=== PATIENT | male | born 1970 | race Caucasian/White ===

== ENCOUNTER 2017-03-10 22:48 | Emergency (ER) | payer MEDICARE, MEDICAID ==
[2017-03-11] MEDS ORDERED: HYDROCODONE/ACETAMINOPHEN 5-325 MG TABLET PO ONE (02:23)
--- NOTE | 2017-03-11 02:26 | ER Document Report ---
ED Hip Pain/Injury - General Chief Complaint: Hip Pain Stated Complaint: HIP PAIN Time Seen by Provider: 03/11/17 02:13 Mode of Arrival: Medic Information source: Patient Notes: Patient is a 46-year-old male presents to the ER today via EMS for right hip pain that is chronic. Patient states that he had x-rays and an MRI performed last month in [place] which showed "possible of the bone of the leg, very little cartilage and [id number]." Patient has an appointment this Thursday with a family care provider here in the area as he just moved here. He states that it is just very difficult to move because of the pain and that he hasn't gotten out of the bed for 3 days due to the pain. TRAVEL OUTSIDE OF THE [place] IN LAST 30 DAYS: No - Related Data Allergies/Adverse Reactions: IV dye Allergy (Uncoded 03/11/17 02:11) Past Medical History - General Information source: Patient - Social History Smoking Status: Unknown if Ever Smoked Family History: Reviewed & Not Pertinent Patient has suicidal ideation: No Patient has homicidal ideation: No Renal/ Medical History: Denies: Hx Peritoneal Dialysis Past Surgical History: Reports: Hx Cholecystectomy, Hx Orthopedic Surgery Review of Systems - Review of Systems Constitutional: No symptoms reported EENT: No symptoms reported Cardiovascular: No symptoms reported Respiratory: No symptoms reported Gastrointestinal: No symptoms reported Genitourinary: No symptoms reported Male Genitourinary: No symptoms reported Musculoskeletal: See HPI Skin: No symptoms reported Hematologic/Lymphatic: No symptoms reported Neurological/Psychological: No symptoms reported Physical Exam - Vital signs Vitals: Temp Pulse Resp BP Pulse Ox 97.7 F 138 H 18 113/74 96 03/10/17 23:13 03/10/17 23:13 03/10/17 23:13 03/10/17 23:13 03/10/17 23:13 - Notes Notes: PHYSICAL EXAMINATION: GENERAL: Obviously uncomfortable, but in no acute distress. HEAD: Atraumatic, normocephalic. EYES: Pupils equal round and reactive to light, extraocular movements intact, sclera anicteric, conjunctiva are normal. NECK: Normal range of motion, supple without lymphadenopathy LUNGS: CTAB and equal. No wheezes rales or rhonchi. HEART: Regular rate and rhythm without murmurs ABDOMEN: Soft, no tenderness. No guarding, no rebound BACK: no vertebral tenderness, normal ROM GI/: no CVA tenderness EXTREMITIES: Tender over lateral right hip, decreased range of motion of the right leg secondary to pain at the hip, no pitting edema. No cyanosis. NEUROLOGICAL: Cranial nerves grossly intact. Normal sensory/motor exams. PSYCH: Normal mood, normal affect. SKIN: Warm, Dry, normal turgor, no rashes or lesions noted Course - Re-evaluation Re-evalutation: 03/11/17 02:25 Patient started he had radiology as recent as last month and no new injury of this chronic problem. I will provide some pain medication patient follow-up with family care provider he has an appointment with later on in the week. - Vital Signs Vital signs: Temp Pulse Resp BP Pulse Ox 97.7 F 105 H 18 116/77 98 03/10/17 23:13 03/11/17 02:50 03/11/17 02:50 03/11/17 02:50 03/11/17 02:50 Discharge - Discharge Clinical Impression: Pain of right hip Condition: Stable Disposition: HOME, SELF-CARE Additional Instructions: Return immediately for any new or worsening symptoms. Follow up with primary care provider, call tomorrow to make followup appointment. Prescriptions: Hydrocodone/Acetaminophen [[place] 5-325 mg Tablet] 1 tab PO Q4 PRN #15 tablet PRN Reason:
[2017-03-11 02:51] VITALS: BP 116/77
== END 2017-03-11 02:50 | disposition home or self-care (01) ==
LOC: ER 22:48
DX: G89.29 Other chronic pain (principal); M25.551 Pain in right hip; Z91.041 Radiographic dye allergy status
CPT/HCPCS: 99283; A9270

== ENCOUNTER 2017-04-04 19:29 | Emergency (ER) | payer MEDICARE, MEDICAID ==
[2017-04-04] MEDS ORDERED: HYDROMORPHONE HCL INJ/PF 2 MG/ML AMPULE IM ONE (20:10)
--- NOTE | 2017-04-04 20:13 | ER Document Report ---
ED Medical Screen (RME) - General Chief Complaint: Hip Pain Stated Complaint: RIGHT HIP PAIN Time Seen by Provider: 04/04/17 20:01 Mode of Arrival: Wheelchair Information source: Patient Notes: This is a 46-year-old male with multiple medical problems to include insulin- dependent diabetes who presents with severe chronic right hip pain. He states that he has been dealing with this pain for years. He is awaiting follow-up by ortho, he states he had an MRI done 2 months ago in [place], but that his ortho physician here Dr. Mendoza has not been able to get the report yet. He states that he has been out of multiple medications including insulin for several months and that he does not have a glucometer. He reports blurry vision , no fevers. I have greeted and performed a rapid initial assessment of this patient. A comprehensive ED assessment and evaluation of the patient, analysis of test results and completion of the medical decision making process will be conducted by additional ED providers. TRAVEL OUTSIDE OF THE [place] IN LAST 30 DAYS: No - Related Data Allergies/Adverse Reactions: IV dye Allergy (Uncoded 03/11/17 02:11) Past Medical History Renal/ Medical History: Denies: Hx Peritoneal Dialysis Past Surgical History: Reports: Hx Cholecystectomy, Hx Orthopedic Surgery Physical Exam - Vital signs Vitals: Temp Pulse Resp BP Pulse Ox 97.7 F 111 H 20 147/86 H 95 04/04/17 19:35 04/04/17 19:35 04/04/17 19:35 04/04/17 19:35 04/04/17 19:35 Course - Vital Signs Vital signs: Temp Pulse Resp BP Pulse Ox 97.7 F 111 H 20 147/86 H 95 04/04/17 19:35 04/04/17 19:35 04/04/17 19:35 04/04/17 19:35 04/04/17 19:35
[2017-04-04 20:40] LABS: ABSOLUTE BASOPHILS # (AUTO) 0.1 10^3/uL (0.0-0.2); ABSOLUTE EOSINOPHILS # (AUTO) 0.3 10^3/uL (0.0-0.6); ABSOLUTE MONOCYTES (AUTO) 0.8 10^3/uL (0.1-1.4); ABSOLUTE NEUT (AUTO) 6.4 10^3/uL (1.7-8.2); BASOPHILS % (AUTO) 0.8 % (0-2); EOSINOPHILS % (AUTO) 2.5 % (0-6); HEMATOCRIT 46.1 % (37.9-51.0); HEMOGLOBIN 15.7 g/dL (13.5-17.0); LYMPHOCYTES % (AUTO) 28.4 % (13-45); MEAN CORPUSCULAR HEMOGLOBIN 32.8 pg (27.0-33.4); MEAN CORPUSCULAR VOLUME 97 fl (80-97); MONOCYTES % (AUTO) 7.5 % (3-13); RED BLOOD COUNT 4.78 10^6/uL (4.35-5.55); RED CELL DISTRIBUTION WIDTH 13.3 % (11.5-14.0); SEGMENTED NEUTROPHILS % (AUTO) 60.8 % (42-78); WHITE BLOOD COUNT 10.5 10^3/uL (4.0-10.5)
--- NOTE | 2017-04-04 20:52 | ER Document Report ---
ED General - General Chief Complaint: Hip Pain Stated Complaint: RIGHT HIP PAIN Time Seen by Provider: 04/04/17 20:01 Mode of Arrival: Wheelchair Information source: Patient Notes: Patient presents complaining of chronic right hip pain. Patient states he was told that he will likely need a hip replacement that he is waiting to follow-up with orthopedic doctor. Patient additionally reports that he has a history of diabetes but has been off of his medication for the past 3 months. Patient states he used to take Janumet and Lantus but is uncertain of the dosages. TRAVEL OUTSIDE OF THE [place] 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 Drug Abuse: None Occupation: None Lives with: Spouse/Significant other Family History: Reviewed & Not Pertinent Patient has suicidal ideation: No Patient has homicidal ideation: No - Past Medical History Cardiac Medical History: Reports: Hx Heart Attack - 2009, Hx Hypercholesterolemia, Hx Hypertension Pulmonary Medical History: Reports: Hx Bronchitis Endocrine Medical History: Reports: Hx Diabetes Mellitus Type 2 Renal/ Medical History: Denies: Hx Peritoneal Dialysis GI Medical History: Reports: Hx Gastroesophageal Reflux Disease Musculoskeltal Medical History: Reports Hx Arthritis Psychiatric Medical History: Reports: Hx Bipolar Disorder, Hx Depression - & personality disorder, anxiety Past Surgical History: Reports: Hx Cholecystectomy, Hx Orthopedic Surgery - Immunizations Hx Diphtheria, Pertussis, Tetanus Vaccination: No Review of Systems - Review of Systems Constitutional: No symptoms reported. denies: Fever, Recent illness EENT: No symptoms reported Cardiovascular: No symptoms reported Respiratory: No symptoms reported Gastrointestinal: No symptoms reported. denies: Abdominal pain, Nausea, Vomiting Genitourinary: No symptoms reported Male Genitourinary: No symptoms reported Musculoskeletal: Joint pain - right hip Skin: No symptoms reported Hematologic/Lymphatic: No symptoms reported Neurological/Psychological: No symptoms reported Physical Exam - Vital signs Vitals: Temp Pulse Resp BP Pulse Ox 97.7 F 111 H 20 147/86 H 95 04/04/17 19:35 04/04/17 19:35 04/04/17 19:35 04/04/17 19:35 04/04/17 19:35 - General General appearance: Appears well, Alert In distress: None - HEENT Head: Normocephalic, Atraumatic Eyes: Normal Conjunctiva: Normal Nasal: Normal Mouth/Lips: Normal Mucous membranes: Normal Neck: Normal, Supple. No: Lymphadenopathy - Respiratory Respiratory status: No respiratory distress Chest status: Nontender Breath sounds: Normal Chest palpation: Normal - Cardiovascular Rhythm: Regular Heart sounds: S1 appreciated, S2 appreciated Murmur: No Pulses: Normal: Posterior tibial, Dorsalis pedis - Abdominal Inspection: Normal Distension: No distension Tenderness: Nontender - Back Back: Normal, Nontender - Extremities General upper extremity: Normal inspection, Normal strength General lower extremity: Tender - right lateral hip tenderness that increases with flexion, abd/adduction, normal skin color and temperature overlying joint - Neurological Neuro grossly intact: Yes Cognition: Normal Jose A Coma Scale Eye Opening: Spontaneous Jose A Coma Scale Verbal: Oriented [place] Coma Scale Motor: Obeys Commands Jose A Coma Scale Total: 15 - Psychological Associated symptoms: Normal affect, Normal mood - Skin Skin Temperature: Warm Skin Moisture: Dry Skin irregularity: Rash - Erythematous rash to trunk and waistband area Course - Re-evaluation Re-evalutation: 04/05/17 00:[address] rothman regarding pt presentation, recommends only starting back initially on janumet (as we cannot confirm the doses of his medications and has not been on any diabetic medications for 6 months or longer) - Vital Signs Vital signs: Temp Pulse Resp BP Pulse Ox 97.7 F 92 18 138/91 H 97 04/04/17 19:35 04/05/17 01:13 04/05/17 01:13 04/05/17 01:13 04/05/17 01:13 - Laboratory Result Diagrams: 04/04/17 20:30 04/04/17 20:30 Laboratory results interpreted by me: 04/04/17 04/04/17 04/04/17 20:30 20:30 21:30 Plt Count 139 L BUN 22 H Glucose 552 H* POC Glucose Urine Glucose (UA) >=500 H 04/04/17 23:42 Plt Count BUN Glucose POC Glucose 333 H Urine Glucose (UA) 04/05/17 00:19 Labs- Entire Visit 04/04/17 04/04/17 04/04/17 20:30 20:30 21:30 WBC 10.5 RBC 4.78 Hgb 15.7 Hct 46.1 MCV 97 MCH 32.8 MCHC 34.0 RDW 13.3 Plt Count 139 L Seg Neutrophils % 60.8 Lymphocytes % 28.4 Monocytes % 7.5 Eosinophils % 2.5 Basophils % 0.8 Absolute Neutrophils 6.4 Absolute Lymphocytes 3.0 Absolute Monocytes 0.8 Absolute Eosinophils 0.3 Absolute Basophils 0.1 Sodium 137.6 Potassium 4.6 Chloride 99 Carbon Dioxide 24 Anion Gap 15 BUN 22 H Creatinine 0.92 Est GFR ( Amer) > 60 Est GFR (Non-Af Amer) > 60 Glucose 552 H* POC Glucose Calcium 9.7 Total Bilirubin 0.6 Direct Bilirubin 0.4 Indirect Bilirubin Not Reportable Neonat Total Bilirubin Not Reportable AST 34 ALT 46 Alkaline Phosphatase 98 Total Protein 7.5 Albumin 4.4 Urine Color STRAW Urine Appearance CLEAR Urine pH 5.0 Ur Specific [place] 1.032 Urine Protein NEGATIVE Urine Glucose (UA) >=500 H Urine Ketones NEGATIVE Urine Blood NEGATIVE Urine Nitrite NEGATIVE Urine Bilirubin NEGATIVE Urine Urobilinogen NEGATIVE Ur Leukocyte Esterase NEGATIVE Urine WBC (Auto) 0 Urine Ascorbic Acid NEGATIVE 04/04/17 23:42 WBC RBC Hgb Hct MCV MCH MCHC RDW Plt Count Seg Neutrophils % Lymphocytes % Monocytes % Eosinophils % Basophils % Absolute Neutrophils Absolute Lymphocytes Absolute Monocytes Absolute Eosinophils Absolute Basophils Sodium Potassium Chloride Carbon Dioxide Anion Gap BUN Creatinine Est GFR ( Amer) Est GFR (Non-Af Amer) Glucose POC Glucose 333 H Calcium Total Bilirubin Direct Bilirubin Indirect Bilirubin Neonat Total Bilirubin AST ALT Alkaline Phosphatase Total Protein Albumin Urine Color Urine Appearance Urine pH Ur Specific [place] Urine Protein Urine Glucose (UA) Urine Ketones Urine Blood Urine Nitrite Urine Bilirubin Urine Urobilinogen Ur Leukocyte Esterase Urine WBC (Auto) Urine Ascorbic Acid 04/05/17 07:31 Discharge - Discharge Clinical Impression: Chronic right hip pain, Skin rash, Hx of diabetes mellitus Condition: Stable Disposition: HOME, SELF-CARE Instructions: Scabies ([facility]), Diabetes ([facility]), Chronic Pain Control ([facility]), Oral Narcotic Medication ([facility]), Anti-Mite Skin Creams Additional Instructions: Return immediately for any new or worsening symptoms Followup with your primary care provider, call tomorrow to make a followup appointment Follow-up with your orthopedic doctor for further management of your chronic hip pain. Monitor your blood sugar at least twice a day. Prescriptions: Blood-Glucose Meter [Tweetworksuch Ultramini] 1 each MC BID #1 kit Hydrocodone/Acetaminophen [[place] 5-325 Tablet] 1 each PO Q4 PRN #15 tablet PRN Reason: Permethrin [Elimite] 60 gm TP ONCE #60 gm Sitagliptin Phos/Metformin HCl [Janumet 50-500 mg Tablet] 1 each PO BID #60 tablet Referrals: FAHEEM CHOI PA-C [NO LOCAL MD] - Follow up tomorrow
[2017-04-04 20:57] LABS: ALANINE AMINOTRANSFERASE 46 U/L (21-72); ALBUMIN 4.4 g/dL (3.5-5.0); ALKALINE PHOSPHATASE 98 U/L (38-126); ANION GAP 15 (5-19); ASPARTATE AMINO TRANSFERASE 34 U/L (17-59); BILIRUBIN,DIRECT 0.4 mg/dL (0.0-0.4); BILIRUBIN,TOTAL 0.6 mg/dL (0.2-1.3); BLOOD UREA NITROGEN 22 mg/dL (7-20); CALCIUM 9.7 mg/dL (8.4-10.2); CARBON DIOXIDE 24 mmol/L (22-30); CHLORIDE 99 mmol/L (98-107); CREATININE RESULT 0.92 mg/dL (0.52-1.25); POTASSIUM 4.6 mmol/L (3.6-5.0); SODIUM 137.6 mmol/L (137-145); TOTAL PROTEIN 7.5 g/dL (6.3-8.2)
[2017-04-04 21:05] LABS: GLUCOSE 552 mg/dL (75-110)
[2017-04-04] MEDS ORDERED: INSULIN REG, HUMAN 100 UNIT/ML 3 ML VIAL (PYX) SUBCUT ONE (21:19)
[2017-04-04] MEDS ORDERED: NORMAL SALINE 1000 ML 1,000 ML IV ONE ×2 (21:19→22:37)
[2017-04-04] MEDS ORDERED: ONDANSETRON HCL INJ/PF 4 MG/2 ML SDV IV ONE (21:33)
[2017-04-04 21:50] LABS: APPEARANCE,URINE CLEAR; BILIRUBIN,URINE NEGATIVE (NEGATIVE); GLUCOSE, URINE >=500 mg/dL (NEGATIVE); KETONES,URINE NEGATIVE (NEGATIVE); LEUKOCYTE ESTERASE,URINE NEGATIVE (NEGATIVE); NITRITE,URINE NEGATIVE (NEGATIVE); PROTEIN,URINE NEGATIVE (NEGATIVE); URINE SPECIFIC GRAVITY 1.032; UROBILINOGEN,URINE NEGATIVE mg/dL (<2.0)
[2017-04-05 01:15] VITALS: BP 138/91
== END 2017-04-05 01:00 | disposition home or self-care (01) ==
LOC: ER 19:29
DX: G89.29 Other chronic pain (principal); M25.551 Pain in right hip; E11.9 Type 2 diabetes mellitus without complications; T38.3X6A Underdosing of insulin and oral hypoglycemic [antidiabetic] drugs, initial encounter; Z91.138 Patient's unintentional underdosing of medication regimen for other reason; Z91.14 Patient's other noncompliance with medication regimen; R21 Rash and other nonspecific skin eruption; I25.2 Old myocardial infarction; I10 Essential (primary) hypertension; Z72.0 Tobacco use; Z91.041 Radiographic dye allergy status
CPT/HCPCS: 99283; 96372; 96374; 36415; 82962; 85025; 80053; 81001; J1170; A9270; J2405; J7030; J1815

== ENCOUNTER 2017-05-28 12:54 | Emergency (ER) | payer MEDICARE, MEDICAID ==
[2017-05-28] MEDS ORDERED: ASPIRIN 81 MG TABLET, CHEWABLE PO ONE (12:58)
--- NOTE | 2017-05-28 13:16 | ER Document Report ---
ED Cardiac - General Stated Complaint: CHEST PAIN Time Seen by Provider: 05/28/17 13:05 Mode of Arrival: Medic Notes: 47 yo exsmoker, tobbaco snuff, recovering ETOH-2 cans beers last week, male, hx PE,panreatitis, sleep apnea, hypertension, DM 2, hyperliedemia. Fam Hx:lung cancer, DM, CAD-mom, was brought in by EMS with c/o shortness of breath, someone sitting on my chest, weak, since 0100 while at [facility]. When got home tried to sleep got sharp pains in chest and ribs with shortness of breath woke him up. Right now has dull lower sternal pain that radiates through to his back. Feels like when he had the DVT in right leg and PE. Sharp pain in left leg a few seconds ago. No recent recent upper respiratory illness, no fever. Nausea this am, no vomit, diarrhea x 4 early this morning. TRAVEL OUTSIDE OF THE [place] IN LAST 30 DAYS: No - Related Data Allergies/Adverse Reactions: IV dye Allergy (Uncoded 03/11/17 02:11) Past Medical History - General Information source: Patient - Social History Smoking Status: Former Smoker Frequency of alcohol use: recovering alcoholic, 2 beers last week Drug Abuse: None Lives with: Spouse/Significant other Family History: Reviewed & Not Pertinent - Past Medical History Cardiac Medical History: Reports: Hx Heart Attack - 2009, Hx Hypercholesterolemia, Hx Hypertension Pulmonary Medical History: Reports: Hx Bronchitis Endocrine Medical History: Reports: Hx Diabetes Mellitus Type 2 Renal/ Medical History: Denies: Hx Peritoneal Dialysis GI Medical History: Reports: Hx Gastroesophageal Reflux Disease, Other - pancreatitis Musculoskeltal Medical History: Reports Hx Arthritis Psychiatric Medical History: Reports: Hx Bipolar Disorder, Hx Depression - & personality disorder, anxiety Past Surgical History: Reports: Hx Cholecystectomy, Hx Orthopedic Surgery - Immunizations Hx Diphtheria, Pertussis, Tetanus Vaccination: No Review of Systems - Review of Systems Constitutional: No symptoms reported EENT: No symptoms reported Cardiovascular: See HPI Respiratory: No symptoms reported Gastrointestinal: See HPI Genitourinary: No symptoms reported Male Genitourinary: No symptoms reported Musculoskeletal: No symptoms reported Skin: No symptoms reported Hematologic/Lymphatic: No symptoms reported Neurological/Psychological: No symptoms reported Physical Exam - Vital signs Vitals: Pulse Ox 99 05/28/17 13:13 Interpretation: Normal - General General appearance: Appears well, Alert In distress: None - HEENT Head: Normocephalic, Atraumatic Eyes: Normal Conjunctiva: Normal Pupils: PERRL Mucous membranes: Normal Pharynx: Normal Neck: Supple. No: Lymphadenopathy - Respiratory Respiratory status: No respiratory distress Chest status: Nontender Breath sounds: Normal Chest palpation: Normal - Cardiovascular Rhythm: Regular Heart sounds: Normal auscultation Murmur: No - Abdominal Inspection: Normal Distension: No distension Bowel sounds: Normal Tenderness: Tender - epigatrum, RUQ (hx kaden) Organomegaly: No organomegaly - Back Back: Normal, Nontender. No: Deformity/step-off - Extremities General upper extremity: Normal inspection, Nontender, Normal color, Normal ROM , Normal temperature General lower extremity: Normal inspection, Nontender, Normal color, Normal ROM , Normal temperature, Normal weight bearing. No: Estevan's sign - Neurological Neuro grossly intact: Yes Cognition: Normal Orientation: AAOx4 [place] Coma Scale Eye Opening: Spontaneous [place] Coma Scale Verbal: Oriented Jose A Coma Scale Motor: Obeys Commands Jose A Coma Scale Total: 15 Speech: Normal Motor strength normal: LUE, RUE, LLE, RLE Sensory: Normal - Psychological Associated symptoms: Normal affect, Normal mood - Skin Skin Temperature: Warm Skin Moisture: Dry Skin Color: Normal Skin irregularity: negative: Rash Course - Re-evaluation Re-evalutation: 05/28/17 18:[address] galvan, pancreas OK on CT scan. 05/28/17 18:29 pt eating salad, feels better, instruction given, copy of labs, pt will follow up with faheem choi for further evaluation of the pulmonary nodule 05/28/17 18:[address] rothman , pt can be discharged home with f/u for pulmonary nodule. 05/28/17 18:31 - Vital Signs Vital signs: Temp Pulse Resp BP Pulse Ox 17 132/81 H 98 05/28/17 16:00 05/28/17 13:16 05/28/17 16:00 - Laboratory Result Diagrams: 05/28/17 13:30 05/28/17 13:30 Laboratory results interpreted by me: 05/28/17 05/28/17 05/28/17 13:30 13:30 13:30 RBC 4.32 L Plt Count 115 L D-Dimer 0.96 H Glucose 262 H AST 97 H ALT 82 H Lipase 841.2 H - EKG Interpretation by Me EKG shows normal: Sinus rhythm Rate: Normal Rhythm: NSR - no acute change Discharge - Discharge Clinical Impression: Epigastric pain, Pulmonary nodule, right Pancreatitis Qualifiers: Chronicity: acute Pancreatitis type: alcohol induced Acute pancreatitis complication: unspecified Qualified Code(s): K85.20 - Alcohol induced acute pancreatitis without necrosis or infection Chest pain Qualifiers: Chest pain type: unspecified Qualified Code(s): R07.9 - Chest pain, unspecified Condition: Good Disposition: HOME, SELF-CARE Instructions: Abdominal Pain ([facility]), Chest Pain of Unclear Cause ([facility]), Oral Narcotic Medication ([facility]), Pancreatitis ([facility]) Additional Instructions: No ETOH plenty of fluids nexium daily to er if worse follow up with your provider for PET-CT scan for the pulmonary nodule that was seen on the CT today. Please complete the patient satisfaction survey if you get one, and return it.. If you do not receive a survey, then you can go to the [facility] website, [email or web address] and place your comments about your very good care. Thank you very much. It was a pleasure being your medical provider today. Prescriptions: Hydrocodone Bit/Acetaminophen [Hydrocodon-Acetaminophen 5-325] 1 - 2 each PO Q4HP PRN #15 tablet PRN Reason: Promethazine HCl [Phenergan 25 mg Tablet] 25 mg PO Q4HP PRN #20 tablet PRN Reason: Esomeprazole Magnesium [Nexium] 40 mg PO DAILY #30 capsule. Referrals: FAHEEM CHOI PA-C [Primary Care Provider] - Follow up in 1 week
--- NOTE | 2017-05-28 13:41 | RADIOLOGY REPORT (SQ) ---
EXAM DESCRIPTION: CHEST SINGLE VIEW COMPLETED DATE/TIME: 05/28/2017 1:26 pm REASON FOR STUDY: bed 15 chest pain COMPARISON: None. EXAM PARAMETERS: NUMBER OF VIEWS: One view. TECHNIQUE: Single frontal radiographic view of the chest acquired. RADIATION DOSE: NA LIMITATIONS: None. FINDINGS: LUNGS AND PLEURA: Along the right anterior 2nd rib interspace, a 1 cm nodule is projected which may be a nodule in the right upper lobe or superior segment right lower lobe. CT chest recomme nded for followup. No focal infiltrates. No pleural effusion. No pneumothorax. MEDIASTINUM AND HILAR STRUCTURES: No masses. Contour normal. HEART AND VASCULAR STRUCTURES: Heart normal in size. Normal vasculature. BONES: No acute findings. HARDWARE: None in the chest. OTHER: No other significant finding. IMPRESSION: 1 cm nodule projected over the right mid lung. CT chest recommended for follow-up. TECHNICAL DOCUMENTATION: JOB ID: [id number]
[2017-05-28 13:42] LABS: ABSOLUTE EOSINOPHILS # (AUTO) 0.1 10^3/uL (0.0-0.6); ABSOLUTE LYMPHOCYTES (AUTO) 1.8 10^3/uL (0.5-4.7); ABSOLUTE MONOCYTES (AUTO) 0.7 10^3/uL (0.1-1.4); ABSOLUTE NEUT (AUTO) 5.4 10^3/uL (1.7-8.2); BASOPHILS % (AUTO) 0.4 % (0-2); EOSINOPHILS % (AUTO) 0.9 % (0-6); HEMATOCRIT 40.9 % (37.9-51.0); HEMOGLOBIN 14.2 g/dL (13.5-17.0); HGB HCT DIFFERENCE 1.7; LYMPHOCYTES % (AUTO) 22.4 % (13-45); MEAN CORPUSCULAR HEMOGLOBIN 32.9 pg (27.0-33.4); MEAN CORPUSCULAR HGB CONC 34.8 g/dL (32.0-36.0); MEAN CORPUSCULAR VOLUME 95 fl (80-97); MONOCYTES % (AUTO) 9.2 % (3-13); RED BLOOD COUNT 4.32 10^6/uL (4.35-5.55); RED CELL DISTRIBUTION WIDTH 13.2 % (11.5-14.0); SEGMENTED NEUTROPHILS % (AUTO) 67.1 % (42-78)
[2017-05-28 14:02] LABS: ALANINE AMINOTRANSFERASE 82 U/L (21-72); ALKALINE PHOSPHATASE 94 U/L (38-126); ANION GAP 14 (5-19); ASPARTATE AMINO TRANSFERASE 97 U/L (17-59); BILIRUBIN,DIRECT 0.4 mg/dL (0.0-0.4); BILIRUBIN,TOTAL 0.9 mg/dL (0.2-1.3); BLOOD UREA NITROGEN 13 mg/dL (7-20); CALCIUM 9.3 mg/dL (8.4-10.2); CARBON DIOXIDE 24 mmol/L (22-30); CHLORIDE 100 mmol/L (98-107); CREATINE KINASE 92 U/L (55-170); CREATININE RESULT 0.77 mg/dL (0.52-1.25); GLUCOSE 262 mg/dL (75-110); LIPASE 841.2 U/L (23-300); SODIUM 137.9 mmol/L (137-145); TOTAL PROTEIN 6.7 g/dL (6.3-8.2)
[2017-05-28 14:17] LABS: CREATINE KINASE MB 1.22 ng/mL (<4.55); TROPONIN I < 0.012 ng/mL
[2017-05-28] MEDS ORDERED: NORMAL SALINE 1000 ML 1,000 ML IV ONE (14:47)
[2017-05-28] MEDS ORDERED: ONDANSETRON HCL INJ/PF 4 MG/2 ML SDV IV ONE (14:47)
[2017-05-28] MEDS ORDERED: MORPHINE SULFATE 10 MG/ML INJ IV ONE (14:47)
[2017-05-28] MEDS ORDERED: DIPHENHYDRAMINE HCL 50 MG/ML VIAL IV ONE (15:10)
[2017-05-28] MEDS ORDERED: METHYLPREDNISOLONE INJ 125 MG/2 ML SDV IV ONE (15:11)
[2017-05-28] MEDS ORDERED: FAMOTIDINE INJ/PF 20 MG/2 ML SDV IV ONE (15:11)
--- NOTE | 2017-05-28 17:18 | RADIOLOGY REPORT (SQ) ---
EXAM DESCRIPTION: CTA CHEST COMPLETED DATE/TIME: 05/28/2017 5:02 pm REASON FOR STUDY: r/o pe, look at nodule, look at pancreas COMPARISON: None. TECHNIQUE: CT scan of the chest performed using helical scanning technique with dynamic intravenous contrast injection. Images reviewed with lung, soft tissue and bone windows. Reconstructed coronal and sagittal MPR images reviewed. Additional 3 dimensional post-processing performed to develop Maximal Intensity Projection images (AL P). All images stored on PACS. All CT scanners at this facility use dose modulation, iterative reconstruction, and/or weight based d osing when appropriate to reduce radiation dose to as low as reasonably achievable (ALARA). [facility]: Dose Right [facility]: CareDose [facility]: Dose Right [facility]: Teradose 4D [facility]: Venvy Interactive Video CONTRAST TYPE AND DOSE: contrast/concentration: Isovue 370.00 mg/ml; Total Contrast Delivered: 80.0 ml; Total Saline Delivered: 100.1 ml RENAL FUNCTION: Creatinine 0.8 BUN 13 RADIATION DOSE: Up-to-date CT equipment and radiation dose reduction techniques were employed. CTDIv ol: 23.4 - 40.2 mGy. DLP: 1650 mGy-cm. . LIMITATIONS: None. FINDINGS: LUNGS AND PLEURA: There is a 10 x 21 mm nodule in the right lung on image 48 series 4. AORTA AND GREAT VESSELS: No aneurysm or dissection. HEART: No pericardial effusion. PULMONARY ARTERIES: No emboli visualized in the main pulmonary arteries or the segmental branches. HILAR AND MEDIASTINAL STRUCTURES: No identified masses or abnormal nodes. HARDWARE: None in the chest. UPPER ABDOMEN: No significant findings. Limited exam. THYROID AND OTHER SOFT TISSUES: No masses. No adenopathy. BONES: Bridging osteophytes is seen in the mid to lower thoracic spine. 3D MIPS: Confirm above findings. OTHER: No other significant finding. IMPRESSION: 1. There is no evidence of pulmonary embolus. 2. There is a 10 x 21 mm right pulmonary nodule. PET-CT is recommended. 3. Spondylosis. TECHNICAL DOCUMENTATION: JOB ID: [id number] Quality ID # [id number]: Final reports with documentation of one or more dose reduction techniques (e.g., Au tomated exposure control, adjustment of the mA and/or kV according to patient size, use of iterative reconstruction technique) 2010 [employer]- All Rights Reserved
[2017-05-28] MEDS ORDERED: LANSOPRAZOLE 30 MG TAB.RAP.DR PO ONE (18:21)
[2017-05-28 18:51] VITALS: BP 127/82
--- NOTE | 2017-05-28 19:21 | EKG REPORT ---
SEVERITY:- ABNORMAL ECG - SINUS RHYTHM NONSPECIFIC T ABNORMALITIES, INFERIOR LEADS : Confirmed by: Giovanni Slater MD 28-May-2017 19:20:30
== END 2017-05-28 19:03 | disposition home or self-care (01) ==
LOC: ER 12:54
DX: R10.13 Epigastric pain (principal); R91.1 Solitary pulmonary nodule; K85.20 Alcohol induced acute pancreatitis without necrosis or infection; R07.9 Chest pain, unspecified; F10.10 Alcohol abuse, uncomplicated; I10 Essential (primary) hypertension; E11.9 Type 2 diabetes mellitus without complications; E78.5 Hyperlipidemia, unspecified; Z87.891 Personal history of nicotine dependence
CPT/HCPCS: 93005; 99285; 96361; 96374; 96375; 36415; 82553; 82550; 83690; 85025; 80053; 84484; 85379; 71010; 71275; 93010; A9270 ×2; J1200; J2930; J2270; J2405; J7030; S0028

== ENCOUNTER 2017-05-30 19:48 | Emergency (ER) | payer MEDICARE, MEDICAID ==
[2017-05-30] MEDS ORDERED: ONDANSETRON HCL INJ/PF 4 MG/2 ML SDV IV ONE (20:14)
[2017-05-30] MEDS ORDERED: NORMAL SALINE 1000 ML 1,000 ML IV ONE ×2 (20:14→21:36)
[2017-05-30] MEDS ORDERED: MORPHINE SULFATE 10 MG/ML INJ IV ONE (20:14)
--- NOTE | 2017-05-30 20:17 | ER Document Report ---
ED General - General Chief Complaint: Nausea/Vomiting Stated Complaint: NAUSEA/VOMITING Time Seen by Provider: 05/30/17 20:04 Notes: Patient is a 47-year-old male who comes by EMS for chief complaint of pain in his upper abdomen and an episode of vomiting after he ate salad earlier today. Patient states that he also has a "right lung cyst which is hurting". When asked the location of his pain he points to his right upper abdominal area and upper abdomen. He denies shortness of breath, fever, had a bowel movement 2 days ago which was normal reported. He has had a cholecystectomy. Past medical history of type 2 diabetes, tobacco abuse, former alcoholism, states he has not drank in 2 weeks, also was seen 2 days ago in this department and diagnosed with a right-sided pulmonary nodule which she was told to get a PET scan for. Patient is unclear the specific details of this. Patient states he was given Nexium, nausea medication, and hydrocodone which is "doing nothing" for him. Patient states he was feeling fine until he vomited tonight. TRAVEL OUTSIDE OF THE [place] IN LAST 30 DAYS: No - Related Data Allergies/Adverse Reactions: IV dye Allergy (Uncoded 03/11/17 02:11) Past Medical History - General Information source: Patient - Social History Smoking Status: Never Smoker Frequency of alcohol use: Heavy Drug Abuse: None Lives with: Family Family History: Reviewed & Not Pertinent - Past Medical History Cardiac Medical History: Reports: Hx Heart Attack - 2009, Hx Hypercholesterolemia, Hx Hypertension Pulmonary Medical History: Reports: Hx Bronchitis Endocrine Medical History: Reports: Hx Diabetes Mellitus Type 2 Renal/ Medical History: Denies: Hx Peritoneal Dialysis GI Medical History: Reports: Hx Gastroesophageal Reflux Disease Musculoskeltal Medical History: Reports Hx Arthritis Psychiatric Medical History: Reports: Hx Bipolar Disorder, Hx Depression - & personality disorder, anxiety Past Surgical History: Reports: Hx Cholecystectomy, Hx Orthopedic Surgery - Immunizations Hx Diphtheria, Pertussis, Tetanus Vaccination: No Review of Systems - Review of Systems Constitutional: No symptoms reported EENT: No symptoms reported Cardiovascular: No symptoms reported Respiratory: See HPI Gastrointestinal: See HPI Genitourinary: No symptoms reported Male Genitourinary: No symptoms reported Musculoskeletal: No symptoms reported Skin: No symptoms reported Hematologic/Lymphatic: No symptoms reported Neurological/Psychological: No symptoms reported Physical Exam - Vital signs Vitals: Temp Pulse Ox 97.9 F 90 L 08/05/17 19:55 05/30/17 19:55 Interpretation: Normal - General General appearance: Appears well, Alert In distress: None - Patient alert, well-appearing, no signs of distress - HEENT Head: Normocephalic, Atraumatic Eyes: Normal Pupils: PERRL - Respiratory Respiratory status: No respiratory distress Chest status: Nontender Breath sounds: Normal Chest palpation: Normal - Cardiovascular Rhythm: Regular Heart sounds: Normal auscultation Murmur: No - Abdominal Inspection: Normal Distension: No distension Bowel sounds: Normal Tenderness: Nontender - Completely nontender abdomen. No: Tender, McBurney's point, Palmer's sign, Guarding Organomegaly: No organomegaly - Back Back: Normal, Nontender. No: Tender, CVA tenderness - Extremities General upper extremity: Normal inspection, Nontender, Normal color, Normal ROM , Normal temperature General lower extremity: Normal inspection, Nontender, Normal color, Normal ROM , Normal temperature, Normal weight bearing. 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 Chemistry shows hyperglycemia but no acidosis, otherwise unremarkable. Lipase is mildly elevated, however I do not appreciate any tenderness in the epigastric or upper abdomen areas on examination, in addition to this is significantly decreased from the other day when he went home. Patient drinking and eating without any difficulty during his stay here on testing of this. Patient given IV fluids, medications. He is symptom-free at this time. I discussed again patient's pulmonary nodule and discussed follow- up for this, he was given a report for this this time, he states that he is changing primary but will be seen in the next 4 days. I also am giving him Carafate to take along with his Nexium, discussed avoidance of alcohol, discussed return precautions in detail. Patient and significant other state understanding and agreement. Patient asking for a refill of his Seroquel, states he cannot sleep without it and he has run out of it. Patient states because he is changing primary care he was unable to get a prescription for this. He was provided with a prescription for this. - Vital Signs Vital signs: Temp Pulse Resp BP Pulse Ox 98.6 F 18 136/82 H 98 05/30/17 22:01 05/30/17 22:01 05/30/17 22:01 05/30/17 22:01 - Laboratory Result Diagrams: 05/30/17 20:10 05/30/17 20:10 Laboratory results interpreted by me: 05/30/17 05/30/17 05/30/17 20:10 20:10 20:51 RBC 4.23 L Plt Count 97 L BUN 21 H Glucose 358 H Lipase 677.3 H Urine Glucose (UA) >=500 H Discharge - Discharge Clinical Impression: Epigastric pain Nausea and vomiting Qualifiers: Vomiting type: unspecified Vomiting Intractability: non-intractable Qualified Code(s): R11.2 - Nausea with vomiting, unspecified Condition: Stable Disposition: HOME, SELF-CARE Additional Instructions: You have been rehydrated, drink clear fluids, start with bland diet at home and progress. Continue Nexium, take Carafate as well. Continue to avoid alcohol. Please follow-up on Thursday as planned with your provider, take the report with you. Return to emergency department for any concerning or worsening symptoms including uncontrolled vomiting, vomiting blood, difficulty breathing, fever, or any other concerning symptoms. Prescriptions: Quetiapine Fumarate [Seroquel] 400 mg PO QHS #30 tablet Sucralfate [Carafate 1 gm Tablet] 1 gm PO QID #20 tablet Referrals: FAHEEM CHOI PA-C [Primary Care Provider] - Follow up as needed
[2017-05-30 20:26] LABS: ABSOLUTE EOSINOPHILS # (AUTO) 0.1 10^3/uL (0.0-0.6); ABSOLUTE LYMPHOCYTES (AUTO) 2.1 10^3/uL (0.5-4.7); ABSOLUTE MONOCYTES (AUTO) 0.7 10^3/uL (0.1-1.4); ABSOLUTE NEUT (AUTO) 4.7 10^3/uL (1.7-8.2); BASOPHILS % (AUTO) 0.4 % (0-2); EOSINOPHILS % (AUTO) 1.2 % (0-6); HEMATOCRIT 40.6 % (37.9-51.0); HEMOGLOBIN 14.1 g/dL (13.5-17.0); HGB HCT DIFFERENCE 1.7; LYMPHOCYTES % (AUTO) 27.8 % (13-45); MEAN CORPUSCULAR HEMOGLOBIN 33.3 pg (27.0-33.4); MEAN CORPUSCULAR HGB CONC 34.7 g/dL (32.0-36.0); MEAN CORPUSCULAR VOLUME 96 fl (80-97); MONOCYTES % (AUTO) 9.2 % (3-13); RED BLOOD COUNT 4.23 10^6/uL (4.35-5.55); RED CELL DISTRIBUTION WIDTH 13.6 % (11.5-14.0); SEGMENTED NEUTROPHILS % (AUTO) 61.4 % (42-78); WHITE BLOOD COUNT 7.7 10^3/uL (4.0-10.5)
[2017-05-30 20:38] LABS: ALANINE AMINOTRANSFERASE 67 U/L (21-72); ALBUMIN 3.7 g/dL (3.5-5.0); ALKALINE PHOSPHATASE 103 U/L (38-126); ANION GAP 11 (5-19); ASPARTATE AMINO TRANSFERASE 37 U/L (17-59); BILIRUBIN,DIRECT 0.3 mg/dL (0.0-0.4); BILIRUBIN,TOTAL 0.4 mg/dL (0.2-1.3); BLOOD UREA NITROGEN 21 mg/dL (7-20); CALCIUM 9.2 mg/dL (8.4-10.2); CARBON DIOXIDE 28 mmol/L (22-30); CHLORIDE 100 mmol/L (98-107); CREATININE RESULT 0.92 mg/dL (0.52-1.25); GLUCOSE 358 mg/dL (75-110); LIPASE 677.3 U/L (23-300); POTASSIUM 4.4 mmol/L (3.6-5.0); SODIUM 138.8 mmol/L (137-145); TOTAL PROTEIN 6.4 g/dL (6.3-8.2)
[2017-05-30 21:12] LABS: APPEARANCE,URINE CLEAR; BILIRUBIN,URINE NEGATIVE (NEGATIVE); GLUCOSE, URINE >=500 mg/dL (NEGATIVE); KETONES,URINE NEGATIVE (NEGATIVE); LEUKOCYTE ESTERASE,URINE NEGATIVE (NEGATIVE); NITRITE,URINE NEGATIVE (NEGATIVE); PROTEIN,URINE NEGATIVE (NEGATIVE); URINE SPECIFIC GRAVITY 1.031; UROBILINOGEN,URINE NEGATIVE mg/dL (<2.0)
[2017-05-30 22:17] VITALS: BP 136/82
--- NOTE | 2017-05-31 21:28 | EKG REPORT ---
SEVERITY:- BORDERLINE ECG - SINUS RHYTHM BORDERLINE T ABNORMALITIES, INFERIOR LEADS : Confirmed by: Giovanni Slater MD 31-May-2017 21:28:31
== END 2017-05-30 22:25 | disposition home or self-care (01) ==
LOC: ER 19:48
DX: R10.13 Epigastric pain (principal); R11.2 Nausea with vomiting, unspecified; R10.10 Upper abdominal pain, unspecified; E11.9 Type 2 diabetes mellitus without complications
CPT/HCPCS: 99285; 96361; 96374; 96375; 36415; 82962; 83690; 85025; 80053; 81001; 93010; J2270; J2405; J7030

== ENCOUNTER 2017-06-21 20:50 | Observation (INO) | payer MEDICARE, MEDICAID ==
--- NOTE | 2017-06-21 21:15 | ER Document Report ---
ED General - General Chief Complaint: Chest Pain Stated Complaint: CHEST PAIN Time Seen by Provider: 06/21/17 21:04 Mode of Arrival: Medic Information source: Patient Notes: This is a 47-year-old man with a history of alcoholic pancreatitis, hypertension , diabetes, dyslipidemia, VTE no longer on anticoagulation). TRAVEL OUTSIDE OF THE [place] IN LAST 30 DAYS: No - HPI Onset: Just prior to arrival Onset/Duration: Gradual Quality of pain: Dull Severity: None Pain Level: Denies Associated symptoms: Chest pain. denies: Fever Exacerbated by: Movement Relieved by: Denies Similar symptoms previously: Yes Recently seen / treated by doctor: No - Related Data Allergies/Adverse Reactions: IV dye Allergy (Uncoded 03/11/17 02:11) Past Medical History - General Information source: Patient - Social History Smoking Status: Never Smoker Cigarette use (# per day): No Chew tobacco use (# tins/day): No Frequency of alcohol use: None Drug Abuse: None Lives with: Family Family History: Reviewed & Not Pertinent Patient has suicidal ideation: No Patient has homicidal ideation: No - Past Medical History Cardiac Medical History: Reports: Hx Heart Attack - 2009, Hx Hypercholesterolemia, Hx Hypertension Pulmonary Medical History: Reports: Hx Bronchitis Endocrine Medical History: Reports: Hx Diabetes Mellitus Type 2 Renal/ Medical History: Denies: Hx Peritoneal Dialysis GI Medical History: Reports: Hx Gastroesophageal Reflux Disease Musculoskeltal Medical History: Reports Hx Arthritis Psychiatric Medical History: Reports: Hx Bipolar Disorder, Hx Depression - & personality disorder, anxiety Past Surgical History: Reports: Hx Cholecystectomy, Hx Orthopedic Surgery - Immunizations Hx Diphtheria, Pertussis, Tetanus Vaccination: No Review of Systems - Review of Systems Constitutional: denies: Chills, Fever EENT: No symptoms reported Cardiovascular: See HPI Respiratory: No symptoms reported Gastrointestinal: No symptoms reported Genitourinary: No symptoms reported Male Genitourinary: No symptoms reported Musculoskeletal: No symptoms reported Skin: No symptoms reported Hematologic/Lymphatic: No symptoms reported Neurological/Psychological: No symptoms reported Physical Exam - Vital signs Vitals: Resp Pulse Ox 19 93 06/21/17 21:04 06/21/17 21:04 Notes: Physical exam: GENERAL: 47-year-old man, alert and oriented 3, no acute distress. HEAD: Atraumatic, normocephalic. EYES: Pupils equal round and reactive to light, extraocular movements intact, sclera anicteric, conjunctiva are normal. ENT: TMs normal, nares patent, oropharynx clear without exudates. Moist mucous membranes. NECK: Normal range of motion, supple without lymphadenopathy or JVD. LUNGS: Breath sounds clear to auscultation bilaterally and equal. No wheezes rales or rhonchi. HEART: Regular rate and rhythm without murmurs, rubs or gallops. ABDOMEN: Soft, normoactive bowel sounds. No tenderness to palpation. No guarding, no rebound. No masses appreciated. EXTREMITIES: Normal range of motion, no pitting or edema. No clubbing or cyanosis. NEUROLOGICAL: Cranial nerves II through XII grossly intact. Normal speech, normal gait. PSYCH: Normal mood, normal affect. SKIN: Warm, Dry, normal turgor, no rashes or lesions noted. Course - Vital Signs Vital signs: Temp Pulse Resp BP Pulse Ox 98.5 F 105 H 20 144/90 H 94 06/21/17 21:16 06/21/17 21:16 06/22/17 02:16 06/22/17 02:15 06/22/17 02:16 - Laboratory Result Diagrams: 06/21/17 21:11 06/21/17 21:11 Laboratory results interpreted by me: 06/21/17 06/21/17 06/22/17 21:11 21:11 00:40 Plt Count 132 L Sodium 128.7 L Chloride 91 L BUN 26 H Glucose 638 H* POC Glucose 433 H* Direct Bilirubin 0.6 H Alkaline Phosphatase 133 H 06/22/17 02:05 Plt Count Sodium Chloride BUN Glucose POC Glucose 429 H* Direct Bilirubin Alkaline Phosphatase - Diagnostic Test Radiology reviewed: Image reviewed, Reports reviewed - CTA shows no pulmonary emboli. There is unknown pulmonary nodule - EKG Interpretation by Me Rate: Tachycardia Rhythm: NSR - EKG shows sinus tachycardia with a ventricular rate of 104, no acute ST-T wave changes Critical Care Note - Critical Care Note Total time excluding time spent on procedures (mins): 60 Discharge - Discharge Clinical Impression: Chest pain, Hyperglycemia Condition: Stable Disposition: ADMITTED OBSERVATION Admitting Provider: Hospitalist - Dr. Nicole Unit Admitted: Telemetry
[2017-06-21] MEDS ORDERED: ASPIRIN 81 MG TABLET, CHEWABLE PO ONE (21:24)
[2017-06-21] MEDS ORDERED: MORPHINE SULFATE 10 MG/ML INJ IV ONE (21:25)
[2017-06-21] MEDS ORDERED: NORMAL SALINE 1000 ML 1,000 ML IV PRN ×2 (21:25→22:24)
[2017-06-21] MEDS ORDERED: ONDANSETRON HCL INJ/PF 4 MG/2 ML SDV IV ONE (21:25)
[2017-06-21 21:35] LABS: ABSOLUTE EOSINOPHILS # (AUTO) 0.1 10^3/uL (0.0-0.6); ABSOLUTE LYMPHOCYTES (AUTO) 2.6 10^3/uL (0.5-4.7); ABSOLUTE MONOCYTES (AUTO) 0.9 10^3/uL (0.1-1.4); ABSOLUTE NEUT (AUTO) 5.1 10^3/uL (1.7-8.2); BASOPHILS % (AUTO) 0.5 % (0-2); EOSINOPHILS % (AUTO) 1.5 % (0-6); HEMOGLOBIN 16.3 g/dL (13.5-17.0); HGB HCT DIFFERENCE 1.9; LYMPHOCYTES % (AUTO) 29.9 % (13-45); MEAN CORPUSCULAR HEMOGLOBIN 33.3 pg (27.0-33.4); MEAN CORPUSCULAR HGB CONC 34.7 g/dL (32.0-36.0); MEAN CORPUSCULAR VOLUME 96 fl (80-97); MONOCYTES % (AUTO) 10.4 % (3-13); RED BLOOD COUNT 4.91 10^6/uL (4.35-5.55); RED CELL DISTRIBUTION WIDTH 13.2 % (11.5-14.0); SEGMENTED NEUTROPHILS % (AUTO) 57.7 % (42-78); WHITE BLOOD COUNT 8.8 10^3/uL (4.0-10.5)
[2017-06-21 21:55] LABS: ALANINE AMINOTRANSFERASE 60 U/L (21-72); ALBUMIN 4.5 g/dL (3.5-5.0); ALKALINE PHOSPHATASE 133 U/L (38-126); ANION GAP 15 (5-19); ASPARTATE AMINO TRANSFERASE 44 U/L (17-59); BILIRUBIN,DIRECT 0.6 mg/dL (0.0-0.4); BILIRUBIN,TOTAL 0.9 mg/dL (0.2-1.3); BLOOD UREA NITROGEN 26 mg/dL (7-20); CALCIUM 10.2 mg/dL (8.4-10.2); CARBON DIOXIDE 23 mmol/L (22-30); CHLORIDE 91 mmol/L (98-107); CREATINE KINASE 127 U/L (55-170); CREATININE RESULT 1.08 mg/dL (0.52-1.25); POTASSIUM 4.8 mmol/L (3.6-5.0); SODIUM 128.7 mmol/L (137-145); TOTAL PROTEIN 7.6 g/dL (6.3-8.2)
[2017-06-21 22:06] LABS: GLUCOSE 638 mg/dL (75-110)
[2017-06-21 22:07] LABS: CREATINE KINASE MB 1.41 ng/mL (<4.55)
--- NOTE | 2017-06-21 22:07 | EKG REPORT ---
SEVERITY:- BORDERLINE ECG - SINUS TACHYCARDIA BORDERLINE T ABNORMALITIES, INFERIOR LEADS : Confirmed by: Main Bartholomew 21-Jun-2017 22:06:48
[2017-06-21 22:10] LABS: TROPONIN I < 0.012 ng/mL
--- NOTE | 2017-06-21 22:17 | RADIOLOGY REPORT (SQ) ---
EXAM DESCRIPTION: CHEST SINGLE VIEW COMPLETED DATE/TIME: 06/21/2017 9:40 pm REASON FOR STUDY: cp COMPARISON: 05/28/2017 EXAM PARAMETERS: NUMBER OF VIEWS: One view. TECHNIQUE: Single frontal radiographic view of the chest acquired. RADIATION DOSE: NA LIMITATIONS: None. FINDINGS: LUNGS AND PLEURA: Similar nodular density in the right midlung. No acute opacities, calvin s or pneumothorax. No pleural effusion. MEDIASTINUM AND HILAR STRUCTURES: Stable. HEART AND VASCULAR STRUCTURES: Stable. BONES: No acute findings. HARDWARE: None in the chest. OTHER: No other significant finding. IMPRESSION: NO ACUTE RADIOGRAPHIC FINDING IN THE CHEST. TECHNICAL DOCUMENTATION: JOB ID: [id number]
[2017-06-21] MEDS ORDERED: INSULIN REG, HUMAN 100 UNIT/ML 3 ML VIAL (PYX) IV ONE (22:24)
[2017-06-21] MEDS ORDERED: DIPHENHYDRAMINE HCL 50 MG/ML VIAL IV ONE (22:34)
[2017-06-21] MEDS ORDERED: METOCLOPRAMIDE HCL INJ/PF 10 MG/2 ML SDV IV ONE (22:34)
[2017-06-21] MEDS ORDERED: METHYLPREDNISOLONE INJ 40 MG/1 ML SDV IV ONE (22:42)
[2017-06-21] MEDS ORDERED: FAMOTIDINE INJ/PF 20 MG/2 ML SDV IV ONE (22:42)
--- NOTE | 2017-06-21 23:40 | RADIOLOGY REPORT (SQ) ---
EXAM DESCRIPTION: CTA CHEST COMPLETED DATE/TIME: 06/21/2017 11:10 pm REASON FOR STUDY: chest pain COMPARISON: A 05/28/2017 TECHNIQUE: CT scan of the chest performed using helical scanning technique with dynamic intravenous contrast injection. Images reviewed with lung, soft tissue and bone windows. Reconstructed coronal and sagittal MPR images reviewed. Additional 3 dimensional post-processing performed to develop Maximal Intensity Projection images ([place] P). All images stored on PACS. All CT scanners at this facility use dose modulation, iterative reconstruction, and/or weight based d osing when appropriate to reduce radiation dose to as low as reasonably achievable (ALARA). [facility]: Dose Right [facility]: CareDose [facility]: Dose Right [facility]: Teradose 4D [facility]: VenX Medical CONTRAST TYPE AND DOSE: contrast/concentration: Isovue 370.00 mg/ml; Total Contrast Delivered: 82.0 ml; Total Saline Delivered: 110.0 ml RENAL FUNCTION: GFR > 60. RADIATION DOSE: Up-to-date CT equipment and radiation dose reduction techniques were employed. CTDIv ol: 16.5 - 33.8 mGy. DLP: 1150 mGy-cm. . LIMITATIONS: None. FINDINGS: LUNGS AND PLEURA: Similar nodularity in the inferior aspect of the right upper lobe. No p neumothorax. No consolidation or pleural effusions. AORTA AND GREAT VESSELS: No aneurysm or dissection. HEART: No pericardial effusion. PULMONARY ARTERIES: No emboli visualized in the main pulmonary arteries or the segmental branches. HILAR AND MEDIASTINAL STRUCTURES: No identified masses or abnormal nodes. HARDWARE: None in the chest. UPPER ABDOMEN: No significant findings. Limited exam. THYROID AND OTHER SOFT TISSUES: No masses. No adenopathy. BONES: No acute or significant finding. 3D MIPS: Confirm above findings. OTHER: No other significant finding. IMPRESSION: Similar nodularity in the inferior aspect of the right upper lobe. No pneumothorax. No consolidation or pleural effusions.. NO PULMONARY EMBOLI. TECHNICAL DOCUMENTATION: JOB ID: [id number] Quality ID # [id number]: Final reports with documentation of one or more dose reduction techniques (e.g., Au tomated exposure control, adjustment of the mA and/or kV according to patient size, use of iterative reconstruction technique) 2010 [employer]- All Rights Reserved
[2017-06-22] MEDS ORDERED: MORPHINE SULFATE 10 MG/ML INJ IV ONE (00:23)
[2017-06-22] MEDS ORDERED: INSULIN REG, HUMAN 100 UNIT/ML 3 ML VIAL (PYX) IV ONE ×2 (00:41→02:08)
[2017-06-22 02:43] LABS: ADD ON TESTING BLD IN LAB ACKNOWLEDGE
[2017-06-22 02:50] LABS: MAGNESIUM 1.8 mg/dL (1.6-2.3)
[2017-06-22 02:51] LABS: ALCOHOL < 10 mg/dL (NONE DETECTED)
[2017-06-22 03:21] LABS: URINE BARBITURATES SCREEN NEGATIVE; URINE METHADONE SCREEN NEGATIVE; URINE OPIATES LOW UNCONFIRMED POSITIVE; URINE PHENCYCLIDINE SCREEN NEGATIVE
[2017-06-22] MEDS ORDERED: DEXTROSE 50%-WATER 25 GM/50 ML DISP.SYRIN IV PRN ×2 (03:53)
[2017-06-22] MEDS ORDERED: INSULIN LISPRO 100 UNIT/ML 3 ML VIAL SUBCUT PRN (03:53)
[2017-06-22] MEDS ORDERED: DEXTROSE 40% GEL 15 GM TUBE PO PRN ×2 (03:53)
[2017-06-22] MEDS ORDERED: GLUCAGON,HUMAN RECOMB 1 MG INJ IM PRN (03:53)
[2017-06-22] MEDS ORDERED: MAG HYDROX/AL HYDROX/SIMETH SUSP 30 ML UDCUP PO PRN (03:56)
[2017-06-22] MEDS ORDERED: PROMETHAZINE HCL 25 MG TABLET PO PRN (04:04)
[2017-06-22] MEDS ORDERED: ACETAMINOPHEN 325 MG TABLET PO PRN ×2 (04:04→04:30)
[2017-06-22] MEDS ORDERED: INSULIN LISPRO 100 UNIT/ML 3 ML VIAL SUBCUT ONE ×2 (04:15→07:46)
[2017-06-22] MEDS ORDERED: NICOTINE 7 MG/24 HR PATCH.TD24 TD PRN (04:17)
--- NOTE | 2017-06-22 04:17 | PDOC H&P ---
History of Present Illness Admission Date/PCP: 06/22/17 02:54 [facility] Patient complains of: chest pain History of Present Illness: JERI TAYLOR is a 47 year old obese male, with underlying type 2 diabetes mellitus, along with a personal history of both DVT and pulmonary emboli 12 years ago, with Coumadin stopped 5 years ago by his physician, who presents to the emergency room for evaluation of above complaint. Intermittent Right upper anterior chest wall pain since May 28. Increases with deep breathing and certain movements. States he initially thought the pain may be coming from a right upper lobe nodule noted on recent x-ray, with patient to be scheduled for an appointment with subspecialist for planned biopsy of the nodule. The evening of the , pain persisted and somewhat worsened while sitting in his recliner as he was eating his evening meal. Decided to come to the emergency room for further evaluation of same. Associated nausea, shortness of breath along with mild sweating. No vomiting. Questionable myocardial infarction 12 years ago, with subsequent workup revealing pulmonary emboli. No specific cardiac workup in terms of stress test or catheterization. Negative family history of coronary artery disease. Patient has been discussed with emergency room physician who evaluated the patient. Currently resting quietly, with only mild right upper anterior chest discomfort. Has not had a functioning glucometer for at least 3 weeks. States he is compliant with his medications otherwise. Dictation via voice recognition software. Laboratory results are listed in [email or web address] and are reviewed. X-ray summary results are listed below, with full report(s) reviewed. . EKG reviewed and compared to prior tracing from May 30 of this year. Social history/personal habits: . Adult son. On disability, due to bipolar disorder. Dips snuff. History ETOH abuse in his 20's; last intake 2-3 weeks ago. No illicit drug use. Allergies/adverse reactions are listed in [email or web address] and are reviewed. Home medications initially autopopulated into [facility] may not accurately reflect patient's true medications, dosages, and/or frequencies. vending technician to reconcile medications. Unfortunately, patient not certain of all medications/dosages/frequencies. REVIEW OF SYSTEMS: Constitutional: No fever or chills. Eyes: Wears glasses. ENT: No swallowing problems or complaints. Denies hearing loss. Pulmonary: See history and present illness. Cardiovascular: See history and present illness. Gastrointestinal: See history and present illness. Skin: No current complaints, including rashes. Hematologic: Easy bruising. Neurologic: No current complaints, including numbness or tingling. Musculoskeletal: Chronic back pain. Psychiatric: Anxiety and depression. Denies suicidal or homicidal ideation. Endocrine: No current complaints, including polyuria. Genitourinary: No current complaints, including dysuria. PHYSICAL EXAMINATION: 5 feet 10 inches tall. 116.4 kg. BMI 36.8 kg/m. Blood pressure 127/80. Pulse 101 and regular. 96% saturation on room air. Respirations are 18 and unlabored. Temperature 97.7. Obese slightly disheveled somewhat chronically ill-appearing male who appears approximately his stated age. Pleasant awake alert cooperative. Rather anxious gentleman at times, although no miguel ángel agitation. Emergency room nurse Little present. Skin is warm and dry. No grossly obvious evidence of rash in areas of skin examined. No subcutaneous nodules palpated. ENT: Hearing grossly normal to normal conversation. Tongue midline on protrusion pink and slightly tacky. Eyes: No scleral icterus. Pupils equal and reactive to light at 4 mm. [place] conjunctivae. Neck is supple and nontender to gentle active range of motion and palpation. Midline trachea. No palpable thyroid nodule mass enlargement or tenderness. Lymphatic: No palpable cervical or clavicular nodes. Neck and lymphatic exams limited by patient body habitus. Psychiatric: Fair to reasonable insight into acute and chronic medical issues. Oriented to time location and why here. Lungs: Auscultation reveals clear and equal breath sounds bilaterally. No use of accessory respiratory muscles. Cardiovascular: Heart regular rate and rhythm, without gallop murmur or rub. No carotid or abdominal aortic bruits. No ankle or pedal edema. Palpable dorsalis pedis pulses. Abdomen:soft somewhat obese nontender with positive bowel sounds. Unable to adequately evaluate abdomen for masses or organomegaly due to body habitus. Compression of his upper abdomen does not reproduce his previously noted chest discomfort. However, compression of his upper right anterior chest wall easily reproduces his prior chest pain. Extremities: Feet are warm and dry. No calf tenderness to compression. No grossly obvious visual evidence of calf swelling. Gentle manipulation of lower extremities fails to reveal any obvious evidence of injury or instability to knees hips or ankles. Neurologic: Moves upper extremities grossly normally. Patellar reflexes absent. Absent Babinski. Light touch is intact at feet. Dorsiflexion and plantarflexion of feet 5 / 5 and symmetric. Past Medical History Cardiac Medical History: Reports: DVT, Myocardial Infarction - States workup revealed pulmonary embolus., Hyperlipidema, Hypertension, Pulmonary Embolism Denies: Atrial Fibrillation, Congestive Heart Failure, Coronary Artery Disease Pulmonary Medical History: Reports: Bronchitis, Sleep Apnea - Noncompliant with uncomfortable mask. Denies: Asthma, Chronic Obstructive Pulmonary Disease (COPD) EENT Medical History: Reports: Eyes - Glasses Denies: Ears, Throat Neurological Medical History: Denies: Hemorrhagic CVA, Ischemic CVA, Seizures Endocrine Medical History: Reports: Diabetes Mellitus Type 2 Denies: Hyperthyroidism, Hypothyroidism Renal/ Medical History: Reports: None GI Medical History: Reports: Gastroesophageal Reflux Disease, Other - History of esophageal ulcers; fatty liver. Denies: Cirrhosis, Hepatitis Musculoskeltal Medical History: Reports: Arthritis Skin Medical History: Reports: None Psychiatric Medical History: Reports: Alcohol Dependency, Bipolar Disorder, Depression - personality disorder, anxiety, General Anxiety Disorder, Tobacco Dependency, Other - Dips snuff. Distant history of heavy alcohol use; none 3 weeks. Hematology: Reports: Other - Easy bruising Infectious Medical History: Denies: Hepatitis B, Hepatitis C Past Surgical History Past Surgical History: Reports: Cholecystectomy, Orthopedic Surgery Social History Information Source: Patient, Emergency Med Personnel, [facility] Records Smoking Status: Never Smoker - Dips snuff. Frequency of Alcohol Use: Rare - Alcohol abuse in his 20s. Drugs: None - Advance Directive Resuscitation Status: Full Code Surrogate healthcare decision maker:: Girlfriend Emilia Deras Family History Family History: Reviewed & Not Pertinent Parental Family History Reviewed: Yes - Mother is alive with coronary artery disease. Father of an [place]. Children Family History Reviewed: Yes - Healthy Sibling(s) Family History Reviewed.: Yes - Half brother is healthy. Medication/Allergy Home Medications: Quetiapine Fumarate [Seroquel] 400 mg PO QHS 06/27/17 RX: Duloxetine HCl 90 mg PO DAILY 06/27/17 RX: Esomeprazole Mag Trihydrate [Nexium] 40 mg PO DAILY 06/27/17 RX: Fenofibrate Nanocrystallized [Fenofibrate] 145 mg PO DAILY 06/27/17 RX: Insulin Glargine,Hum.rec.anlog [Lantus Solostar] 40 unit SQ QHS 06/27/17 RX: Naproxen 500 mg PO Q12HP PRN 06/27/17 RX: Prazosin HCl [Minipress] 3 mg PO QHS 06/27/17 RX: Sitagliptin Phos/Metformin HCl [Janumet Xr 100-1,000 mg Tablet] 1 tab PO DAILY 06/27/17 RX: Oxycodone HCl/Acetaminophen [Percocet 5-325 mg Tablet] 1 tab PO Q4HP PRN # 10 tablet 06/29/17 Allergies/Adverse Reactions: Iodinated Contrast- Oral and IV Dye Allergy (Unknown, Verified 06/22/17 09:48) IV dye Allergy (Uncoded 03/11/17 02:11) Physical Exam Vital Signs: Temp Pulse Resp BP Pulse Ox 97.7 F 103 H 18 139/86 H 95 06/22/17 03:44 06/22/17 03:44 06/22/17 03:44 06/22/17 03:44 06/22/17 03:44 Intake & Output 06/21/17 06/22/17 06/23/17 00:59 00:59 00:59 Weight 116.4 kg Results Impressions: Chest X-Ray 06/21/17 21:24 IMPRESSION: NO ACUTE RADIOGRAPHIC FINDING IN THE CHEST. Chest/Abdomen CTA 06/21/17 22:25 IMPRESSION: Similar nodularity in the inferior aspect of the right upper lobe. No pneumothorax. No consolidation or pleural effusions.. NO PULMONARY EMBOLI. 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 Accu-Cheks with appropriate sliding scale coverage. Resume home medications as appropriate once these have been determined and reviewed. Dietary consult. Hemoglobin A1c. (2) Precordial chest pain Is this a current diagnosis for this admission?: Yes Plan: Likely this is simply musculoskeletal in origin,, however Patient will be placed in observation bed under chest pain protocol. Patient understands to notify staff should chest pain change in character or location. Serial troponin . Repeat EKG. lipid panel. I have strongly encouraged patient to be careful getting out of bed, to avoid a fall with injury. Knee high SCDs for DVT prophylaxis, along with subcu Lovenox.. Impression and plans were discussed with patient, who concurs Time spent in evaluation and management of patient: 73 minutes. (3) Bipolar disorder Qualifiers: Active/Remission status: remission status unspecified Qualified Code(s): F31.9 - Bipolar disorder, unspecified Is this a current diagnosis for this admission?: Yes Plan: Resume home medications as appropriate once these have been determined and reviewed. (4) History of DVT (deep vein thrombosis) Is this a current diagnosis for this admission?: Yes (5) History of pulmonary embolism Is this a current diagnosis for this admission?: Yes (6) Noncompliance Is this a current diagnosis for this admission?: Yes (7) SHENA (obstructive sleep apnea) Is this a current diagnosis for this admission?: Yes Plan: CPAP nightly, although patient not compliant with device at home due to mask discomfort. (8) Tobacco dependency Is this a current diagnosis for this admission?: Yes Plan: As needed nicotine patch. (9) Nodule of right lung Is this a current diagnosis for this admission?: Yes Plan: Primary care provider to schedule subspecialty appointment for biopsy of nodule , per patient. - Time Time Spent: Greater than 70 Minutes Anticipated discharge: Home Within: within 48 hours
[2017-06-22 07:52] LABS: ANION GAP 15 (5-19); BLOOD UREA NITROGEN 28 mg/dL (7-20); CALCIUM 9.7 mg/dL (8.4-10.2); CARBON DIOXIDE 25 mmol/L (22-30); CHLORIDE 99 mmol/L (98-107); CHOLESTEROL 183.48 mg/dL (0-200); CREATININE RESULT 0.98 mg/dL (0.52-1.25); Direct HDL 39 mg/dL (>40); POTASSIUM 4.9 mmol/L (3.6-5.0); SODIUM 138.5 mmol/L (137-145); TRIGLYCERIDES 355 mg/dL (<150)
[2017-06-22 08:03] LABS: DIRECT LDL 91 mg/dL (<100)
[2017-06-22 08:07] LABS: GLUCOSE 426 mg/dL (75-110)
[2017-06-22] MEDS ORDERED: (PENDING PHARMACY ID) (Esomeprazole Mag Trihydrate [Nexium] 40 MG) PO SCH (10:00)
[2017-06-22] MEDS ORDERED: DOCUSATE SODIUM 100 MG CAPSULE PO SCH (10:00)
[2017-06-22] MEDS ORDERED: ENOXAPARIN SODIUM INJ 40 MG/0.4 ML DISP.SYRIN SUBCUT SCH (10:00)
[2017-06-22] MEDS ORDERED: FENOFIBRATE NANOCRYSTALLIZED 145 MG TABLET PO SCH (10:00)
[2017-06-22] MEDS ORDERED: DULOXETINE HCL 30 MG CAPSULE.DR PO SCH (10:00)
[2017-06-22] MEDS ORDERED: (PENDING PHARMACY ID) (Lisinopril [Prinivil 2.5 Mg Tablet] 2.5 MG) PO SCH (10:00)
[2017-06-22] MEDS ORDERED: (PENDING PHARMACY ID) (Sitagliptin Phos/Metformin Hcl [Janumet 50-500 Mg Tablet] 1 TAB) PO SCH (10:00)
[2017-06-22] MEDS ORDERED: ASPIRIN 81 MG TABLET, ENT COATED PO SCH (10:00)
[2017-06-22] MEDS ORDERED: LISINOPRIL 5 MG TABLET PO SCH (11:00)
[2017-06-22 11:21] VITALS: BP 123/85
[2017-06-22] MEDS ORDERED: SUCRALFATE 1 GM TABLET PO SCH ×2 (12:00)
--- NOTE | 2017-06-22 12:44 | PDOC DISCHARGE SUMMARY ---
General - Admit/Disc Date/PCP Admission Date/Primary Care Provider: 06/22/17 03:56 Discharge Date: 06/22/17 - Additional Information Resuscitation Status: Full Code Discharge Diet: Diabetic Discharge Activity: Activity As Tolerated Home Medications: Acetaminophen [Tylenol 325 mg Tablet] 650 mg PO Q8HP PRN tablet 06/22/17 Duloxetine HCl 90 mg PO DAILY 06/22/17 Esomeprazole Mag Trihydrate [Nexium] 40 mg PO DAILY 06/22/17 Fenofibrate Nanocrystallized [Fenofibrate] 145 mg PO DAILY 06/22/17 Insulin Glargine,Hum.rec.anlog [Lantus Insulin 100 Unit/mL] 40 unit SUBCUT QHS # 3 insuln.pen 06/22/17 Insulin Glargine,Hum.rec.anlog [Lantus] 40 units SQ QHS 06/22/17 Lisinopril [Prinivil 2.5 mg Tablet] 2.5 mg PO DAILY 06/22/17 Naproxen 500 mg PO BIDP PRN #30 tablet 06/22/17 Prazosin HCl 3 mg PO QHS 06/22/17 Quetiapine Fumarate [Seroquel] 400 mg PO QHS 06/22/17 Simvastatin [Zocor 20 mg Tablet] 20 mg PO QHS 06/22/17 Sitagliptin Phos/Metformin HCl [Janumet 50-500 mg Tablet] 1 tab PO Q12 #60 tablet 06/22/17 Sucralfate [Carafate 1 gm Tablet] 1 tab PO Q6 06/22/17 History of Present Illness Patient complains of: Right chest pain, likely musculoskeletal in origin History of Present Illness: JERI TAYLOR is a 47 year old male Hospital Course Hospital Course: Patient was admitted to the telemetry floor on observation. He had serial troponins x 3, which were all negative. CTA of the chest showed right indeterminate pulmonary nodule, otherwise unremarkable. His pain has been on and off on the right chest wall for the last 2 months he reports. It does increase with palpation. He had no further pain. He has been noncompliant with medical follow up. Physical Exam Vital Signs: Temp Pulse Resp BP Pulse Ox 97.6 F 87 16 123/85 99 06/22/17 11:50 06/22/17 11:50 06/22/17 11:50 06/22/17 11:50 06/22/17 11:50 Intake & Output 06/21/17 06/22/17 06/23/17 06:59 06:59 06:59 Intake Total 5 Output Total 275 350 Balance -270 -350 General appearance: PRESENT: no acute distress, obese, well-developed, well- nourished Head exam: PRESENT: atraumatic, normocephalic Eye exam: PRESENT: conjunctiva pink, EOMI, PERRLA. ABSENT: scleral icterus Ear exam: PRESENT: normal external ear exam Mouth exam: PRESENT: moist, tongue midline Neck exam: ABSENT: carotid bruit, JVD, lymphadenopathy, thyromegaly Respiratory exam: PRESENT: clear to auscultation rosy. ABSENT: rales, rhonchi, wheezes Cardiovascular exam: PRESENT: RRR, +S1, +S2 Pulses: PRESENT: normal dorsalis pedis pul Vascular exam: PRESENT: normal capillary refill GI/Abdominal exam: PRESENT: normal bowel sounds, soft. ABSENT: distended, guarding, mass, organolmegaly, rebound, tenderness Rectal exam: PRESENT: deferred Musculoskeletal exam: PRESENT: ambulatory, tenderness - right anterior chest wall tenderness Neurological exam: PRESENT: alert, awake, oriented to person, oriented to place , oriented to time, oriented to situation, CN II-XII grossly intact. ABSENT: motor sensory deficit Psychiatric exam: PRESENT: appropriate affect, normal mood. ABSENT: homicidal ideation, suicidal ideation Skin exam: PRESENT: dry, intact, warm. ABSENT: cyanosis, rash Results Laboratory Results: 06/22/17 07:12 06/22/17 07:12 Sodium 138.5 Potassium 4.9 Chloride 99 Carbon Dioxide 25 Anion Gap 15 BUN 28 H Creatinine 0.98 Est GFR ( Amer) > 60 Est GFR (Non-Af Amer) > 60 Glucose 426 H* Calcium 9.7 Triglycerides 355 H Cholesterol 183.48 LDL Cholesterol Direct 91 VLDL Cholesterol 71.0 H HDL Cholesterol 39 L 06/22/17 07:12 Troponin I < 0.012 Impressions: Chest X-Ray 06/21/17 21:24 IMPRESSION: NO ACUTE RADIOGRAPHIC FINDING IN THE CHEST. Chest/Abdomen CTA 06/21/17 22:25 IMPRESSION: Similar nodularity in the inferior aspect of the right upper lobe. No pneumothorax. No consolidation or pleural effusions.. NO PULMONARY EMBOLI. Qualifiers PATEINT BEING DISCHARGED WITH ANY OF THE FOLLOWING DIAGNOSIS?: No Plan Discharge Plan: Home with follow up with PCP and pulmonary Time Spent: Less than 30 Minutes
[2017-06-22] MEDS ORDERED: PRAZOSIN HCL 3 MG PO SCH (22:00)
[2017-06-22] MEDS ORDERED: SIMVASTATIN 10 MG TABLET PO SCH (22:00)
[2017-06-22] MEDS ORDERED: INSULIN GLARGINE,HUM.REC.ANLOG 300 UNIT/3 ML INSULN.PEN SUBCUT SCH (22:00)
[2017-06-22] MEDS ORDERED: INSULIN GLARGINE,HUM.REC.ANLOG 1,000 UNIT/10 ML UNIT SUBCUT SCH (22:00)
[2017-06-22] MEDS ORDERED: SITAGLIPTIN PHOSPHATE 50 MG TABLET PO SCH (22:00)
[2017-06-22] MEDS ORDERED: METFORMIN HCL 500 MG TABLET PO SCH (22:00)
--- NOTE | 2017-06-22 23:23 | EKG REPORT ---
SEVERITY:- NORMAL ECG - SINUS RHYTHM : Confirmed by: Main Bartholomew 22-Jun-2017 23:22:29
[2017-06-23] MEDS ORDERED: LANSOPRAZOLE 30 MG TAB.RAP.DR PO SCH (08:00)
== END 2017-06-22 13:34 | disposition home or self-care (01) ==
LOC: ER 20:50 → EH 06-22 02:54 → UNDOADMOB 06-22 02:54 → 5 06-22 03:43 → EH 06-22 03:43 → 5 06-22 03:56 → EH 06-22 03:56
PROVIDERS: ADMIT Family Medicine; ATTEND Family Medicine
DX: R07.89 Other chest pain (principal); R91.1 Solitary pulmonary nodule; Z91.19 Patient's noncompliance with other medical treatment and regimen; E66.9 Obesity, unspecified; E11.8 Type 2 diabetes mellitus with unspecified complications; E11.65 Type 2 diabetes mellitus with hyperglycemia; F31.9 Bipolar disorder, unspecified; F41.9 Anxiety disorder, unspecified; G89.29 Other chronic pain; M54.9 Dorsalgia, unspecified; G47.33 Obstructive sleep apnea (adult) (pediatric); I25.2 Old myocardial infarction; F17.229 Nicotine dependence, chewing tobacco, with unspecified nicotine-induced disorders; Z79.899 Other long term (current) drug therapy; Z79.4 Long term (current) use of insulin; Z86.718 Personal history of other venous thrombosis and embolism; Z86.711 Personal history of pulmonary embolism; Z82.49 Family history of ischemic heart disease and other diseases of the circulatory system; Z87.19 Personal history of other diseases of the digestive system; Z68.36 Body mass index [BMI] 36.0-36.9, adult
CPT/HCPCS: 93005 ×3; 96376; 99285 ×2; 96360; 96374; 96375; 36415 ×2; 82553; 82962; 80307 ×2; 82550; 83735; 83930; 85025 ×2; 80048; 80053 ×2; 81001; 84484 ×2; 83036; 82803; 80061; 71010; 71275; 93010 ×2; G0378; A9270 ×12; J1200; J2920; J2765; J2270 ×2; J1650; J2405; J7030; S0028; J1815; J3490

== ENCOUNTER 2017-06-22 20:57 | Emergency (ER) | payer MEDICARE, MEDICAID ==
[2017-06-22] MEDS ORDERED: NORMAL SALINE 1000 ML 1,000 ML IV ONE (20:58)
[2017-06-22 21:20] LABS: ABSOLUTE BASOPHILS # (AUTO) 0.1 10^3/uL (0.0-0.2); ABSOLUTE EOSINOPHILS # (AUTO) 0.1 10^3/uL (0.0-0.6); ABSOLUTE LYMPHOCYTES (AUTO) 2.2 10^3/uL (0.5-4.7); ABSOLUTE NEUT (AUTO) 8.5 10^3/uL (1.7-8.2); EOSINOPHILS % (AUTO) 0.5 % (0-6); HEMATOCRIT 42.1 % (37.9-51.0); HEMOGLOBIN 14.6 g/dL (13.5-17.0); HGB HCT DIFFERENCE 1.7; LYMPHOCYTES % (AUTO) 18.3 % (13-45); MEAN CORPUSCULAR HEMOGLOBIN 33.4 pg (27.0-33.4); MEAN CORPUSCULAR HGB CONC 34.6 g/dL (32.0-36.0); MEAN CORPUSCULAR VOLUME 96 fl (80-97); MONOCYTES % (AUTO) 8.4 % (3-13); RED BLOOD COUNT 4.36 10^6/uL (4.35-5.55); SEGMENTED NEUTROPHILS % (AUTO) 71.8 % (42-78); VENOUS BLOOD BASE EXCESS 1.2 mmol/L; VENOUS BLOOD HCO3 25.3 mmol/L (20-32); VENOUS BLOOD PCO2 38.4 mmHg (35-63); VENOUS BLOOD PH 7.44 (7.30-7.42); WHITE BLOOD COUNT 11.9 10^3/uL (4.0-10.5)
--- NOTE | 2017-06-22 21:35 | ER Document Report ---
ED Blood Sugar Problem - General Chief Complaint: High Blood Sugar Stated Complaint: HIGH BLOOD SUGAR Time Seen by Provider: 06/22/17 21:29 Mode of Arrival: Ambulatory Information source: Patient TRAVEL OUTSIDE OF THE [place] IN LAST 30 DAYS: No - HPI Patient complains to provider of: Elevated blood sugar Onset: Just prior to arrival Onset/Duration: Sudden Quality of pain: No pain Associated symptoms: Frequent urination Recently seen / treated by doctor: Yes Notes: Patient is a 47-year-old male with a history of diabetes as well as other medical problems, who presents to the emergency room for elevated blood sugar, states it was greater than 400 so he took 10 units of Lantus, then he ate a small bowl of cereal, developed some nausea and repeated his blood sugar and it was 579 so he took 20 units of Lantus, and then he called the pharmacist who told him that his prescription states he should take 40 units of Lantus at nighttime, so he called EMS to bring him to the emergency room for evaluation, he does report increased urination but no shortness of breath - Related Data Allergies/Adverse Reactions: Iodinated Contrast- Oral and IV Dye Allergy (Unknown, Verified 06/22/17 09:48) IV dye Allergy (Uncoded 03/11/17 02:11) Past Medical History - General Information source: Patient - Social History Smoking Status: Never Smoker Family History: Reviewed & Not Pertinent - Past Medical History Cardiac Medical History: Reports: Hx DVT, Hx Heart Attack - States workup revealed pulmonary embolus., Hx Hypercholesterolemia, Hx Hypertension, Hx Pulmonary Embolism Denies: Hx Atrial Fibrillation, Hx Congestive Heart Failure, Hx Coronary Artery Disease Pulmonary Medical History: Reports: Hx Bronchitis, Hx Sleep Apnea - Noncompliant with uncomfortable mask. Denies: Hx Asthma, Hx COPD Neurological Medical History: Denies: Hx Seizures Endocrine Medical History: Reports: Hx Diabetes Mellitus Type 2. Denies: Hx Hyperthyroidism, Hx Hypothyroidism Renal/ Medical History: Denies: Hx Peritoneal Dialysis GI Medical History: Reports: Hx Gastroesophageal Reflux Disease. Denies: Hx Cirrhosis, Hx Hepatitis Musculoskeltal Medical History: Reports Hx Arthritis Psychiatric Medical History: Reports: Hx Bipolar Disorder, Hx Depression - personality disorder, anxiety Infectious Medical History: Denies: Hx Hepatitis Past Surgical History: Reports: Hx Cholecystectomy, Hx Orthopedic Surgery - Immunizations Hx Diphtheria, Pertussis, Tetanus Vaccination: No Review of Systems - Review of Systems Constitutional: See HPI EENT: No symptoms reported Cardiovascular: No symptoms reported Respiratory: No symptoms reported Gastrointestinal: Nausea Genitourinary: No symptoms reported Male Genitourinary: No symptoms reported Musculoskeletal: No symptoms reported Skin: No symptoms reported Hematologic/Lymphatic: No symptoms reported Neurological/Psychological: No symptoms reported -: Yes All other systems reviewed and negative Physical Exam - Vital signs Vitals: Resp BP Pulse Ox 32 H 121/79 98 06/22/17 21:04 06/22/17 21:04 06/22/17 21:04 Interpretation: Normal - General General appearance: Appears well, Alert - HEENT Head: Normocephalic, Atraumatic Eyes: Normal Pupils: PERRL - Respiratory Respiratory status: No respiratory distress Chest status: Nontender Breath sounds: Normal Chest palpation: Normal - Cardiovascular Rhythm: Regular Heart sounds: Normal auscultation Murmur: No - Abdominal Inspection: Normal, Obese Distension: No distension Bowel sounds: Normal Tenderness: Nontender Organomegaly: No organomegaly - Back Back: Normal, Nontender - Extremities General upper extremity: Normal inspection, Nontender, Normal color, Normal ROM , Normal temperature General lower extremity: Normal inspection, Nontender, Normal color, Normal ROM , Normal temperature, Normal weight bearing. No: Estevan's sign - Neurological Neuro grossly intact: Yes Cognition: Normal Orientation: AAOx4 Allison Coma Scale Eye Opening: Spontaneous Allison Coma Scale Verbal: Oriented Jose A Coma Scale Motor: Obeys Commands Jose A Coma Scale Total: 15 Speech: Normal Motor strength normal: LUE, RUE, LLE, RLE Sensory: Normal - Psychological Associated symptoms: Normal affect, Normal mood - Skin Skin Temperature: Warm Skin Moisture: Dry Skin Color: Normal Course - Re-evaluation Re-evalutation: 06/22/17 22:31 patient discussed with hospitalist who recommends he receive IV fluids and insulin and have a repeat sugar, likely can be discharged home 06/23/17 01:08 Patient's repeat sugars 353, he is resting comfortably, labs are otherwise normal with no signs of DKA, therefore he was discharged home with instructions to take his medications as prescribed and follow-up with the primary care provider, patient acknowledges understanding and agreement with this plan - Vital Signs Vital signs: Temp Pulse Resp BP Pulse Ox 15 107/72 94 06/23/17 00:01 06/22/17 22:30 06/23/17 00:01 - Laboratory Result Diagrams: 06/22/17 21:09 06/22/17 21:09 Laboratory results interpreted by me: 06/22/17 06/22/17 06/22/17 21:09 21:09 21:09 WBC 11.9 H Plt Count 135 L Absolute Neutrophils 8.5 H VBG pH 7.44 H Sodium 131.7 L Chloride 94 L BUN 32 H Glucose 513 H* Serum Osmolality Direct Bilirubin 0.5 H Urine Glucose (UA) 06/22/17 06/22/17 21:09 22:58 WBC Plt Count Absolute Neutrophils VBG pH Sodium Chloride BUN Glucose Serum Osmolality 607 H Direct Bilirubin Urine Glucose (UA) >=500 H Discharge - Discharge Clinical Impression: Hyperglycemia Condition: Stable Disposition: HOME, SELF-CARE Instructions: Hyperglycemia ([facility]) Additional Instructions: Use your insulin and medications as prescribed. Follow-up with your primary care provider in 1-2 days. Return if symptoms worsen.
[2017-06-22 21:38] LABS: ALANINE AMINOTRANSFERASE 46 U/L (21-72); ALKALINE PHOSPHATASE 114 U/L (38-126); ANION GAP 13 (5-19); ASPARTATE AMINO TRANSFERASE 37 U/L (17-59); BILIRUBIN,DIRECT 0.5 mg/dL (0.0-0.4); BILIRUBIN,TOTAL 0.6 mg/dL (0.2-1.3); BLOOD UREA NITROGEN 32 mg/dL (7-20); CALCIUM 9.2 mg/dL (8.4-10.2); CARBON DIOXIDE 25 mmol/L (22-30); CHLORIDE 94 mmol/L (98-107); CREATININE RESULT 1.02 mg/dL (0.52-1.25); SODIUM 131.7 mmol/L (137-145)
[2017-06-22 21:49] LABS: GLUCOSE 513 mg/dL (75-110)
[2017-06-22] MEDS ORDERED: NORMAL SALINE 1000 ML 1,000 ML IV PRN (21:51)
[2017-06-22] MEDS ORDERED: INSULIN REG, HUMAN 100 UNIT/ML 3 ML VIAL (PYX) IV ONE (22:04)
[2017-06-22] MEDS ORDERED: OXYCODONE-ACETAMINOPHEN 5-325 MG TABLET PO ONE (23:11)
[2017-06-22 23:14] LABS: APPEARANCE,URINE CLEAR; BILIRUBIN,URINE NEGATIVE (NEGATIVE); GLUCOSE, URINE >=500 mg/dL (NEGATIVE); KETONES,URINE NEGATIVE (NEGATIVE); LEUKOCYTE ESTERASE,URINE NEGATIVE (NEGATIVE); NITRITE,URINE NEGATIVE (NEGATIVE); PROTEIN,URINE NEGATIVE (NEGATIVE); UROBILINOGEN,URINE NEGATIVE mg/dL (<2.0)
--- NOTE | 2017-06-22 23:22 | EKG REPORT ---
SEVERITY:- BORDERLINE ECG - SINUS TACHYCARDIA BORDERLINE T ABNORMALITIES, INFERIOR LEADS : Confirmed by: Main Bartholomew 22-Jun-2017 23:22:15
[2017-06-23 02:32] VITALS: BP 102/56
== END 2017-06-23 02:32 | disposition home or self-care (01) ==
LOC: ER 20:57
DX: E11.65 Type 2 diabetes mellitus with hyperglycemia (principal); Z79.4 Long term (current) use of insulin; I10 Essential (primary) hypertension; Z91.041 Radiographic dye allergy status
CPT/HCPCS: 93005; 99285; 96360; 36415; 82962; 83930; 85025; 80053; 81001; 82803; 93010; A9270 ×2; J7030; J1815

== ENCOUNTER 2017-06-27 00:13 | Inpatient (IN) | payer MEDICARE, MEDICAID ==
[2017-06-27] MEDS ORDERED: ONDANSETRON HCL INJ/PF 4 MG/2 ML SDV IV ONE (00:52)
[2017-06-27] MEDS ORDERED: NORMAL SALINE 1000 ML 1,000 ML IV ONE (00:52)
[2017-06-27] MEDS ORDERED: KETOROLAC TROMETHAMINE INJ/PF 30 MG/1 ML SDV IV ONE (01:03)
--- NOTE | 2017-06-27 01:14 | ER Document Report ---
ED General - General Chief Complaint: Abdominal Pain Stated Complaint: ABDOMINAL PAIN Time Seen by Provider: 06/27/17 00:49 Notes: Patient is a 47-year-old male with past medical history of poorly controlled type 2 diabetes with insulin dependence, multiple prior pulmonary emboli, bipolar disorder, ongoing tobacco abuse who presents with acute onset of epigastric abdominal pain approximately 4 hours prior to arrival. States shortly after eating pizza he developed a dull, constant, stabbing pain to the upper abdomen. Nothing improves or worsen the pain. It was associated with multiple episodes of nonbilious vomiting as well as 2 episodes of nonbloody diarrhea. He states this feels similar to when he had pancreatitis in the past and has required admission for this repeatedly in the past. His gallbladder was resected in 1997. He denies any fever or constitutional symptoms. No chest pain or shortness of breath. TRAVEL OUTSIDE OF THE [place] IN LAST 30 DAYS: No - Related Data Allergies/Adverse Reactions: Iodinated Contrast- Oral and IV Dye Allergy (Unknown, Verified 06/22/17 09:48) IV dye Allergy (Uncoded 03/11/17 02:11) Past Medical History - General Information source: Patient - Social History Smoking Status: Current Every Day Smoker Frequency of alcohol use: None Drug Abuse: None Lives with: Spouse/Significant other Family History: Reviewed & Not Pertinent - Past Medical History Cardiac Medical History: Reports: Hx DVT, Hx Heart Attack - States workup revealed pulmonary embolus., Hx Hypercholesterolemia, Hx Hypertension, Hx Pulmonary Embolism Denies: Hx Atrial Fibrillation, Hx Congestive Heart Failure, Hx Coronary Artery Disease Pulmonary Medical History: Reports: Hx Bronchitis, Hx Sleep Apnea - Noncompliant with uncomfortable mask. Denies: Hx Asthma, Hx COPD Neurological Medical History: Denies: Hx Seizures Endocrine Medical History: Reports: Hx Diabetes Mellitus Type 2. Denies: Hx Hyperthyroidism, Hx Hypothyroidism Renal/ Medical History: Denies: Hx Peritoneal Dialysis GI Medical History: Reports: Hx Gastroesophageal Reflux Disease. Denies: Hx Cirrhosis, Hx Hepatitis Musculoskeltal Medical History: Reports Hx Arthritis Psychiatric Medical History: Reports: Hx Bipolar Disorder, Hx Depression - personality disorder, anxiety Infectious Medical History: Denies: Hx Hepatitis Past Surgical History: Reports: Hx Cholecystectomy, Hx Orthopedic Surgery - Immunizations Hx Diphtheria, Pertussis, Tetanus Vaccination: No Review of Systems - Review of Systems Notes: Constitutional: Negative for fever. HENT: Negative for sore throat. Eyes: Negative for visual changes. Cardiovascular: Negative for chest pain. Respiratory: Negative for shortness of breath. Gastrointestinal: Positive for abdominal pain and vomiting Genitourinary: Negative for dysuria. Musculoskeletal: Negative for back pain. Skin: Negative for rash. Neurological: Negative for headaches, weakness or numbness. 10 point ROS negative except as marked above and in HPI. Physical Exam - Vital signs Vitals: Temp Pulse Resp BP Pulse Ox 98.0 F 130 H 22 H 105/54 L 93 06/27/17 00:28 06/27/17 00:28 06/27/17 00:28 06/27/17 00:28 06/27/17 00:28 Interpretation: Tachycardic Notes: PHYSICAL EXAMINATION: GENERAL: Appears mildly uncomfortable but in no acute distress HEAD: Atraumatic, normocephalic. EYES: Pupils equal round and reactive to light, extraocular movements intact, sclera anicteric, conjunctiva are normal. ENT: nares patent, oropharynx clear without exudates. Moderately dry mucous membranes. NECK: Normal range of motion, supple without lymphadenopathy LUNGS: Breath sounds clear to auscultation bilaterally and equal. No wheezes rales or rhonchi. HEART: Regular tachycardia without murmurs ABDOMEN: Soft, focal tenderness to the epigastrium without rebound or guarding otherwise no focal tenderness, normoactive bowel sounds. No guarding, no rebound. No masses appreciated. EXTREMITIES: Normal range of motion, no pitting or edema. No cyanosis. NEUROLOGICAL: No focal neurological deficits. Moves all extremities spontaneously and on command. PSYCH: Normal mood, normal affect. SKIN: Warm, Dry, normal turgor, no rashes or lesions noted. Course - Re-evaluation Re-evalutation: 06/27/17 01:12 Patient presents with epigastric abdominal pain with associated vomiting diarrhea. He states this feels like prior episodes of pancreatitis. He is overall in appearance, no acute distress, vitals within normal limits. Abdominal exam shows only mild epigastric abdominal tenderness without any additional focal tenderness. He has already had a cholecystectomy 1997. He denies other abdominal surgeries. Differential includes acute gastritis, duodenitis, acute pancreatitis, much less likely atypical ACS, bowel obstruction , and I do not at all suspect mesenteric ischemia or AAA rupture. Will obtain basic labs, provide Toradol, antiemetics and reassess 06/27/17 02:12 Laboratories do find that patient has acute pancreatitis with an elevated lipase of 903. On reassessment, patient continues to be tachycardic with heart rate of 125 at the bedside. He has had some intermittently soft pressures although this is fluid responsive. He remains alert, talkative and appropriate. However given his ongoing nausea, continued abdominal pain despite IV narcotic analgesia, and persistent vital sign abnormalities I do not believe he would be safe for outpatient management of pancreatitis. I discussed with Dr. Finley for admission and he is agreeable. - Vital Signs Vital signs: Temp Pulse Resp BP Pulse Ox 98.0 F 130 H 22 H 105/54 L 93 06/27/17 00:28 06/27/17 00:28 06/27/17 00:28 06/27/17 00:28 06/27/17 00:28 - Laboratory Result Diagrams: 06/27/17 01:20 06/27/17 01:20 Laboratory results interpreted by me: 06/27/17 06/27/17 01:20 01:20 RBC 4.06 L Hgb 13.4 L MCV 98 H Plt Count 72 L Glucose 480 H* AST 87 H Total Protein 6.1 L Lipase 903.4 H Discharge - Discharge Clinical Impression: Hyperglycemia Acute pancreatitis Qualifiers: Pancreatitis type: unspecified pancreatitis type Acute pancreatitis complication: no infection or necrosis Qualified Code(s): K85.90 - Acute pancreatitis without necrosis or infection, unspecified Condition: Fair Disposition: ADMITTED OBSERVATION Admitting Provider: [facility] Admitted: Telemetry Referrals: MONICA MITCHELL MD [Primary Care Provider] - Follow up as needed
[2017-06-27 01:34] LABS: HEMATOCRIT 39.7 % (37.9-51.0); HEMOGLOBIN 13.4 g/dL (13.5-17.0); HGB HCT DIFFERENCE 0.5; MEAN CORPUSCULAR HEMOGLOBIN 32.9 pg (27.0-33.4); MEAN CORPUSCULAR HGB CONC 33.6 g/dL (32.0-36.0); MEAN CORPUSCULAR VOLUME 98 fl (80-97); RED BLOOD COUNT 4.06 10^6/uL (4.35-5.55); RED CELL DISTRIBUTION WIDTH 13.2 % (11.5-14.0); WHITE BLOOD COUNT 4.7 10^3/uL (4.0-10.5)
[2017-06-27] MEDS: MORPHINE SULFATE 10 MG/ML INJ IV PRN ×2 (01:40→06:27)
[2017-06-27 01:56] LABS: ALANINE AMINOTRANSFERASE 61 U/L (21-72); ALBUMIN 3.6 g/dL (3.5-5.0); ALKALINE PHOSPHATASE 85 U/L (38-126); ANION GAP 13 (5-19); ASPARTATE AMINO TRANSFERASE 87 U/L (17-59); BILIRUBIN,DIRECT 0.4 mg/dL (0.0-0.4); BILIRUBIN,TOTAL 0.4 mg/dL (0.2-1.3); BLOOD UREA NITROGEN 12 mg/dL (7-20); CALCIUM 9.9 mg/dL (8.4-10.2); CARBON DIOXIDE 25 mmol/L (22-30); CHLORIDE 101 mmol/L (98-107); LIPASE 903.4 U/L (23-300); POTASSIUM 3.9 mmol/L (3.6-5.0); SODIUM 138.8 mmol/L (137-145); TOTAL PROTEIN 6.1 g/dL (6.3-8.2)
[2017-06-27 02:03] LABS: GLUCOSE 480 mg/dL (75-110)
[2017-06-27] MEDS ORDERED: INSULIN REG, HUMAN 100 UNIT/ML 3 ML VIAL (PYX) SUBCUT ONE (02:04)
[2017-06-27] MEDS ORDERED: LORAZEPAM INJ 2 MG/1 ML VIAL IV ONE (02:12)
[2017-06-27] MEDS ORDERED: ACETAMINOPHEN 325 MG TABLET PO PRN (02:15)
[2017-06-27] MEDS ORDERED: GLUCAGON,HUMAN RECOMB 1 MG INJ IM PRN (02:18)
[2017-06-27] MEDS ORDERED: DEXTROSE 50%-WATER 25 GM/50 ML DISP.SYRIN IV PRN ×2 (02:18)
[2017-06-27] MEDS ORDERED: DEXTROSE 40% GEL 15 GM TUBE PO PRN ×2 (02:18)
[2017-06-27] MEDS ORDERED: IPRATROPIUM/ALBUTEROL 0.5-2.5 MG/3 ML AMPUL NEB PRN ×2 (02:18)
[2017-06-27] MEDS ORDERED: KETOROLAC TROMETHAMINE INJ/PF 30 MG/1 ML SDV IV PRN ×2 (02:22→08:12)
[2017-06-27 02:33] LABS: MAGNESIUM 1.5 mg/dL (1.6-2.3); PHOSPHORUS 3.6 mg/dL (2.5-4.5)
[2017-06-27] MEDS: NORMAL SALINE 1000 ML 1,000 ML IV SCH ×3 (03:21→07:58)
--- NOTE | 2017-06-27 03:24 | PDOC H&P ---
History of Present Illness Admission Date/PCP: 06/27/17 02:20 MONICA MITCHELL MD Patient complains of: Epigastric pain and nausea History of Present Illness: JERI TAYLOR is a 47 year old male with a past medical history of morbid obesity, tobacco abuse, remote pulmonary emboli, alcoholism, alcoholic pancreatitis, diabetes, hypertension and schizophrenia. The patient been in his usual state of health until approximately 24 hours prior to presentation after dietary indiscretion consuming several beers resulting in epigastric pain nausea vomiting and loose stools similar to previous presentations prompting her to seek evaluation emergency room where is found to have an tachycardia, elevated lipase, AST and thrombocytopenia unable to tolerate p.o. he is referred to the hospitalist for admission. Past Medical History Cardiac Medical History: Reports: DVT, Myocardial Infarction - States workup revealed pulmonary embolus., Hyperlipidema, Hypertension, Pulmonary Embolism Denies: Atrial Fibrillation, Congestive Heart Failure, Coronary Artery Disease Pulmonary Medical History: Reports: Bronchitis, Sleep Apnea - Noncompliant with uncomfortable mask. Denies: Asthma, Chronic Obstructive Pulmonary Disease (COPD) Neurological Medical History: Denies: Seizures Endocrine Medical History: Reports: Diabetes Mellitus Type 2 Denies: Hyperthyroidism, Hypothyroidism GI Medical History: Reports: Gastroesophageal Reflux Disease Denies: Cirrhosis, Hepatitis Musculoskeltal Medical History: Reports: Arthritis Psychiatric Medical History: Reports: Bipolar Disorder, Depression - personality disorder, anxiety, Schizoaffective Disorder Past Surgical History Past Surgical History: Reports: Cholecystectomy, Orthopedic Surgery Social History Information Source: Patient Lives with: Spouse/Significant other Smoking Status: Current Every Day Smoker Frequency of Alcohol Use: Rare - Alcohol abuse in his 20s. Hx Recreational Drug Use: No Drugs: None Hx Prescription Drug Abuse: No - Advance Directive Resuscitation Status: Full Code Family History Family History: COPD Parental Family History Reviewed: Yes Children Family History Reviewed: Yes Sibling(s) Family History Reviewed.: Yes Medication/Allergy Home Medications: Acetaminophen [Tylenol 325 mg Tablet] 650 mg PO Q8HP PRN tablet 06/22/17 Duloxetine HCl 90 mg PO DAILY 06/22/17 Esomeprazole Mag Trihydrate [Nexium] 40 mg PO DAILY 06/22/17 Fenofibrate Nanocrystallized [Fenofibrate] 145 mg PO DAILY 06/22/17 Insulin Glargine,Hum.rec.anlog [Lantus Insulin 100 Unit/mL] 40 unit SUBCUT QHS # 3 insuln.pen 06/22/17 Insulin Glargine,Hum.rec.anlog [Lantus] 40 units SQ QHS 06/22/17 Lisinopril [Prinivil 2.5 mg Tablet] 2.5 mg PO DAILY 06/22/17 Naproxen 500 mg PO BIDP PRN #30 tablet 06/22/17 Prazosin HCl 3 mg PO QHS 06/22/17 Quetiapine Fumarate [Seroquel] 400 mg PO QHS 06/22/17 Simvastatin [Zocor 20 mg Tablet] 20 mg PO QHS 06/22/17 Sitagliptin Phos/Metformin HCl [Janumet 50-500 mg Tablet] 1 tab PO Q12 #60 tablet 06/22/17 Sucralfate [Carafate 1 gm Tablet] 1 tab PO Q6 06/22/17 Allergies/Adverse Reactions: Iodinated Contrast- Oral and IV Dye Allergy (Unknown, Verified 06/22/17 09:48) IV dye Allergy (Uncoded 03/11/17 02:11) Review of Systems Constitutional: PRESENT: as per HPI, fatigue Eyes: ABSENT: visual disturbances Ears: ABSENT: hearing changes Cardiovascular: ABSENT: chest pain, dyspnea on exertion, edema, orthropnea, palpitations Respiratory: ABSENT: cough, hemoptysis Gastrointestinal: PRESENT: abdominal pain, bloating, nausea, vomiting. ABSENT: constipation, diarrhea, heartburn, hematemesis, hematochezia Genitourinary: ABSENT: dysuria, hematuria Musculoskeletal: ABSENT: joint swelling Integumentary: ABSENT: rash, wounds Neurological: ABSENT: abnormal gait, abnormal speech, confusion, dizziness, focal weakness, syncope Psychiatric: ABSENT: anxiety, depression, homidical ideation, suicidal ideation Endocrine: ABSENT: cold intolerance, heat intolerance, polydipsia, polyuria Hematologic/Lymphatic: ABSENT: easy bleeding, easy bruising Physical Exam Vital Signs: Temp Pulse Resp BP Pulse Ox 98.0 F 130 H 22 H 105/54 L 93 06/27/17 00:28 06/27/17 00:28 06/27/17 00:28 06/27/17 00:06/27/17 00:28 General appearance: PRESENT: cooperative, mild distress, morbidly obese Head exam: PRESENT: atraumatic, normocephalic Eye exam: PRESENT: conjunctiva pink, EOMI, PERRLA. ABSENT: scleral icterus Ear exam: PRESENT: normal external ear exam Mouth exam: PRESENT: moist, tongue midline Neck exam: ABSENT: carotid bruit, JVD, lymphadenopathy, thyromegaly Respiratory exam: PRESENT: clear to auscultation rosy. ABSENT: rales, rhonchi, wheezes Cardiovascular exam: PRESENT: RRR. ABSENT: diastolic murmur, rubs, systolic murmur Pulses: PRESENT: normal dorsalis pedis pul Vascular exam: PRESENT: normal capillary refill GI/Abdominal exam: PRESENT: hyperactive bowel sounds, soft, tenderness. ABSENT : ascites, diminished bowel sounds, firm, guarding, rigid Rectal exam: PRESENT: deferred Extremities exam: PRESENT: full ROM. ABSENT: calf tenderness, clubbing, pedal edema Neurological exam: PRESENT: alert, awake, oriented to person, oriented to place , oriented to time, oriented to situation, CN II-XII grossly intact. ABSENT: motor sensory deficit Psychiatric exam: PRESENT: anxious Skin exam: PRESENT: dry, intact, warm. ABSENT: cyanosis, rash Assessment & Plan - Diagnosis (1) Acute on chronic pancreatitis Is this a current diagnosis for this admission?: Yes Plan: Secondary to alcoholism, n.p.o., IV fluid challenge symptomatic management avoiding opiates. (2) Diabetes mellitus type 2, uncontrolled Qualifiers: Is this a current diagnosis for this admission?: Yes Plan: Reduction of long-acting insulin by half with sliding scale as needed every 6 hours (3) Bipolar disorder Qualifiers: Is this a current diagnosis for this admission?: Yes Plan: Seroquel and as needed Ativan (4) SHENA (obstructive sleep apnea) Is this a current diagnosis for this admission?: Yes Plan: BiPAP (5) Tobacco dependency Is this a current diagnosis for this admission?: Yes Plan: Tobacco Dependence patient received tobacco cessation counseling and offered nicotine replacement options (6) Alcoholism Is this a current diagnosis for this admission?: Yes Plan: Thiamine and folate, Ativan as needed withdrawal symptomology consider referral to outpatient rehab - Time Time Spent: 50 to 70 Minutes - Inpatient Certification Medical Necessity: Need Close Monitoring Due to Risk of Patient Decompensation
[2017-06-27] MEDS: SUCRALFATE 1 GM TABLET PO SCH ×3 (05:33→17:29)
[2017-06-27] MEDS: HEPARIN SOD (PORCINE) 5,000 UNIT/ML 1 ML SYRINGE SUBCUT SCH ×3 (05:33→21:30)
[2017-06-27 06:44] LABS: ABSOLUTE EOSINOPHILS # (AUTO) 0.1 10^3/uL (0.0-0.6); ABSOLUTE LYMPHOCYTES (AUTO) 1.4 10^3/uL (0.5-4.7); ABSOLUTE MONOCYTES (AUTO) 0.5 10^3/uL (0.1-1.4); ABSOLUTE NEUT (AUTO) 2.6 10^3/uL (1.7-8.2); BASOPHILS % (AUTO) 0.4 % (0-2); EOSINOPHILS % (AUTO) 1.3 % (0-6); HEMATOCRIT 35.5 % (37.9-51.0); HEMOGLOBIN 12.1 g/dL (13.5-17.0); HGB HCT DIFFERENCE 0.8; LYMPHOCYTES % (AUTO) 30.8 % (13-45); MEAN CORPUSCULAR HEMOGLOBIN 33.2 pg (27.0-33.4); MEAN CORPUSCULAR HGB CONC 34.1 g/dL (32.0-36.0); MEAN CORPUSCULAR VOLUME 97 fl (80-97); RED BLOOD COUNT 3.65 10^6/uL (4.35-5.55); RED CELL DISTRIBUTION WIDTH 13.5 % (11.5-14.0); SEGMENTED NEUTROPHILS % (AUTO) 57.5 % (42-78); WHITE BLOOD COUNT 4.6 10^3/uL (4.0-10.5)
[2017-06-27 06:58] LABS: ALANINE AMINOTRANSFERASE 53 U/L (21-72); ALBUMIN 2.9 g/dL (3.5-5.0); ALKALINE PHOSPHATASE 76 U/L (38-126); ANION GAP 10 (5-19); ASPARTATE AMINO TRANSFERASE 63 U/L (17-59); BILIRUBIN,DIRECT 0.4 mg/dL (0.0-0.4); BILIRUBIN,TOTAL 0.4 mg/dL (0.2-1.3); BLOOD UREA NITROGEN 12 mg/dL (7-20); CARBON DIOXIDE 24 mmol/L (22-30); CHLORIDE 105 mmol/L (98-107); GLUCOSE 300 mg/dL (75-110); POTASSIUM 4.2 mmol/L (3.6-5.0); SODIUM 138.5 mmol/L (137-145); TOTAL PROTEIN 5.2 g/dL (6.3-8.2)
[2017-06-27] MEDS ORDERED: MORPHINE SULFATE 10 MG/ML INJ IV PRN ×2 (07:11→08:13)
[2017-06-27] MEDS: MAGNESIUM SULFATE/D5W 1 GM/100 ML RTUPB IV SCH ×2 (07:57→09:45)
[2017-06-27] MEDS ORDERED: LORAZEPAM INJ 2 MG/1 ML VIAL IV PRN (08:14)
[2017-06-27] MEDS: DULOXETINE HCL 30 MG CAPSULE.DR PO SCH (09:46)
[2017-06-27] MEDS: FENOFIBRATE NANOCRYSTALLIZED 145 MG TABLET PO SCH (09:46)
[2017-06-27] MEDS: LANSOPRAZOLE 30 MG TAB.RAP.DR PO SCH (09:46)
[2017-06-27] MEDS ORDERED: (PENDING PHARMACY ID) (Esomeprazole Mag Trihydrate [Nexium] 40 MG) PO SCH (10:00)
[2017-06-27] MEDS: THIAMINE HCL 100 MG, FOLIC ACID 1 MG in NORMAL SALINE 50 ML IV SCH (11:27)
[2017-06-27] MEDS ORDERED: MAGNESIUM SULFATE/D5W 1 GM/100 ML RTUPB IV ONE (11:45)
[2017-06-27] MEDS ORDERED: METHYLPREDNISOLONE INJ 125 MG/2 ML SDV IV ONE (16:00)
[2017-06-27] MEDS ORDERED: DIPHENHYDRAMINE HCL 50 MG/ML VIAL IV ONE (16:00)
[2017-06-27] MEDS ORDERED: FAMOTIDINE INJ/PF 20 MG/2 ML SDV IV ONE (16:00)
--- NOTE | 2017-06-27 16:40 | RADIOLOGY REPORT (SQ) ---
EXAM DESCRIPTION: CT ABD/PELVIS WITH IV ONLY COMPLETED DATE/TIME: 06/27/2017 4:27 pm REASON FOR STUDY: abdominal pain COMPARISON: CT chest 05/28/2017. 06/21/2017 CT chest. TECHNIQUE: CT scan of the abdomen and pelvis performed using helical scanning technique with dynamic intravenous contrast injection. No oral contrast. Images reviewed with lung, soft tissue, and bone windows. Reconstructed coronal and sagittal MPR images reviewed. Delayed images for evaluation of the urinary system also acquired. All images stored on PACS. All CT scanners at this facility use dose modulation, iterative reconstruction, and/or weight based d osing when appropriate to reduce radiation dose to as low as reasonably achievable (ALARA). [facility]: Dose Right [facility]: CareDose [facility]: Dose Right [facility]: Teradose 4D [facility]: Vidable CONTRAST TYPE AND DOSE: contrast/concentration: Isovue 370.00 mg/ml; Total Contrast Delivered: 100.0 ml; Total Saline Delivered: 40.0 ml RENAL FUNCTION: None required. The patient is less than 50 years old. RADIATION DOSE: Up-to-date CT equipment and radiation dose reduction techniques were employed. CTDIv ol: NaN - NaN mGy. DLP: 0 mGy-cm.. LIMITATIONS: None. FINDINGS: LOWER CHEST: 1.4 cm opacity in the right base, 1st image. Incompletely visualized. Pleas e refer to recent CT dedicated chest studies. LIVER: Unremarkable. SPLEEN: Normal size. No focal lesions. PANCREAS: Calcification in the pancreatic head may reflect chronic pancreatitis. In the gastrohepati c ligament, there is a 2 cm short axis solitary lymph node. Currently, no active peripancreatic infl ammatory changes or fluid otherwise. No duct dilatation. GALLBLADDER: Surgically absent. ADRENAL GLANDS: No significant masses or asymmetry. RIGHT KIDNEY AND URETER: No solid masses. No significant calcification. No hydronephrosis or hydroure ter. LEFT KIDNEY AND URETER: No solid masses. No significant calcification. No hydronephrosis or hydrouret er. AORTA AND VESSELS: No aneurysm. No dissection. Renal arteries, SMA, celiac without stenosis. RETROPERITONEUM: Shotty subcentimeter nodes with mild haziness in the fat. No enlarged nodes, howeve r. Doubtful clinical significance. BOWEL AND PERITONEAL CAVITY: No masses or inflammatory changes. No free fluid or peritoneal masses. APPENDIX: Not visualized. PELVIS: No mass. No free fluid. Normal bladder. ABDOMINAL WALL: No masses. No hernias. BONES: No significant or acute findings. OTHER: No other significant finding. IMPRESSION: 1. Findings suggesting chronic pancreatitis as above. This likely explains a small prom inent gastrohepatic ligament lymph node as well. No active inflammatory changes or adjacent fluid cu rrently identified, however correlate with pancreatic labs to assess for active pancreatitis. 2. Ot herwise, fairly unremarkable study. No evidence of urinary obstruction or stones. TECHNICAL DOCUMENTATION: JOB ID: [id number] Quality ID # [id number]: Final reports with documentation of one or more dose reduction techniques (e.g., Au tomated exposure control, adjustment of the mA and/or kV according to patient size, use of iterative reconstruction technique) 2010 [employer]- All Rights Reserved
[2017-06-27] MEDS: NORMAL SALINE 1000 ML 1,000 ML IV PRN ×2 (18:07→20:56)
[2017-06-27] MEDS: ONDANSETRON HCL INJ/PF 4 MG/2 ML SDV IV PRN (20:53)
[2017-06-27] MEDS: INSULIN GLARGINE,HUM.REC.ANLOG 300 UNIT/3 ML INSULN.PEN SUBCUT SCH (21:27)
[2017-06-27] MEDS: QUETIAPINE FUMARATE 100 MG TABLET PO SCH (21:29)
[2017-06-27] MEDS ORDERED: QUETIAPINE FUMARATE 100 MG TABLET PO SCH (22:00)
[2017-06-27] MEDS ORDERED: PRAZOSIN HCL 3 MG PO SCH (22:00)
[2017-06-27] MEDS ORDERED: (PENDING PHARMACY ID) (Quetiapine Fumarate [Seroquel] 400 MG) PO SCH (22:00)
[2017-06-28] MEDS: SUCRALFATE 1 GM TABLET PO SCH ×5 (00:14→23:43)
[2017-06-28 06:16] LABS: ABSOLUTE LYMPHOCYTES (AUTO) 0.7 10^3/uL (0.5-4.7); ABSOLUTE MONOCYTES (AUTO) 0.2 10^3/uL (0.1-1.4); ABSOLUTE NEUT (AUTO) 6.8 10^3/uL (1.7-8.2); BASOPHILS % (AUTO) 0.2 % (0-2); EOSINOPHILS % (AUTO) 0.1 % (0-6); HEMATOCRIT 35.8 % (37.9-51.0); HEMOGLOBIN 12.5 g/dL (13.5-17.0); HGB HCT DIFFERENCE 1.7; LYMPHOCYTES % (AUTO) 9.1 % (13-45); MEAN CORPUSCULAR HEMOGLOBIN 33.4 pg (27.0-33.4); MEAN CORPUSCULAR HGB CONC 34.8 g/dL (32.0-36.0); MEAN CORPUSCULAR VOLUME 96 fl (80-97); MONOCYTES % (AUTO) 2.6 % (3-13); RED BLOOD COUNT 3.73 10^6/uL (4.35-5.55); RED CELL DISTRIBUTION WIDTH 13.3 % (11.5-14.0); WHITE BLOOD COUNT 7.8 10^3/uL (4.0-10.5)
[2017-06-28 06:33] LABS: ALANINE AMINOTRANSFERASE 85 U/L (21-72); ALBUMIN 3.1 g/dL (3.5-5.0); ALKALINE PHOSPHATASE 75 U/L (38-126); ANION GAP 9 (5-19); ASPARTATE AMINO TRANSFERASE 90 U/L (17-59); BILIRUBIN,DIRECT 0.3 mg/dL (0.0-0.4); BILIRUBIN,TOTAL 0.5 mg/dL (0.2-1.3); BLOOD UREA NITROGEN 17 mg/dL (7-20); CALCIUM 8.3 mg/dL (8.4-10.2); CARBON DIOXIDE 22 mmol/L (22-30); CHLORIDE 108 mmol/L (98-107); GLUCOSE 222 mg/dL (75-110); LIPASE 201.8 U/L (23-300); MAGNESIUM 1.6 mg/dL (1.6-2.3); POTASSIUM 4.9 mmol/L (3.6-5.0); TOTAL PROTEIN 5.7 g/dL (6.3-8.2)
[2017-06-28] MEDS: NORMAL SALINE 1000 ML 1,000 ML IV PRN ×3 (06:33→22:12)
[2017-06-28] MEDS: HEPARIN SOD (PORCINE) 5,000 UNIT/ML 1 ML SYRINGE SUBCUT SCH ×3 (06:34→21:15)
[2017-06-28] MEDS: MAGNESIUM SULFATE/D5W 1 GM/100 ML RTUPB IV SCH ×3 (09:44→12:46)
[2017-06-28] MEDS: DULOXETINE HCL 30 MG CAPSULE.DR PO SCH (09:44)
[2017-06-28] MEDS: FENOFIBRATE NANOCRYSTALLIZED 145 MG TABLET PO SCH (09:44)
[2017-06-28] MEDS: LANSOPRAZOLE 30 MG TAB.RAP.DR PO SCH ×2 (09:44→16:35)
[2017-06-28] MEDS: ONDANSETRON HCL INJ/PF 4 MG/2 ML SDV IV PRN (09:53)
[2017-06-28] MEDS: THIAMINE HCL 100 MG, FOLIC ACID 1 MG in NORMAL SALINE 50 ML IV SCH (13:30)
[2017-06-28] MEDS: INSULIN LISPRO 100 UNIT/ML 3 ML VIAL SUBCUT PRN ×3 (13:35→21:30)
--- NOTE | 2017-06-28 16:32 | PDOC PROGRESS REPORT ---
Subjective Progress Note for:: 06/28/17 Subjective:: Patient reports he is feeling somewhat better. He does complain of some nausea. He reports he only drinks 2 beers daily. Admits to some slight shortness of breath. Patient denies chest pain, abdominal pain, vomiting, fevers, chills, diarrhea, constipation, headache, new onset weakness. Physical Exam Vital Signs: Temp Pulse Resp BP Pulse Ox 98.4 F 88 17 130/87 H 100 06/28/17 11:19 06/28/17 11:19 06/28/17 11:19 06/28/17 11:19 06/28/17 11:19 Intake & Output 06/27/17 06/28/17 06/29/17 06:59 06:59 06:59 Intake Total 750 4550 360 Output Total 800 800 Balance 750 3750 -440 Weight 116.9 kg 116.9 kg Exam: General: Awake alert and oriented x3, no acute respiratory distress HEENT: AT/NC, PERRL, EOMI, oropharynx is moist, pink, no scleral icterus, no conjunctival injection Neck: No JVD, trachea midline Chest: Clear to auscultation bilaterally, no wheezes rhonchi or rales CV: Regular rate and rhythm, normal S1 and S2, no murmur, rub, or gallop Abdomen: Soft, very mild tender to palpation nydia, nondistended, hypoactive bowel sounds; no rebound, rigidity, or guarding Extremities: No cyanosis, clubbing or edema Neuro: Cranial nerves II through XII are grossly intact without focal deficits; awake alert and oriented x3 Psych:flat mood, unusual affect Results Laboratory Results: 06/28/17 05:52 06/28/17 05:52 06/27/17 06/28/17 06/28/17 17:00 05:52 05:52 WBC 7.8 RBC 3.73 L Hgb 12.5 L Hct 35.8 L MCV 96 MCH 33.4 MCHC 34.8 RDW 13.3 Plt Count 72 L Seg Neutrophils % 88.0 H Lymphocytes % 9.1 L Monocytes % 2.6 L Eosinophils % 0.1 Basophils % 0.2 Absolute Neutrophils 6.8 Absolute Lymphocytes 0.7 Absolute Monocytes 0.2 Absolute Eosinophils 0.0 Absolute Basophils 0.0 Sodium 139.0 Potassium 4.9 Chloride 108 H Carbon Dioxide 22 Anion Gap 9 BUN 17 Creatinine 0.80 Est GFR ( Amer) > 60 Est GFR (Non-Af Amer) > 60 Glucose 222 H Calcium 8.3 L Magnesium 1.6 Total Bilirubin 0.5 AST 90 H ALT 85 H Alkaline Phosphatase 75 Total Protein 5.7 L Albumin 3.1 L Triglycerides 149 Lipase 201.8 Impressions: Abdomen/Pelvis CT 06/27/17 00:00 IMPRESSION: 1. Findings suggesting chronic pancreatitis as above. This likely explains a small prominent gastrohepatic ligament lymph node as well. No active inflammatory changes or adjacent fluid currently identified, however correlate with pancreatic labs to assess for active pancreatitis. 2. Otherwise , fairly unremarkable study. No evidence of urinary obstruction or stones. Assessment & Plan - Diagnosis (1) Acute on chronic pancreatitis Is this a current diagnosis for this admission?: Yes Plan: Advance diet as tolerated. Decrease IV fluids. If able to tolerate pain with oral medication may be discharged home in 24 hours. (2) Alcoholism Is this a current diagnosis for this admission?: Yes Plan: Patient has prior history of alcoholism, but suspect the patient is not a chronic drinker at this time. He is showing no signs of withdrawal. Stop Ativan. Continue thiamine and folic acid. 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 (5) Bipolar disorder Qualifiers: Active/Remission status: remission status unspecified Qualified Code(s): F31.9 - Bipolar disorder, unspecified Is this a current diagnosis for this admission?: Yes Plan: Continue home medications (6) History of DVT (deep vein thrombosis) Is this a current diagnosis for this admission?: Yes (7) History of pulmonary embolism Is this a current diagnosis for this admission?: Yes (8) SHENA (obstructive sleep apnea) Is this a current diagnosis for this admission?: Yes Plan: May use home CPAP (9) Tobacco dependency Is this a current diagnosis for this admission?: Yes Plan: Encouraged to stop. Given nicotine patch - Time Time Spent with patient: 25-34 minutes Medications reviewed and adjusted accordingly: Yes Anticipated discharge: Home Within: within 24 hours, within 48 hours
[2017-06-28] MEDS: QUETIAPINE FUMARATE 100 MG TABLET PO SCH (21:07)
[2017-06-28] MEDS: OXYCODONE-ACETAMINOPHEN 5-325 MG TABLET PO PRN (21:07)
[2017-06-28] MEDS: INSULIN GLARGINE,HUM.REC.ANLOG 300 UNIT/3 ML INSULN.PEN SUBCUT SCH (21:30)
[2017-06-29] MEDS: SUCRALFATE 1 GM TABLET PO SCH ×2 (05:44→11:29)
[2017-06-29] MEDS: LANSOPRAZOLE 30 MG TAB.RAP.DR PO SCH (05:44)
[2017-06-29] MEDS: HEPARIN SOD (PORCINE) 5,000 UNIT/ML 1 ML SYRINGE SUBCUT SCH (05:47)
[2017-06-29 06:04] LABS: ABSOLUTE BASOPHILS # (AUTO) 0.1 10^3/uL (0.0-0.2); ABSOLUTE EOSINOPHILS # (AUTO) 0.1 10^3/uL (0.0-0.6); ABSOLUTE LYMPHOCYTES (AUTO) 1.3 10^3/uL (0.5-4.7); ABSOLUTE MONOCYTES (AUTO) 0.6 10^3/uL (0.1-1.4); ABSOLUTE NEUT (AUTO) 4.8 10^3/uL (1.7-8.2); BASOPHILS % (AUTO) 0.9 % (0-2); EOSINOPHILS % (AUTO) 1.2 % (0-6); HEMATOCRIT 36.8 % (37.9-51.0); HEMOGLOBIN 12.7 g/dL (13.5-17.0); HGB HCT DIFFERENCE 1.3; LYMPHOCYTES % (AUTO) 19.2 % (13-45); MEAN CORPUSCULAR HEMOGLOBIN 33.6 pg (27.0-33.4); MEAN CORPUSCULAR HGB CONC 34.4 g/dL (32.0-36.0); MEAN CORPUSCULAR VOLUME 98 fl (80-97); MONOCYTES % (AUTO) 8.4 % (3-13); RED BLOOD COUNT 3.77 10^6/uL (4.35-5.55); RED CELL DISTRIBUTION WIDTH 13.7 % (11.5-14.0); SEGMENTED NEUTROPHILS % (AUTO) 70.3 % (42-78); WHITE BLOOD COUNT 6.8 10^3/uL (4.0-10.5)
[2017-06-29] MEDS: OXYCODONE-ACETAMINOPHEN 5-325 MG TABLET PO PRN (08:04)
[2017-06-29] MEDS: DULOXETINE HCL 30 MG CAPSULE.DR PO SCH (09:02)
[2017-06-29] MEDS: THIAMINE HCL 100 MG, FOLIC ACID 1 MG in NORMAL SALINE 50 ML IV SCH (09:02)
[2017-06-29] MEDS: NORMAL SALINE 1000 ML 1,000 ML IV PRN (09:02)
[2017-06-29] MEDS: FENOFIBRATE NANOCRYSTALLIZED 145 MG TABLET PO SCH (09:02)
[2017-06-29] MEDS ORDERED: BISACODYL 5 MG TABEC PO ONE (10:26)
[2017-06-29 12:39] VITALS: BP 133/77
--- NOTE | 2017-06-29 16:28 | PDOC DISCHARGE SUMMARY ---
General - Admit/Disc Date/PCP Admission Date/Primary Care Provider: 06/27/17 02:20 MONICA MITCHELL MD Discharge Date: 06/29/17 - Discharge Diagnosis (1) Acute on chronic pancreatitis Is this a current diagnosis for this admission?: Yes (2) Alcoholism Is this a current diagnosis for this admission?: Yes (3) Diabetes mellitus type 2, uncontrolled Is this a current diagnosis for this admission?: Yes (4) Nodule of right lung Is this a current diagnosis for this admission?: Yes (5) Bipolar disorder Is this a current diagnosis for this admission?: Yes (6) History of DVT (deep vein thrombosis) Is this a current diagnosis for this admission?: Yes (7) History of pulmonary embolism Is this a current diagnosis for this admission?: Yes (8) SHENA (obstructive sleep apnea) Is this a current diagnosis for this admission?: Yes (9) Tobacco dependency Is this a current diagnosis for this admission?: Yes (10) Severe obesity (BMI 35.0-35.9 with comorbidity) Is this a current diagnosis for this admission?: Yes - Additional Information Resuscitation Status: Full Code Discharge Diet: Cardiac, Diabetic Discharge Activity: Activity As Tolerated, Slowly Increase Activity Home Medications: Duloxetine HCl 90 mg PO DAILY 06/27/17 Esomeprazole Mag Trihydrate [Nexium] 40 mg PO DAILY 06/27/17 Fenofibrate Nanocrystallized [Fenofibrate] 145 mg PO DAILY 06/27/17 Insulin Glargine,Hum.rec.anlog [Lantus Solostar] 40 unit SQ QHS 06/27/17 Naproxen 500 mg PO Q12HP PRN 06/27/17 Prazosin HCl [Minipress] 3 mg PO QHS 06/27/17 Quetiapine Fumarate [Seroquel] 400 mg PO QHS 06/27/17 Sitagliptin Phos/Metformin HCl [Janumet Xr 100-1,000 mg Tablet] 1 tab PO DAILY 06/27/17 Oxycodone HCl/Acetaminophen [Percocet 5-325 mg Tablet] 1 tab PO Q4HP PRN #10 tablet 06/29/17 History of Present Illness History of Present Illness: JERI TAYLOR is a 47 year old male with a past medical history of morbid obesity, tobacco abuse, remote pulmonary emboli, alcoholism, alcoholic pancreatitis, diabetes, hypertension and schizophrenia. The patient been in his usual state of health until approximately 24 hours prior to presentation after dietary indiscretion consuming several beers resulting in epigastric pain nausea vomiting and loose stools similar to previous presentations prompting her to seek evaluation emergency room where is found to have an tachycardia, elevated lipase, AST and thrombocytopenia unable to tolerate p.o. he is referred to the hospitalist for admission. Hospital Course Hospital Course: Patient was admitted placed on IV fluids and pain control and made an p.o. His pain quickly improved and he was able to tolerate p.o. and had minimal amount of pain that was improved with Percocet. A CT of the abdomen and pelvis was performed which revealed evidence of chronic pancreatitis and lung nodule which was already known to patient. This also did reveal a gastrohepatic ligament node. I discussed this at length with patient and he assures me that his outpatient physician is working on getting him a follow-up for biopsy of his lung nodule. I expressed to him the importance of following up on this. I also expressed patient the importance to stop smoking and to stop drinking alcohol. Patient verbalizes understanding and is discharged in stable condition. Physical Exam Vital Signs: Temp Pulse Resp BP Pulse Ox 97.7 F 77 18 133/77 H 96 06/29/17 11:39 06/29/17 11:39 06/29/17 11:39 06/29/17 11:39 06/29/17 11:39 Intake & Output 06/28/17 06/29/17 06/30/17 06:59 06:59 06:59 Intake Total 4550 360 Output Total 800 800 Balance 3750 -440 Weight 116.9 kg 116.9 kg Exam: General: obese, Awake alert and oriented x3, no acute respiratory distress HEENT: AT/NC, PERRL, EOMI, oropharynx is moist, pink, no scleral icterus, no conjunctival injection Neck: No JVD, trachea midline Chest: Clear to auscultation bilaterally, no wheezes rhonchi or rales CV: Regular rate and rhythm, normal S1 and S2, no murmur, rub, or gallop Abdomen: Soft, non tender to palpation, nondistended, hypoactive bowel sounds; no rebound, rigidity, or guarding Extremities: No cyanosis, clubbing or edema Neuro: Cranial nerves II through XII are grossly intact without focal deficits; awake alert and oriented x3 Psych:flat mood, unusual affect Results Laboratory Results: 06/29/17 05:46 06/28/17 05:52 06/29/17 05:46 WBC 6.8 RBC 3.77 L Hgb 12.7 L Hct 36.8 L MCV 98 H MCH 33.6 H MCHC 34.4 RDW 13.7 Plt Count 76 L Seg Neutrophils % 70.3 Lymphocytes % 19.2 Monocytes % 8.4 Eosinophils % 1.2 Basophils % 0.9 Absolute Neutrophils 4.8 Absolute Lymphocytes 1.3 Absolute Monocytes 0.6 Absolute Eosinophils 0.1 Absolute Basophils 0.1 Impressions: Abdomen/Pelvis CT 06/27/17 00:00 IMPRESSION: 1. Findings suggesting chronic pancreatitis as above. This likely explains a small prominent gastrohepatic ligament lymph node as well. No active inflammatory changes or adjacent fluid currently identified, however correlate with pancreatic labs to assess for active pancreatitis. 2. Otherwise , fairly unremarkable study. No evidence of urinary obstruction or stones. Qualifiers PATEINT BEING DISCHARGED WITH ANY OF THE FOLLOWING DIAGNOSIS?: No Plan Time Spent: Less than 30 Minutes
== END 2017-06-29 13:10 | disposition home or self-care (01) | DRG 440 ==
LOC: ER 00:13 → EH 02:19 → UNDOADMOB 02:20 → INTOOBSV 02:20 → EH 02:20 → OBSVTOIN 02:20 → 5 04:40
PROVIDERS: ADMIT Internal Medicine; ATTEND Internal Medicine
DX: K85.20 Alcohol induced acute pancreatitis without necrosis or infection (principal); K86.0 Alcohol-induced chronic pancreatitis; F17.210 Nicotine dependence, cigarettes, uncomplicated; F31.9 Bipolar disorder, unspecified; E11.65 Type 2 diabetes mellitus with hyperglycemia; G47.33 Obstructive sleep apnea (adult) (pediatric); R91.1 Solitary pulmonary nodule; E66.01 Morbid (severe) obesity due to excess calories; F10.20 Alcohol dependence, uncomplicated; Y90.9 Presence of alcohol in blood, level not specified; Z68.37 Body mass index [BMI] 37.0-37.9, adult; Z91.19 Patient's noncompliance with other medical treatment and regimen; Z79.4 Long term (current) use of insulin; Z86.711 Personal history of pulmonary embolism
CPT/HCPCS: 36415; 74177; 80053; 82962; 83690; 83735; 84100; 84478; 84484; 85025; 85027; J1200; J1644; J1815; J1885; J2060; J2270; J2405; J2930; J3411; J3475; J3490; J7030; J7620; S0028

== ENCOUNTER 2017-07-20 10:19 | Emergency (ER) | payer MEDICARE, MEDICAID ==
[2017-07-20] MEDS ORDERED: NORMAL SALINE 1000 ML 1,000 ML IV ONE (10:58)
[2017-07-20] MEDS ORDERED: ONDANSETRON HCL INJ/PF 4 MG/2 ML SDV IV ONE (10:58)
[2017-07-20] MEDS ORDERED: MORPHINE SULFATE 10 MG/ML INJ IV ONE ×2 (10:58→12:15)
--- NOTE | 2017-07-20 10:58 | ER Document Report ---
ED GI/ - General Mode of Arrival: Ambulatory Information source: Patient TRAVEL OUTSIDE OF THE [place] IN LAST 30 DAYS: No - HPI Patient complains to provider of: Abdominal pain Onset: Just prior to arrival Timing/Duration: Sudden Location: Epigastric Associated symptoms: Other - see narrative Similar symptoms previously: Yes Recently seen / treated by doctor: Yes <TAYLOR CARDENAS - Last Filed: 07/20/17 14:15> <SAVANNAH ELMORE - Last Filed: 07/20/17 14:17> - General Chief Complaint: Abdominal Pain Stated Complaint: ABDOMINAL PAIN Time Seen by Provider: 07/20/17 10:50 Notes: Patient is a 47-year-old male with a history of pancreatitis who presents to the emergency department today with complaints of upper abdominal pain that radiates to his back. Patient states he ate fried eggs just prior to his symptoms beginning this morning. Patient states his last pancreatitis flare was earlier this month and he was admitted for 2 days. Patient mentions right- sided chest pain which he has had for a couple of months. Significant other at bedside states he was recently diagnosed with a lung nodule on the right side and has a follow-up visit scheduled for May 28. She believes this is what is causing his chest pain. Patient states he has not had any EtOH in 2 weeks. Patient complains of diarrhea, a heart racing sensation, and associated shortness of breath. Patient denies any fevers. (TAYLOR CARDENAS) - Related Data Allergies/Adverse Reactions: Iodinated Contrast- Oral and IV Dye Allergy (Unknown, Verified 07/20/17 10:24) IV dye Allergy (Uncoded 07/20/17 10:24) Past Medical History - General Information source: Patient, [facility] Records - Social History Smoking Status: Current Every Day Smoker Cigarette use (# per day): Yes Frequency of alcohol use: Social Drug Abuse: None Lives with: Family Family History: Reviewed & Not Pertinent, COPD - Past Medical History Cardiac Medical History: Reports: Hx DVT, Hx Heart Attack - States workup revealed pulmonary embolus., Hx Hypercholesterolemia, Hx Hypertension, Hx Pulmonary Embolism Pulmonary Medical History: Reports: Hx Bronchitis, Hx Sleep Apnea - Noncompliant with uncomfortable mask. Endocrine Medical History: Reports: Hx Diabetes Mellitus Type 2 GI Medical History: Reports: Hx Gastroesophageal Reflux Disease Musculoskeltal Medical History: Reports Hx Arthritis Psychiatric Medical History: Reports: Hx Bipolar Disorder, Hx Depression - personality disorder, anxiety, Hx Schizoaffective Disorder Past Surgical History: Reports: Hx Cholecystectomy, Hx Orthopedic Surgery - Immunizations Hx Diphtheria, Pertussis, Tetanus Vaccination: No <TAYLOR CARDENAS - Last Filed: 07/20/17 14:15> Review of Systems - Review of Systems Constitutional: denies: Fever EENT: No symptoms reported Cardiovascular: See HPI, Chest pain, Heart racing Respiratory: See HPI, Short of breath Gastrointestinal: See HPI, Abdominal pain - radiating to the back, Diarrhea Genitourinary: No symptoms reported Male Genitourinary: No symptoms reported Musculoskeletal: No symptoms reported Skin: No symptoms reported Hematologic/Lymphatic: No symptoms reported Neurological/Psychological: No symptoms reported -: Yes All other systems reviewed and negative <TAYLOR CARDENAS - Last Filed: 07/20/17 14:15> Physical Exam <TAYLOR CARDENAS - Last Filed: 07/20/17 14:15> <SAVANNAH ELMORE - Last Filed: 07/20/17 14:17> - Vital signs Vitals: Temp Pulse Resp BP Pulse Ox 98.7 F 118 H 28 H 138/78 H 98 07/20/17 10:24 07/20/17 10:24 07/20/17 10:24 07/20/17 10:24 07/20/17 10:24 - Notes Notes: PHYSICAL EXAM GENERAL: Alert, interacts well. Appears mildly uncomfortable. HEAD: Normocephalic, atraumatic. EYES: Pupils equal, round, and reactive to light. Extraocular movements intact. ENT: Oral mucosa moist, tongue midline. NECK: Full range of motion. Supple. Trachea midline. LUNGS: Clear to auscultation bilaterally, no wheezes, rales, or rhonchi. No respiratory distress. HEART: Mildly tachycardic, regular rhythm. No murmurs, gallops, or rubs. ABDOMEN: Soft, obese, diffuse lower abdominal and epigastric tenderness with palpation. Small amount of guarding, no rebound or rigidity. Non-distended. Bowel sounds present in all 4 quadrants. EXTREMITIES: Moves all 4 extremities spontaneously. No edema, radial and dorsalis pedis pulses 2/4 bilaterally. No cyanosis. NEUROLOGICAL: Alert and oriented x3. Normal speech. PSYCH: Normal affect, normal mood. SKIN: Warm, dry, normal turgor. No rashes or lesions noted. (TAYLOR CARDENAS) Course - Laboratory Result Diagrams: 07/20/17 10:55 07/20/17 10:55 <TAYLOR CARDENAS - Last Filed: 07/20/17 14:15> - Laboratory Result Diagrams: 07/20/17 10:55 07/20/17 10:55 <SAVANNAH ELMORE - Last Filed: 07/20/17 14:17> - Re-evaluation Re-evalutation: 07/20/17 12:57 CBC unremarkable, coags normal, CMP grossly unremarkable with the exception of hyperglycemia at 320 consistent with his uncontrolled diabetes and lipase elevated at 808.8. No liver enzyme abnormalities, cardiac enzymes negative, EKG unremarkable, no ischemia. Pain is controlled with 2 doses of morphine, vomiting is under control with Zofran. Patient has been hydrated. No indication for admission at this time. Patient will be discharged to home with pain and nausea medication, will return for uncontrollable vomiting or pain. ( SAVANNAH ELMORE) - Vital Signs Vital signs: Temp Pulse Resp BP Pulse Ox 98.2 F 118 H 29 H 142/86 H 96 07/20/17 13:08 07/20/17 10:24 07/20/17 12:01 07/20/17 13:08 07/20/17 13:08 - Laboratory Laboratory results interpreted by me: 07/20/17 07/20/17 10:55 10:55 RBC 4.29 L Plt Count 112 L Glucose 320 H Lipase 808.8 H - EKG Interpretation by Me Additional EKG results interpreted by me: 07/20/17 12:57 EKG shows sinus tachycardia at a rate of 103, normal axis, normal intervals, no ST segment elevations or depressions, no T-wave inversions per my interpretation. (SAVANNAH ELMORE) Discharge <TAYLOR CARDENAS - Last Filed: 07/20/17 14:15> <SAVANNAH ELMORE - Last Filed: 07/20/17 14:17> - Discharge Clinical Impression: Acute on chronic pancreatitis, Severe obesity (BMI 35.0-35.9 with comorbidity) , Hyperglycemia, Precordial chest pain, Tobacco dependency Hypertension Qualifiers: Hypertension type: essential hypertension Qualified Code(s): I10 - Essential ( primary) hypertension Condition: Stable Disposition: HOME, SELF-CARE Additional Instructions: Pancreatitis Pancreatitis is an inflammation of the pancreas, an organ at the back of your abdomen. The pancreas produces insulin and enzymes that digest your food. Pancreatitis can be caused by gallstones in the bile duct, by alcohol or viruses, or by excess fat or calcium in the blood stream. Occasionally, pancreatitis occurs when a stomach ulcer moy through into the pancreas. We try to find the cause of pancreatitis, but some tests can't be done until the pancreas heals. The usual symptoms of pancreatitis are pain in the pit of the stomach that goes straight through to the back, vomiting, and low-grade fever. Severe cases require hospital admission, but many patients with mild pancreatitis do well at home. You will probably need medicine for pain and for vomiting. Sometimes we prescribe medicine to decrease stomach acid secretion and to decrease flow of pancreatic juices. Start with a diet of clear liquids (soda pop, juices). When the pain is decreasing, you can add some simple starches (potato, toast, applesauce). Avoid proteins and fats until you are completely painfree. When you're better, your doctor may suggest treatment to prevent future pancreatitis (such as gallbladder removal). Avoid alcohol forever. Get immediate treatment for any future episodes. Contact your doctor at once or return here if you have increasing pain, shortness of breath, general swelling, increasing size of the abdomen, continued vomiting, muscle spasms, or other new symptoms. Prescriptions: Ondansetron [Zofran Odt 4 mg Tablet] 1 - 2 tab PO Q4H PRN #15 tab.rapdis PRN Reason: For Nausea/Vomiting Oxycodone HCl/Acetaminophen [Percocet 5-325 mg Tablet] 1 - 2 tab PO Q4H PRN #15 tablet PRN Reason: Promethazine HCl [Phenergan 25 mg Tablet] 1 - 2 tab PO Q6H PRN #15 tablet PRN Reason: Referrals: FAHEEM CHOI PA-C [Primary Care Provider] - Follow up as needed Scribe Attestation: 07/20/17 14:17 I personally performed the services described in the documentation, reviewed and edited the documentation which was dictated to the scribe in my presence, and it accurately records my words and actions. (SAVANNAH ELMORE) Scribe Documentation - Scribe Written by Scribe:: Diamante Castaneda, 07/20/2017 1110 acting as scribe for :: Smita <TAYLOR CARDENAS - Last Filed: 07/20/17 14:15>
[2017-07-20 11:11] LABS: ABSOLUTE EOSINOPHILS # (AUTO) 0.2 10^3/uL (0.0-0.6); ABSOLUTE LYMPHOCYTES (AUTO) 1.3 10^3/uL (0.5-4.7); ABSOLUTE MONOCYTES (AUTO) 0.5 10^3/uL (0.1-1.4); ABSOLUTE NEUT (AUTO) 3.2 10^3/uL (1.7-8.2); BASOPHILS % (AUTO) 0.7 % (0-2); EOSINOPHILS % (AUTO) 2.9 % (0-6); HEMATOCRIT 40.5 % (37.9-51.0); HGB HCT DIFFERENCE 1.5; LYMPHOCYTES % (AUTO) 25.2 % (13-45); MEAN CORPUSCULAR HEMOGLOBIN 32.7 pg (27.0-33.4); MEAN CORPUSCULAR HGB CONC 34.5 g/dL (32.0-36.0); MEAN CORPUSCULAR VOLUME 95 fl (80-97); MONOCYTES % (AUTO) 10.3 % (3-13); RED BLOOD COUNT 4.29 10^6/uL (4.35-5.55); RED CELL DISTRIBUTION WIDTH 13.3 % (11.5-14.0); SEGMENTED NEUTROPHILS % (AUTO) 60.9 % (42-78); WHITE BLOOD COUNT 5.2 10^3/uL (4.0-10.5)
[2017-07-20 11:35] LABS: ALANINE AMINOTRANSFERASE 50 U/L (21-72); ALKALINE PHOSPHATASE 88 U/L (38-126); ANION GAP 14 (5-19); ASPARTATE AMINO TRANSFERASE 39 U/L (17-59); BILIRUBIN,DIRECT 0.4 mg/dL (0.0-0.4); BILIRUBIN,TOTAL 0.6 mg/dL (0.2-1.3); BLOOD UREA NITROGEN 13 mg/dL (7-20); CALCIUM 9.9 mg/dL (8.4-10.2); CARBON DIOXIDE 24 mmol/L (22-30); CHLORIDE 102 mmol/L (98-107); CREATINE KINASE 65 U/L (55-170); CREATININE RESULT 0.82 mg/dL (0.52-1.25); GLUCOSE 320 mg/dL (75-110); LIPASE 808.8 U/L (23-300); SODIUM 140.1 mmol/L (137-145)
[2017-07-20 11:44] LABS: CREATINE KINASE MB 0.66 ng/mL (<4.55)
[2017-07-20 11:45] LABS: TROPONIN I < 0.012 ng/mL
[2017-07-20 13:17] VITALS: BP 142/86
--- NOTE | 2017-07-20 21:05 | EKG REPORT ---
SEVERITY:- OTHERWISE NORMAL ECG - SINUS TACHYCARDIA : Confirmed by: Cinthya Velez MD 20-Jul-2017 21:04:22
== END 2017-07-20 13:18 | disposition home or self-care (01) ==
LOC: ER 10:19
DX: R10.10 Upper abdominal pain, unspecified (principal); K86.1 Other chronic pancreatitis; E66.01 Morbid (severe) obesity due to excess calories; Z68.35 Body mass index [BMI] 35.0-35.9, adult; E11.65 Type 2 diabetes mellitus with hyperglycemia; I10 Essential (primary) hypertension; F17.210 Nicotine dependence, cigarettes, uncomplicated; E78.00 Pure hypercholesterolemia, unspecified; Z90.49 Acquired absence of other specified parts of digestive tract; Z86.718 Personal history of other venous thrombosis and embolism; Z86.711 Personal history of pulmonary embolism; Z91.041 Radiographic dye allergy status
CPT/HCPCS: 93005; 96376; 99284; 96374; 96375; 36415; 82553; 82550; 83690; 85025; 85610; 80053; 84484; 93010; J2270; J2405; J7030

== ENCOUNTER 2017-07-20 20:02 | Inpatient (IN) | payer MEDICARE, MEDICAID ==
[2017-07-20] MEDS ORDERED: MORPHINE SULFATE 10 MG/ML INJ IV ONE (23:03)
[2017-07-20] MEDS ORDERED: ONDANSETRON HCL INJ/PF 4 MG/2 ML SDV IV ONE (23:03)
[2017-07-20] MEDS ORDERED: NORMAL SALINE 1000 ML 1,000 ML IV ONE (23:03)
--- NOTE | 2017-07-20 23:04 | ER Document Report ---
ED GI/ - General Mode of Arrival: Medic Information source: Patient TRAVEL OUTSIDE OF THE [place] IN LAST 30 DAYS: No <SONIA WELLS - Last Filed: 07/21/17 00:31> <CHRISTIANTIARA - Last Filed: 07/21/17 01:57> - General Chief Complaint: Abdominal Pain Stated Complaint: ABDOMINAL PAIN Time Seen by Provider: 07/20/17 22:52 Notes: Patient is a 47 year old male presenting to the emergency department for abdominal pain, vomiting, and diarrhea. Patient was seen in the ED earlier today for abdominal pain and found to have a Lipase of 809. Patient was discharged with Zofran, Phenergan, and Percocet to control his symptoms. Patient states that he went home and took these medications and his symptoms worsened. Patient states he vomited 2 and had an episode of diarrhea. According to EMS patient's blood glucose level was in the 300s. Patient does have a history of diabetes mellitus and states he takes 40 units of Lantus and janumet. Patient was admitted on 06/27/2017 for pancreatitis. Patient denies drinking any alcohol and states that he is a recovering alcoholic. PCP is Stefany Gilmore [facility] [place]. (SONIA WELLS) - Related Data Allergies/Adverse Reactions: Iodinated Contrast- Oral and IV Dye Allergy (Unknown, Verified 07/20/17 10:24) IV dye Allergy (Uncoded 07/20/17 10:24) Past Medical History - General Information source: Patient - Social History Smoking Status: Current Every Day Smoker Chew tobacco use (# tins/day): No Frequency of alcohol use: None Drug Abuse: None Family History: Reviewed & Not Pertinent, COPD Patient has suicidal ideation: No Patient has homicidal ideation: No - Past Medical History Cardiac Medical History: Reports: Hx DVT, Hx Heart Attack - States workup revealed pulmonary embolus., Hx Hypercholesterolemia, Hx Hypertension, Hx Pulmonary Embolism Denies: Hx Atrial Fibrillation, Hx Congestive Heart Failure, Hx Coronary Artery Disease Pulmonary Medical History: Reports: Hx Bronchitis, Hx Sleep Apnea - Noncompliant with uncomfortable mask. Denies: Hx Asthma, Hx COPD Neurological Medical History: Denies: Hx Seizures Endocrine Medical History: Reports: Hx Diabetes Mellitus Type 2. Denies: Hx Hyperthyroidism, Hx Hypothyroidism Renal/ Medical History: Denies: Hx Peritoneal Dialysis GI Medical History: Reports: Hx Gastroesophageal Reflux Disease. Denies: Hx Cirrhosis, Hx Hepatitis Musculoskeltal Medical History: Reports Hx Arthritis Psychiatric Medical History: Reports: Hx Bipolar Disorder, Hx Depression - personality disorder, anxiety, Hx Schizoaffective Disorder Infectious Medical History: Denies: Hx Hepatitis Past Surgical History: Reports: Hx Cholecystectomy, Hx Orthopedic Surgery - Immunizations Hx Diphtheria, Pertussis, Tetanus Vaccination: No <SONIA WELLS - Last Filed: 07/21/17 00:31> Review of Systems - Review of Systems Constitutional: No symptoms reported EENT: No symptoms reported Cardiovascular: No symptoms reported Respiratory: No symptoms reported Gastrointestinal: See HPI, Abdominal pain, Diarrhea, Nausea, Vomiting Genitourinary: No symptoms reported Male Genitourinary: No symptoms reported Musculoskeletal: No symptoms reported Skin: No symptoms reported Hematologic/Lymphatic: No symptoms reported Neurological/Psychological: No symptoms reported -: Yes All other systems reviewed and negative <SONIA WELLS - Last Filed: 07/21/17 00:31> Physical Exam - Vital signs Interpretation: Normal <SONIA WELLS - Last Filed: 07/21/17 00:31> <TIARA GONZALES - Last Filed: 07/21/17 01:57> - Vital signs Vitals: Temp Pulse Resp BP Pulse Ox 97.5 F 106 H 18 134/84 H 92 07/20/17 20:44 07/20/17 20:44 07/20/17 20:44 07/20/17 20:44 07/20/17 20:44 - Notes Notes: GENERAL: Alert, interacts well. Mild distress. HEAD: Normocephalic, atraumatic. EYES: Appear normal. Pupils equal, round, and reactive to light. ENT: Dry mucus membranes, tongue midline. NECK: Full range of motion. Supple. Trachea midline. LUNGS: Clear to auscultation bilaterally, no wheezes, rales, or rhonchi. No respiratory distress. HEART: Regular rate and rhythm. No murmurs, gallops, or rubs. ABDOMEN: Obese. Soft. Diffuse abdominal tenderness throughout but mostly tender in the epigastric region. Normal bowel sounds. EXTREMITIES: Moves all 4 extremities spontaneously. Normal strength. No edema. NEUROLOGICAL: Alert and oriented x3. Normal speech. No focal neurological deficits. GCS 15. PSYCH: Normal affect, normal mood. SKIN: Warm, dry, normal turgor. No rashes or lesions noted. (SONIA WELLS) Course - Laboratory Result Diagrams: 07/20/17 23:24 07/20/17 23:24 <SONIA WELLS - Last Filed: 07/21/17 00:31> - Laboratory Result Diagrams: 07/20/17 23:24 07/20/17 23:24 - EKG Interpretation by Me EKG shows normal: Sinus rhythm, [place], Intervals, QRS Complexes, ST-T Waves Rate: Normal - 86 Rhythm: NSR When compared to previous EKG there are: No significant change - Consults Dr. Nicole Time consulted: 00:22 Consulted provider: will come to ER - IMCU admit <TIARA GONZALES - Last Filed: 07/21/17 01:57> - Vital Signs Vital signs: Temp Pulse Resp BP Pulse Ox 97.5 F 106 H 23 H 131/91 H 92 07/20/17 20:44 07/20/17 20:44 07/21/17 01:51 07/21/17 01:51 07/21/17 01:51 - Laboratory Laboratory results interpreted by de: 07/20/17 07/20/17 07/20/17 23:24 23:24 23:24 RBC 4.25 L Plt Count 109 L Glucose 235 H Hemoglobin A1c % 11.2 H Magnesium 1.3 L Lipase 913.4 H 07/20/17 23:24 RBC Plt Count Glucose Hemoglobin A1c % Magnesium 1.3 L Lipase Discharge <SONIA WELLS - Last Filed: 07/21/17 00:31> - Discharge Admitting Provider: Hospitalist Unit Admitted: IMCU <TIARA GONZALES - Last Filed: 07/21/17 01:57> - Discharge Clinical Impression: Recurrent acute pancreatitis, Poorly controlled diabetes mellitus, Nausea, vomiting and diarrhea Condition: Stable Disposition: ADMITTED INPATIENT Scribe Attestation: 07/21/17 00:29 I personally performed the services described in the documentation, reviewed and edited the documentation which was dictated to the scribe in my presence, and it accurately records my words and actions. (TIARA GONZALES) Scribe Documentation - Scribe Written by Scribe:: Diamante Schneider 07/20/2017 23:52 acting as scribe for :: Christian <SONIA WELLS - Last Filed: 07/21/17 00:31>
[2017-07-20 23:58] LABS: ABSOLUTE EOSINOPHILS # (AUTO) 0.2 10^3/uL (0.0-0.6); ABSOLUTE LYMPHOCYTES (AUTO) 1.6 10^3/uL (0.5-4.7); ABSOLUTE MONOCYTES (AUTO) 0.6 10^3/uL (0.1-1.4); ABSOLUTE NEUT (AUTO) 3.2 10^3/uL (1.7-8.2); BASOPHILS % (AUTO) 0.7 % (0-2); EOSINOPHILS % (AUTO) 3.3 % (0-6); HEMATOCRIT 39.8 % (37.9-51.0); HEMOGLOBIN 13.8 g/dL (13.5-17.0); HGB HCT DIFFERENCE 1.6; LYMPHOCYTES % (AUTO) 28.3 % (13-45); MEAN CORPUSCULAR HEMOGLOBIN 32.6 pg (27.0-33.4); MEAN CORPUSCULAR HGB CONC 34.8 g/dL (32.0-36.0); MEAN CORPUSCULAR VOLUME 94 fl (80-97); MONOCYTES % (AUTO) 11.4 % (3-13); RED BLOOD COUNT 4.25 10^6/uL (4.35-5.55); RED CELL DISTRIBUTION WIDTH 13.5 % (11.5-14.0); SEGMENTED NEUTROPHILS % (AUTO) 56.3 % (42-78); WHITE BLOOD COUNT 5.7 10^3/uL (4.0-10.5)
[2017-07-21 00:05] LABS: ALANINE AMINOTRANSFERASE 58 U/L (21-72); ALKALINE PHOSPHATASE 81 U/L (38-126); ANION GAP 11 (5-19); ASPARTATE AMINO TRANSFERASE 53 U/L (17-59); BILIRUBIN,DIRECT 0.4 mg/dL (0.0-0.4); BILIRUBIN,TOTAL 0.7 mg/dL (0.2-1.3); BLOOD UREA NITROGEN 12 mg/dL (7-20); CALCIUM 10.2 mg/dL (8.4-10.2); CARBON DIOXIDE 26 mmol/L (22-30); CHLORIDE 101 mmol/L (98-107); CREATININE RESULT 0.84 mg/dL (0.52-1.25); GLUCOSE 235 mg/dL (75-110); LIPASE 913.4 U/L (23-300); MAGNESIUM 1.3 mg/dL (1.6-2.3); POTASSIUM 4.4 mmol/L (3.6-5.0); SODIUM 138.3 mmol/L (137-145); TOTAL PROTEIN 6.8 g/dL (6.3-8.2)
[2017-07-21 00:35] LABS: ADD ON TESTING BLD IN LAB ACKNOWLEDGE
[2017-07-21] MEDS: MAGNESIUM SULFATE/D5W 1 GM/100 ML RTUPB IV SCH ×2 (01:30→05:07)
[2017-07-21] MEDS ORDERED: ACETAMINOPHEN 325 MG TABLET PO PRN (01:45)
[2017-07-21] MEDS ORDERED: GLUCAGON,HUMAN RECOMB 1 MG INJ IM PRN (01:46)
[2017-07-21] MEDS ORDERED: DEXTROSE 50%-WATER 25 GM/50 ML DISP.SYRIN IV PRN ×2 (01:46)
[2017-07-21] MEDS ORDERED: DEXTROSE 40% GEL 15 GM TUBE PO PRN ×2 (01:46)
[2017-07-21] MEDS ORDERED: MAGNESIUM HYDROXIDE SUSP 30 ML UDCUP PO PRN (01:50)
[2017-07-21] MEDS ORDERED: NORMAL SALINE 1000 ML 1,000 ML IV PRN (01:50)
[2017-07-21 01:53] LABS: MAGNESIUM 1.3 mg/dL (1.6-2.3)
[2017-07-21 01:54] LABS: ALCOHOL < 10 mg/dL (NONE DETECTED)
[2017-07-21] MEDS ORDERED: INSULIN GLARGINE,HUM.REC.ANLOG 300 UNIT/3 ML INSULN.PEN SUBCUT ONE (02:00)
[2017-07-21] MEDS ORDERED: THIAMINE HCL INJ 200 MG/2 ML VIAL IV PRN (02:06)
[2017-07-21] MEDS ORDERED: NORMAL SALINE 1000 ML 1,000 ML IV ONE (02:15)
[2017-07-21] MEDS ORDERED: NICOTINE 7 MG/24 HR PATCH.TD24 TD PRN (02:17)
--- NOTE | 2017-07-21 02:17 | PDOC H&P ---
History of Present Illness Admission Date/PCP: 07/21/17 00:40 Stefany flores Patient complains of: Abdominal pain History of Present Illness: JERI TAYLOR is a 47 year old male with underlying obesity, diabetes mellitus types 1 & 2, and recurrent pancreatitis, perhaps secondary to history of alcohol abuse and ongoing alcohol use, who presents to the emergency room for evaluation of above complaint. Patient has been discussed with emergency room physician who evaluated the patient. Was actually seen in the emergency room earlier on 07/20/2017 for abdominal pain. Lipase reportedly of 809. Discharged with Zofran and Phenergan and Percocet. However, patient states he went home, and despite taking his medications, his symptoms worsen. Vomited 2, along with an episode of diarrhea, which not uncommonly accompanies his pancreatitis. Describes combination cramping and sharp epigastric pain radiating to his back. All in all, states this is quite typical of his episodes of pancreatitis. No fever chills or dysuria. No chest pain. Last alcohol use he states was 2 weeks ago, 2 beers. History of alcohol abuse in his 20s. Hospitalized on our service the second through the fourth of this month with discharge diagnoses including acute on chronic pancreatitis and uncontrolled type 2 diabetes mellitus. Discharge summary has been reviewed. Admitted to our service the of last month, with admission diagnoses including type 2 diabetes mellitus uncontrolled, and precordial chest pain. History and physical has been reviewed. Currently resting quietly, stating the abdominal pain is becoming a bit more noticeable now. Dictation via voice recognition software. Laboratory results are listed in [employer] and are reviewed. EKG reviewed. Social history/personal habits: . Adult son. Lives with girlfriend. On disability due to bipolar disorder. Dips snuff. No illicit drug use. Alcohol use as noted above. Allergies/adverse reactions are listed in [employer] and are reviewed. Home medications initially autopopulated into [employer] may not accurately reflect patient's true medications, dosages, and/or frequencies. radiation therapy technician to reconcile medications. Unfortunately, patient not certain of all medications/dosages/frequencies. REVIEW OF SYSTEMS: Constitutional: No fever or chills. Eyes: Wears glasses. ENT: No swallowing problems or complaints. Denies hearing loss. Pulmonary: No current complaints. Cardiovascular: No current complaints, including chest pain. Gastrointestinal: See history and present illness. Skin: No current complaints, including rashes. Hematologic: Easy bruising. Neurologic: No current complaints, including numbness or tingling. Musculoskeletal: Chronic back pain. Psychiatric: Anxiety and depression. Denies suicidal or homicidal ideation. Endocrine: No current complaints, including polyuria. Genitourinary: No current complaints, including dysuria. PHYSICAL EXAMINATION: Temperature 97.5. Blood pressure 138 134/79. Pulse 84 and regular. 93% saturation on room air. Respirations are 17 and unlabored. 5 feet 10 inches tall. 117.3 kg. BMI 37.1 kg/m. Obese somewhat chronically ill-appearing slightly disheveled male who appears not to feel very well. Awake alert and cooperative, however. Mildly anxious, without agitation. Skin is warm and dry. No grossly obvious evidence of rash in areas of skin examined. No subcutaneous nodules palpated. ENT: Hearing grossly normal to normal conversation. Tongue midline on protrusion pink and slightly tacky. Eyes: No scleral icterus. Pupils equal and reactive to light at 4 mm. [place] conjunctivae. Neck is supple and nontender to gentle active range of motion and palpation. Midline trachea. No palpable thyroid nodule mass enlargement or tenderness. Lymphatic: No palpable cervical or clavicular nodes. Neck and lymphatic exams limited by patient body habitus. Psychiatric: Reasonable insight into acute and chronic medical issues. Oriented to time location and why here. Lungs: Auscultation reveals clear and equal breath sounds bilaterally. No use of accessory respiratory muscles. Cardiovascular: Heart regular rate and rhythm, without gallop murmur or rub. No carotid or abdominal aortic bruits. No ankle or pedal edema. Palpable dorsalis pedis pulses. Abdomen:soft somewhat distended nontender in the lower abdomen with positive bowel sounds. Very mild epigastric discomfort to palpation, certainly without evidence of guarding or peritoneal signs. Unable to adequately evaluate abdomen for masses or organomegaly due to distention and discomfort. Extremities: Feet are warm and dry. No calf tenderness to compression. No grossly obvious visual evidence of calf swelling. Gentle manipulation of lower extremities fails to reveal any obvious evidence of injury or instability to knees hips or ankles. Neurologic: Moves upper extremities grossly normally. Patellar reflexes absent. Absent Babinski. Light touch is intact at feet. Dorsiflexion and plantarflexion of feet 5 / 5 and symmetric. Past Medical History Cardiac Medical History: Reports: DVT, Hyperlipidema, Hypertension, Pulmonary Embolism Denies: Atrial Fibrillation, Congestive Heart Failure, Coronary Artery Disease, Myocardial Infarction Pulmonary Medical History: Reports: Bronchitis, Sleep Apnea - Noncompliant with uncomfortable mask. Denies: Asthma, Chronic Obstructive Pulmonary Disease (COPD) EENT Medical History: Reports: Eyes - Wears glasses Denies: Ears, Throat Neurological Medical History: Denies: Hemorrhagic CVA, Ischemic CVA, Seizures Endocrine Medical History: Reports: Diabetes Mellitus Type 1 - Now has a functioning glucometer, Diabetes Mellitus Type 2 Denies: Hyperthyroidism, Hypothyroidism Renal/ Medical History: Reports: None GI Medical History: Reports: Gastroesophageal Reflux Disease Denies: Cirrhosis, Hepatitis, Peptic Ulcer Disease Musculoskeltal Medical History: Reports: Arthritis Skin Medical History: Reports: None Psychiatric Medical History: Reports: Bipolar Disorder, Depression - personality disorder, General Anxiety Disorder, Schizoaffective Disorder, Tobacco Dependency Hematology: Reports: Other - Easy bruising Infectious Medical History: Denies: Hepatitis B, Hepatitis C Past Surgical History Past Surgical History: Reports: Cholecystectomy, Orthopedic Surgery Social History Information Source: Patient, Emergency Med Personnel, [facility] Records Lives with: Friend Smoking Status: Current Every Day Smoker Frequency of Alcohol Use: Occasional - History of alcohol abuse in his 20s. Hx Recreational Drug Use: No Drugs: None Hx Prescription Drug Abuse: No - Advance Directive Resuscitation Status: Full Code Surrogate healthcare decision maker:: Girlfriend Emilia Deras Family History Family History: COPD Parental Family History Reviewed: Yes - Mother alive with coronary artery disease. Father of an VT. Children Family History Reviewed: Yes - Healthy Sibling(s) Family History Reviewed.: Yes - Half brother healthy Medication/Allergy Home Medications: RX: Duloxetine HCl [Cymbalta] 90 mg PO DAILY 07/21/17 RX: Esomeprazole Magnesium [Nexium] 40 mg PO QAM 07/21/17 RX: Fenofibrate Nanocrystallized [Tricor 145 mg Tablet] 145 mg PO DAILY RX: Insulin Glargine,Hum.rec.anlog [Lantus Solostar] 40 unit SQ QHS 07/21/17 RX: Lisinopril [Prinivil 2.5 mg Tablet] 2.5 mg PO DAILY 07/21/17 RX: Prazosin HCl [Minipress] 3 mg PO QHS 07/21/17 RX: Quetiapine Fumarate [Seroquel] 400 mg PO QHS 07/21/17 RX: Simvastatin [Zocor 20 mg Tablet] 20 mg PO QHS 07/21/17 RX: Sitagliptin Phos/Metformin HCl [Janumet Xr 100-1,000 mg Tablet] 1 each PO QAM 07/21/17 RX: Oxycodone HCl [Oxy-Ir 5 mg Tablet] 5 mg PO Q6HP PRN #12 tablet 07/24/17 Allergies/Adverse Reactions: Iodinated Contrast- Oral and IV Dye Allergy (Unknown, Verified 07/20/17 10:24) IV dye Allergy (Uncoded 07/20/17 10:24) Physical Exam Vital Signs: Temp Pulse Resp BP Pulse Ox 97.5 F 106 H 23 H 131/91 H 92 07/20/17 20:44 07/20/17 20:44 07/21/17 01:51 07/21/17 01:51 07/21/17 01:51 Assessment & Plan - Diagnosis (1) Diabetes mellitus type 1 Qualifiers: Diabetes mellitus complication status: without complication Qualified Code( s): E10.9 - Type 1 diabetes mellitus without complications Is this a current diagnosis for this admission?: Yes Plan: Accu-Cheks with appropriate sliding scale coverage. Resume home medications as appropriate once these have been determined and reviewed. (2) Diabetes mellitus type 2 in obese Is this a current diagnosis for this admission?: Yes (3) Thrombocytopenia Is this a current diagnosis for this admission?: Yes Plan: Suspect due to prior alcohol abuse. Will necessitate holding Lovenox and heparin at this point in time. (4) Acute on chronic pancreatitis Is this a current diagnosis for this admission?: Yes Plan: Suspect at least partly due to ongoing alcohol use; strongly encouraged patient to completely stop alcohol intake, with rationale for same discussed. Bowel rest. Ice chips only. IV fluid. Pain control. Lipid panel. I have strongly encouraged patient not to get out of bed without notifying staff , to avoid a fall with injury. Impression and plans were discussed with patient, who concurs. Time spent in evaluation and management of patient: 58 minutes. (5) Hypertension Qualifiers: Hypertension type: essential hypertension Qualified Code(s): I10 - Essential (primary) hypertension Is this a current diagnosis for this admission?: Yes Plan: Resume home medications as appropriate once these have been determined and reviewed. (6) SHENA (obstructive sleep apnea) Is this a current diagnosis for this admission?: Yes Plan: CPAP nightly (7) Bipolar disorder Qualifiers: Active/Remission status: remission status unspecified Qualified Code(s): F31.9 - Bipolar disorder, unspecified Is this a current diagnosis for this admission?: Yes Plan: Resume home medications as appropriate once these have been determined and reviewed. (8) Hypomagnesemia Is this a current diagnosis for this admission?: Yes Plan: Magnesium replacement with follow-up level. (9) Alcohol use Is this a current diagnosis for this admission?: Yes Plan: Parenteral thiamine now; daily banana bag thereafter. Observe for signs of alcohol withdrawal; none at present. - Time Time Spent: 50 to 70 Minutes Medications reviewed and adjusted accordingly: Yes - Patient not sure of all medications. Lantus discussed. Anticipated discharge: Home Within: within 72 hours - Inpatient Certification Based on my medical assessment, after consideration of the patient's comorbidities, presenting symptoms, or acuity I expect that the services needed warrant INPATIENT care.: Yes I certify that my determination is in accordance with my understanding of Medicare's requirements for reasonable and necessary INPATIENT services [42 CFR 412.3e].: Yes Medical Necessity: Need Close Monitoring Due to Risk of Patient Decompensation, Need For IV Fluids, Need for Pain Control, Risk of Complication if Not Cared For in Hospital Post Hospital Care: D/C or Transfer Summary
[2017-07-21] MEDS ORDERED: THIAMINE HCL 100 MG in NORMAL SALINE 50 ML IV ONE (02:30)
[2017-07-21 02:51] LABS: APPEARANCE,URINE CLEAR; BILIRUBIN,URINE NEGATIVE (NEGATIVE); GLUCOSE, URINE 150 mg/dL (NEGATIVE); KETONES,URINE NEGATIVE (NEGATIVE); LEUKOCYTE ESTERASE,URINE NEGATIVE (NEGATIVE); NITRITE,URINE NEGATIVE (NEGATIVE); PROTEIN,URINE NEGATIVE (NEGATIVE); URINE SPECIFIC GRAVITY 1.012; UROBILINOGEN,URINE NEGATIVE mg/dL (<2.0)
[2017-07-21 03:27] LABS: URINE BARBITURATES SCREEN NEGATIVE; URINE METHADONE SCREEN NEGATIVE; URINE OPIATES LOW UNCONFIRMED POSITIVE; URINE PHENCYCLIDINE SCREEN NEGATIVE
[2017-07-21] MEDS: MORPHINE SULFATE 10 MG/ML INJ IV PRN ×7 (04:33→22:17)
[2017-07-21] MEDS: PROMETHAZINE HCL INJ 25 MG/1 ML VIAL IV PRN ×2 (04:33→10:53)
[2017-07-21 06:41] LABS: ABSOLUTE EOSINOPHILS # (AUTO) 0.2 10^3/uL (0.0-0.6); ABSOLUTE LYMPHOCYTES (AUTO) 1.6 10^3/uL (0.5-4.7); ABSOLUTE MONOCYTES (AUTO) 0.7 10^3/uL (0.1-1.4); BASOPHILS % (AUTO) 0.5 % (0-2); EOSINOPHILS % (AUTO) 3.2 % (0-6); HEMOGLOBIN 13.8 g/dL (13.5-17.0); HGB HCT DIFFERENCE 2.4; LYMPHOCYTES % (AUTO) 28.7 % (13-45); MEAN CORPUSCULAR HEMOGLOBIN 33.1 pg (27.0-33.4); MEAN CORPUSCULAR HGB CONC 35.4 g/dL (32.0-36.0); MEAN CORPUSCULAR VOLUME 93 fl (80-97); MONOCYTES % (AUTO) 11.9 % (3-13); RED BLOOD COUNT 4.18 10^6/uL (4.35-5.55); RED CELL DISTRIBUTION WIDTH 13.3 % (11.5-14.0); SEGMENTED NEUTROPHILS % (AUTO) 55.7 % (42-78); WHITE BLOOD COUNT 5.4 10^3/uL (4.0-10.5)
[2017-07-21] MEDS: INSULIN LISPRO 100 UNIT/ML 3 ML VIAL SUBCUT PRN (06:47)
[2017-07-21 06:53] LABS: ANION GAP 9 (5-19); BLOOD UREA NITROGEN 10 mg/dL (7-20); CALCIUM 9.6 mg/dL (8.4-10.2); CARBON DIOXIDE 28 mmol/L (22-30); CHLORIDE 103 mmol/L (98-107); CREATININE RESULT 0.85 mg/dL (0.52-1.25); GLUCOSE 187 mg/dL (75-110); MAGNESIUM 1.6 mg/dL (1.6-2.3); POTASSIUM 4.1 mmol/L (3.6-5.0); SODIUM 140.1 mmol/L (137-145)
[2017-07-21] MEDS ORDERED: MAGNESIUM SULFATE/D5W 1 GM/100 ML RTUPB IV ONE (08:00)
--- NOTE | 2017-07-21 11:43 | PDOC PROGRESS REPORT ---
Subjective Progress Note for:: 07/21/17 Subjective:: The patient is a 47-year-old obese male with known pancreatitis. He was admitted to the hospital with increasing abdominal pain and was found to have an elevated lipase and evidence of pancreatitis. He was made n.p.o. and started on aggressive IV fluids. This morning when I saw the patient he is resting in the bed. He states he really is not feeling much better since he came into the hospital. He continues to have pain and has been receiving IV morphine on a regular basis. He states the morphine is adequately controlling his pain. He states that he has had no nausea or vomiting. No fever or chills. He states the pain radiates into his back. He has not yet had a bowel movement this morning. He does complain of urinary frequency due to the IV fluids but has no dysuria or hematuria. Physical Exam Vital Signs: Temp Pulse Resp BP Pulse Ox 97.9 F 81 18 122/72 92 07/21/17 08:38 07/21/17 08:38 07/21/17 08:38 07/21/17 08:38 07/21/17 08:38 Intake & Output 07/20/17 07/21/17 07/22/17 06:59 06:59 06:59 Intake Total 350 Output Total 0 Balance 350 Weight 117.3 kg General appearance: PRESENT: no acute distress, obese, other - He looks his up he does not feel well Head exam: PRESENT: atraumatic, normocephalic Eye exam: PRESENT: conjunctiva pink, EOMI, PERRLA. ABSENT: scleral icterus Mouth exam: PRESENT: moist, tongue midline Teeth exam: PRESENT: poor dentation Respiratory exam: PRESENT: clear to auscultation rosy. ABSENT: rales, rhonchi, wheezes Cardiovascular exam: PRESENT: RRR. ABSENT: diastolic murmur, rubs, systolic murmur Pulses: PRESENT: normal dorsalis pedis pul GI/Abdominal exam: PRESENT: guarding, normal bowel sounds, soft, tenderness. ABSENT: rebound, rigid Rectal exam: PRESENT: deferred Extremities exam: PRESENT: full ROM. ABSENT: calf tenderness, clubbing, pedal edema Neurological exam: PRESENT: alert, awake, oriented to person, oriented to place , oriented to time, oriented to situation, CN II-XII grossly intact. ABSENT: motor sensory deficit Psychiatric exam: PRESENT: appropriate affect, normal mood. ABSENT: homicidal ideation, suicidal ideation Skin exam: PRESENT: dry, intact, warm. ABSENT: cyanosis, rash Results Laboratory Results: 07/21/17 06:32 07/21/17 06:32 07/21/17 07/21/17 07/21/17 02:24 06:32 06:32 WBC 5.4 RBC 4.18 L Hgb 13.8 Hct 39.0 MCV 93 MCH 33.1 MCHC 35.4 RDW 13.3 Plt Count 104 L Seg Neutrophils % 55.7 Lymphocytes % 28.7 Monocytes % 11.9 Eosinophils % 3.2 Basophils % 0.5 Absolute Neutrophils 3.0 Absolute Lymphocytes 1.6 Absolute Monocytes 0.7 Absolute Eosinophils 0.2 Absolute Basophils 0.0 Sodium 140.1 Potassium 4.1 Chloride 103 Carbon Dioxide 28 Anion Gap 9 BUN 10 Creatinine 0.85 Est GFR ( Amer) > 60 Est GFR (Non-Af Amer) > 60 Glucose 187 H Calcium 9.6 Magnesium 1.6 Urine Color YELLOW Urine Appearance CLEAR Urine pH 5.0 Ur Specific [place] 1.012 Urine Protein NEGATIVE Urine Glucose (UA) 150 H Urine Ketones NEGATIVE Urine Blood NEGATIVE Urine Nitrite NEGATIVE Ur Leukocyte Esterase NEGATIVE Urine WBC (Auto) 0 Urine RBC (Auto) 0 Assessment & Plan - Diagnosis (1) Acute on chronic pancreatitis Is this a current diagnosis for this admission?: Yes Plan: Today the patient will remain n.p.o. He will continue current IV fluids. He has IV morphine available every 2 hours and this is adequately controlling his pain. (2) Uncontrolled diabetes mellitus Plan: The patient has a hemoglobin A1c of 11.2. We will try to get his blood sugar under better when he is able to eat we will get the clinical dietitian to see him control here in the hospital as well. (3) Alcohol use disorder Plan: The patient states that he has been trying hard to cut back on his alcohol use. He states his last drink was 2 weeks ago. He has been counseled regarding absolute abstinence in light of his pancreatitis. (4) Obesity (BMI 30-39.9) Plan: Dietary discretion is advised. Certainly this would help get his blood sugar under better control as well. (5) Thrombocytopenia Is this a current diagnosis for this admission?: Yes Plan: Likely due to his alcohol use. He will have a CBC drawn in the morning. (6) SHENA (obstructive sleep apnea) Is this a current diagnosis for this admission?: Yes Plan: We will have respiratory therapy set him up with CPAP at night. (7) Bipolar disorder Qualifiers: Active/Remission status: remission status unspecified Qualified Code(s): F31.9 - Bipolar disorder, unspecified Is this a current diagnosis for this admission?: Yes Plan: He will continue his home regimen. He will be able to take pills with a sip of water. (8) Hypomagnesemia Is this a current diagnosis for this admission?: Yes Plan: Repleted. He will have a level drawn in the morning. - Time Time Spent with patient: 25-34 minutes - Inpatient Certification Medical Necessity: Need For IV Fluids - Inpatient hospitalization remains necessary. The patient has acute on chronic pancreatitis. Currently he is n.p.o. and unable to tolerate p.o. intake. He is requiring aggressive fluid hydration. He was treated in the ER and sent home and failed outpatient management prompting this hospitalization. I suspect he will be in the hospital for several more days.
--- NOTE | 2017-07-21 16:46 | EKG REPORT ---
SEVERITY:- NORMAL ECG - SINUS RHYTHM : Confirmed by: Cinthya Velez MD 21-Jul-2017 16:46:03
[2017-07-21] MEDS: NORMAL SALINE 1000 ML 1,000 ML with THIAMINE HCL 100 MG, MVI, ADULT NO.1 WITH VIT K 10 ... IV SCH ×4 (17:08)
[2017-07-21] MEDS ORDERED: INSULIN GLARGINE,HUM.REC.ANLOG 300 UNIT/3 ML INSULN.PEN SUBCUT SCH ×2 (22:00)
[2017-07-21] MEDS: INSULIN GLARGINE,HUM.REC.ANLOG 300 UNIT/3 ML INSULN.PEN SUBCUT SCH (22:49)
[2017-07-22] MEDS: MORPHINE SULFATE 10 MG/ML INJ IV PRN ×3 (02:19→08:00)
[2017-07-22] MEDS: PROMETHAZINE HCL INJ 25 MG/1 ML VIAL IV PRN ×3 (02:29→20:14)
[2017-07-22 08:17] LABS: ABSOLUTE BASOPHILS # (AUTO) 0.1 10^3/uL (0.0-0.2); ABSOLUTE EOSINOPHILS # (AUTO) 0.3 10^3/uL (0.0-0.6); ABSOLUTE LYMPHOCYTES (AUTO) 1.4 10^3/uL (0.5-4.7); ABSOLUTE MONOCYTES (AUTO) 0.9 10^3/uL (0.1-1.4); ABSOLUTE NEUT (AUTO) 5.5 10^3/uL (1.7-8.2); HEMATOCRIT 40.1 % (37.9-51.0); HEMOGLOBIN 13.9 g/dL (13.5-17.0); HGB HCT DIFFERENCE 1.6; LYMPHOCYTES % (AUTO) 16.6 % (13-45); MEAN CORPUSCULAR HEMOGLOBIN 32.4 pg (27.0-33.4); MEAN CORPUSCULAR HGB CONC 34.7 g/dL (32.0-36.0); MEAN CORPUSCULAR VOLUME 94 fl (80-97); MONOCYTES % (AUTO) 11.2 % (3-13); RED BLOOD COUNT 4.28 10^6/uL (4.35-5.55); RED CELL DISTRIBUTION WIDTH 13.4 % (11.5-14.0); SEGMENTED NEUTROPHILS % (AUTO) 67.2 % (42-78); WHITE BLOOD COUNT 8.2 10^3/uL (4.0-10.5)
[2017-07-22] MEDS ORDERED: NORMAL SALINE 1000 ML 1,000 ML IV PRN (09:15)
--- NOTE | 2017-07-22 09:22 | PDOC PROGRESS REPORT ---
Subjective Progress Note for:: 07/22/17 Subjective:: This morning the patient states he had an episode of vomiting after taking his medications. He states that the pain in his upper abdomen is improving. He is quite nauseated this morning. He has had no fever or chills overnight. No chest discomfort but feels as if he is having some heartburn. He has not yet had a bowel movement. He denies dysuria, frequency or hematuria. Physical Exam Vital Signs: Temp Pulse Resp BP Pulse Ox 97.3 F 90 18 140/85 H 96 07/22/17 08:16 07/22/17 08:16 07/22/17 08:16 07/22/17 08:16 07/22/17 08:16 Intake & Output 07/21/17 07/22/17 07/23/17 06:59 06:59 06:59 Intake Total 350 5720 Output Total 0 2900 Balance 350 2820 Weight 115.9 kg General appearance: PRESENT: no acute distress, well-developed, well-nourished Head exam: PRESENT: atraumatic, normocephalic Mouth exam: PRESENT: moist, tongue midline Respiratory exam: PRESENT: clear to auscultation rosy. ABSENT: rales, rhonchi, wheezes Cardiovascular exam: PRESENT: RRR. ABSENT: diastolic murmur, rubs, systolic murmur GI/Abdominal exam: PRESENT: normal bowel sounds, soft, tenderness, other - Abdomen is less tender than it was yesterday.. ABSENT: distended, guarding, rebound, rigid Rectal exam: PRESENT: deferred Extremities exam: PRESENT: full ROM. ABSENT: calf tenderness, clubbing, pedal edema Neurological exam: PRESENT: alert, awake, oriented to person, oriented to place , oriented to time, oriented to situation, CN II-XII grossly intact. ABSENT: motor sensory deficit Psychiatric exam: PRESENT: appropriate affect, normal mood. ABSENT: homicidal ideation, suicidal ideation Skin exam: PRESENT: dry, intact, warm. ABSENT: cyanosis, rash Results Laboratory Results: 07/22/17 07:57 07/22/17 07:57 07/22/17 07/22/17 07:57 07:57 WBC 8.2 RBC 4.28 L Hgb 13.9 Hct 40.1 MCV 94 MCH 32.4 MCHC 34.7 RDW 13.4 Plt Count 112 L Seg Neutrophils % 67.2 Lymphocytes % 16.6 Monocytes % 11.2 Eosinophils % 4.0 Basophils % 1.0 Absolute Neutrophils 5.5 Absolute Lymphocytes 1.4 Absolute Monocytes 0.9 Absolute Eosinophils 0.3 Absolute Basophils 0.1 Sodium Cancelled Potassium Cancelled Chloride Cancelled Carbon Dioxide Cancelled Anion Gap Cancelled BUN Cancelled Creatinine Cancelled Est GFR ( Amer) Cancelled Est GFR (Non-Af Amer) Cancelled Glucose Cancelled Calcium Cancelled Magnesium Cancelled Total Bilirubin Cancelled AST Cancelled ALT Cancelled Alkaline Phosphatase Cancelled Total Protein Cancelled Albumin Cancelled Lipase Cancelled Assessment & Plan - Diagnosis (1) Acute on chronic pancreatitis Is this a current diagnosis for this admission?: Yes Plan: Improving. I believe the patient was nauseated this morning because he took his medication on an empty stomach. At lunchtime today we will start him on a clear liquid diet. I will also provide p.o. oxycodone for him to take and change the IV morphine to severe pain only. He will continue aggressive IV fluids however I will change the rate to 125 mL's an hour. We will just have to watch him quite closely for signs of volume overload. (2) Acute respiratory failure with hypoxia Plan: The patient's oxygen saturations dropped into the mid to upper 80s yesterday evening and he has been placed on 2 L of oxygen and his oxygen saturations are currently stable in the low 90s. I am going to obtain a chest x-ray and a BNP. He has been receiving aggressive IV fluids and he could have some volume overload. If he shows evidence of vascular congestion I will give him a little bit of Lasix and obtain a 2D echocardiogram for further evaluation. I would not be surprised due to this patient's long-standing, uncontrolled diabetes if he did not have diastolic dysfunction. (3) Uncontrolled diabetes mellitus Plan: The patient has a hemoglobin A1c of 11.2. I spoke to him and his partner today and they have very little insight into a proper diet or even how to best manage his blood sugar. The girlfriend has been checking it at home occasionally but she states that she has been sick for quite a while and it is not been checked. She states it is always above 300. I am going to get the clinical dietitian as well as the diabetes nurse educator to see the patient today. For now his blood sugars seem to be adequately controlled on Lantus 40 units daily with sliding scale coverage. The patient is not yet eating so we may need to add some mealtime coverage as we go along. (4) Alcohol use disorder Plan: The patient states that he has been trying hard to cut back on his alcohol use. He states his last drink was 2 weeks ago. He has been counseled regarding absolute abstinence in light of his pancreatitis. (5) Obesity (BMI 30-39.9) Plan: Dietary discretion is advised. Certainly this would help get his blood sugar under better control as well. Again the dietitian and diabetic nurse educator will see the patient today. (6) Thrombocytopenia Is this a current diagnosis for this admission?: Yes Plan: Likely due to his alcohol use. He will have a CBC drawn in the morning. His level is somewhat improved today. (7) SHENA (obstructive sleep apnea) Is this a current diagnosis for this admission?: Yes Plan: We will have respiratory therapy set him up with CPAP at night. (8) Bipolar disorder Qualifiers: Active/Remission status: remission status unspecified Qualified Code(s): F31.9 - Bipolar disorder, unspecified Is this a current diagnosis for this admission?: Yes Plan: He will continue his home regimen. He will be able to take pills with a sip of water. (9) Hypomagnesemia Is this a current diagnosis for this admission?: Yes Plan: Repleted yesterday. He will have a level drawn in the morning. - Time Time Spent with patient: 25-34 minutes - Inpatient Certification Medical Necessity: Need For IV Fluids, Need for Pain Control - Inpatient hospitalization remains necessary. This gentleman has acute pancreatitis. He is still requiring parenteral fluids. We have not yet started him on a diet. He was nauseated requiring IV antiemetics this morning. We need to advance his diet and get his pain under better control prior to discharge.
[2017-07-22 10:23] LABS: ALANINE AMINOTRANSFERASE 126 U/L (21-72); ALKALINE PHOSPHATASE 120 U/L (38-126); ANION GAP 12 (5-19); ASPARTATE AMINO TRANSFERASE 165 U/L (17-59); BILIRUBIN,DIRECT 0.6 mg/dL (0.0-0.4); BILIRUBIN,TOTAL 1.2 mg/dL (0.2-1.3); BLOOD UREA NITROGEN 9 mg/dL (7-20); CALCIUM 9.3 mg/dL (8.4-10.2); CARBON DIOXIDE 24 mmol/L (22-30); CHLORIDE 103 mmol/L (98-107); CREATININE RESULT 0.77 mg/dL (0.52-1.25); GLUCOSE 165 mg/dL (75-110); LIPASE 436.1 U/L (23-300); MAGNESIUM 1.3 mg/dL (1.6-2.3); POTASSIUM 4.5 mmol/L (3.6-5.0); TOTAL PROTEIN 6.9 g/dL (6.3-8.2)
--- NOTE | 2017-07-22 10:29 | RADIOLOGY REPORT (SQ) ---
EXAM DESCRIPTION: CHEST PA/LAT COMPLETED DATE/TIME: 07/22/2017 10:21 am REASON FOR STUDY: sob, hypoxia, ? chf COMPARISON: None. EXAM PARAMETERS: NUMBER OF VIEWS: two views TECHNIQUE: Digital Frontal and Lateral radiographic views of the chest acquired. RADIATION DOSE: NA LIMITATIONS: none FINDINGS: LUNGS AND PLEURA: No opacities, masses or pneumothorax. No pleural effusion. MEDIASTINUM AND HILAR STRUCTURES: No masses or contour abnormalities. HEART AND VASCULAR STRUCTURES: Heart normal size. No evidence for failure. BONES: No acute findings. HARDWARE: None in the chest. OTHER: No other significant finding. IMPRESSION: NO SIGNIFICANT RADIOGRAPHIC FINDING IN THE CHEST. TECHNICAL DOCUMENTATION: JOB ID: [id number] [employer]- All Rights Reserved
[2017-07-22] MEDS ORDERED: MORPHINE SULFATE 10 MG/ML INJ IV PRN (10:52)
[2017-07-22] MEDS: OXYCODONE HCL IR 5 MG TABLET PO PRN ×2 (12:53→21:36)
[2017-07-22] MEDS: INSULIN LISPRO 100 UNIT/ML 3 ML VIAL SUBCUT PRN ×2 (14:54→17:19)
[2017-07-22] MEDS: NORMAL SALINE 1000 ML 1,000 ML with THIAMINE HCL 100 MG, MVI, ADULT NO.1 WITH VIT K 10 ... IV SCH ×4 (17:20)
[2017-07-22] MEDS: INSULIN GLARGINE,HUM.REC.ANLOG 300 UNIT/3 ML INSULN.PEN SUBCUT SCH (21:36)
[2017-07-22] MEDS ORDERED: INSULIN LISPRO 100 UNIT/ML 3 ML VIAL SUBCUT PRN (22:53)
[2017-07-23 05:19] LABS: ABSOLUTE EOSINOPHILS # (AUTO) 0.4 10^3/uL (0.0-0.6); ABSOLUTE LYMPHOCYTES (AUTO) 1.3 10^3/uL (0.5-4.7); ABSOLUTE MONOCYTES (AUTO) 0.6 10^3/uL (0.1-1.4); BASOPHILS % (AUTO) 0.3 % (0-2); EOSINOPHILS % (AUTO) 6.7 % (0-6); HEMATOCRIT 38.9 % (37.9-51.0); HEMOGLOBIN 13.6 g/dL (13.5-17.0); HGB HCT DIFFERENCE 1.9; LYMPHOCYTES % (AUTO) 24.6 % (13-45); MEAN CORPUSCULAR HEMOGLOBIN 32.7 pg (27.0-33.4); MEAN CORPUSCULAR HGB CONC 34.9 g/dL (32.0-36.0); MEAN CORPUSCULAR VOLUME 94 fl (80-97); MONOCYTES % (AUTO) 10.8 % (3-13); RED BLOOD COUNT 4.14 10^6/uL (4.35-5.55); RED CELL DISTRIBUTION WIDTH 13.5 % (11.5-14.0); SEGMENTED NEUTROPHILS % (AUTO) 57.6 % (42-78); WHITE BLOOD COUNT 5.2 10^3/uL (4.0-10.5)
[2017-07-23 05:45] LABS: ALANINE AMINOTRANSFERASE 94 U/L (21-72); ALBUMIN 3.5 g/dL (3.5-5.0); ALKALINE PHOSPHATASE 98 U/L (38-126); ANION GAP 9 (5-19); ASPARTATE AMINO TRANSFERASE 74 U/L (17-59); BILIRUBIN,DIRECT 0.5 mg/dL (0.0-0.4); BILIRUBIN,TOTAL 0.8 mg/dL (0.2-1.3); BLOOD UREA NITROGEN 8 mg/dL (7-20); CALCIUM 8.9 mg/dL (8.4-10.2); CARBON DIOXIDE 27 mmol/L (22-30); CHLORIDE 106 mmol/L (98-107); CREATININE RESULT 0.74 mg/dL (0.52-1.25); GLUCOSE 190 mg/dL (75-110); LIPASE 544.3 U/L (23-300); MAGNESIUM 1.3 mg/dL (1.6-2.3); SODIUM 142.4 mmol/L (137-145); TOTAL PROTEIN 6.1 g/dL (6.3-8.2)
[2017-07-23] MEDS ORDERED: FUROSEMIDE INJ/PF 20 MG/2 ML SDV IV ONE (08:00)
[2017-07-23] MEDS ORDERED: FUROSEMIDE INJ/PF 40 MG/4 ML SDV IV ONE (08:15)
[2017-07-23 08:38] LABS: HEMATOCRIT 39.7 % (37.9-51.0); HEMOGLOBIN 13.7 g/dL (13.5-17.0); HGB HCT DIFFERENCE 1.4; MEAN CORPUSCULAR HEMOGLOBIN 32.7 pg (27.0-33.4); MEAN CORPUSCULAR HGB CONC 34.4 g/dL (32.0-36.0); MEAN CORPUSCULAR VOLUME 95 fl (80-97); RED BLOOD COUNT 4.19 10^6/uL (4.35-5.55); RED CELL DISTRIBUTION WIDTH 13.3 % (11.5-14.0); WHITE BLOOD COUNT 5.7 10^3/uL (4.0-10.5)
--- NOTE | 2017-07-23 09:20 | PDOC PROGRESS REPORT ---
Subjective Progress Note for:: 07/23/17 Subjective:: The patient is resting in his bed. He was changed to a full liquid diet this morning and was able to eat a little bit of his breakfast but he feels quite nauseated. He states his pain is a little improved and he is no longer requiring IV morphine. He is taking oxycodone on a regular basis. He denies fever or chills. He has had no chest pain. He remains a little short of breath and is still requiring oxygen this morning. he continues to have nausea but is had no vomiting. He still has some left upper quadrant abdominal pain but it is greatly improved since the time of admission. He has not had a bowel movement this morning. He states he has been urinating frequently since he was given Lasix this morning. Physical Exam Vital Signs: Temp Pulse Resp BP Pulse Ox 97.7 F 79 18 140/79 H 100 07/23/17 07:31 07/23/17 07:31 07/23/17 07:31 07/23/17 07:31 07/23/17 07:31 Intake & Output 07/22/17 07/23/17 07/24/17 06:59 06:59 06:59 Intake Total 5720 6418 Output Total 2900 3850 Balance 2820 2568 Weight 115.9 kg 116.9 kg General appearance: PRESENT: no acute distress, obese, well-developed, well- nourished, other - He is receiving oxygen via nasal cannula Head exam: PRESENT: atraumatic, normocephalic Mouth exam: PRESENT: moist, tongue midline Teeth exam: PRESENT: poor dentation Respiratory exam: PRESENT: clear to auscultation rosy. ABSENT: rales, rhonchi, wheezes Cardiovascular exam: PRESENT: RRR. 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 Rectal exam: PRESENT: deferred Extremities exam: PRESENT: full ROM. ABSENT: calf tenderness, clubbing, pedal edema Neurological exam: PRESENT: alert, awake, oriented to person, oriented to place , oriented to time, oriented to situation, CN II-XII grossly intact. ABSENT: motor sensory deficit Psychiatric exam: PRESENT: appropriate affect, normal mood. ABSENT: homicidal ideation, suicidal ideation Skin exam: PRESENT: dry, intact, warm. ABSENT: cyanosis, rash Results Laboratory Results: 07/23/17 07:45 07/23/17 04:17 07/22/17 07/23/17 07/23/17 09:39 04:17 04:17 WBC 5.2 RBC 4.14 L Hgb 13.6 Hct 38.9 MCV 94 MCH 32.7 MCHC 34.9 RDW 13.5 Plt Count 103 L Seg Neutrophils % 57.6 Lymphocytes % 24.6 Monocytes % 10.8 Eosinophils % 6.7 H Basophils % 0.3 Absolute Neutrophils 3.0 Absolute Lymphocytes 1.3 Absolute Monocytes 0.6 Absolute Eosinophils 0.4 Absolute Basophils 0.0 Sodium 139.0 142.4 Potassium 4.5 4.0 Chloride 103 106 Carbon Dioxide 24 27 Anion Gap 12 9 BUN 9 8 Creatinine 0.77 0.74 Est GFR ( Amer) > 60 > 60 Est GFR (Non-Af Amer) > 60 > 60 Glucose 165 H 190 H Calcium 9.3 8.9 Magnesium 1.3 L 1.3 L Total Bilirubin 1.2 0.8 AST 165 H 74 H ALT 126 H 94 H Alkaline Phosphatase 120 98 Total Protein 6.9 6.1 L Albumin 4.0 3.5 Lipase 436.1 H 544.3 H 07/23/17 07:45 WBC 5.7 RBC 4.19 L Hgb 13.7 Hct 39.7 MCV 95 MCH 32.7 MCHC 34.4 RDW 13.3 Plt Count 104 L Seg Neutrophils % Lymphocytes % Monocytes % Eosinophils % Basophils % Absolute Neutrophils Absolute Lymphocytes Absolute Monocytes Absolute Eosinophils Absolute Basophils Sodium Potassium Chloride Carbon Dioxide Anion Gap BUN Creatinine Est GFR ( Amer) Est GFR (Non-Af Amer) Glucose Calcium Magnesium Total Bilirubin AST ALT Alkaline Phosphatase Total Protein Albumin Lipase 07/22/17 09:39 NT-Pro-B Natriuret Pep 196 H Impressions: Chest X-Ray 07/22/17 00:00 IMPRESSION: NO SIGNIFICANT RADIOGRAPHIC FINDING IN THE CHEST. Assessment & Plan - Diagnosis (1) Acute on chronic pancreatitis Is this a current diagnosis for this admission?: Yes Plan: Improving. The patient is still a little tender in the left upper quadrant. He became nauseated with a full liquid diet today. We will keep him on a full liquid diet and not advance it further today. He will continue to have antiemetics available. Currently his pain is well controlled with oxycodone. (2) Acute respiratory failure with hypoxia Plan: He is still requiring oxygen this morning. He has an elevated BNP. The patient had a 2D echocardiogram. I suspect he has some diastolic dysfunction and is having a mild congestive heart failure exacerbation. He was given 1 dose of IV Lasix this morning. (3) Acute diastolic (congestive) heart failure Plan: Due to the patient's long-standing diabetes mellitus suspect he has diastolic congestive heart failure with some mild volume overload. He has a mildly elevated BNP. He received 40 mg of IV Lasix today. Hopefully we can get him weaned off his oxygen over the next 24 hours. (4) Uncontrolled diabetes mellitus Plan: The patient has a hemoglobin A1c of 11.2. He spoke to both the diabetes nurse educator and the clinical dietitian yesterday. When I asked him about this he did not remember. He certainly needs further education. When his diet is further advanced we will add some mealtime coverage to his regimen. (5) Alcohol use disorder Plan: The patient states that he has been trying hard to cut back on his alcohol use. He states his last drink was 2 weeks ago. He has been counseled regarding absolute abstinence in light of his pancreatitis. (6) Obesity (BMI 30-39.9) Plan: Dietary discretion is advised. Certainly this would help get his blood sugar under better control as well. He has already been seen by the diabetes nurse educator and the clinical dietitian. (7) Thrombocytopenia Is this a current diagnosis for this admission?: Yes Plan: Likely due to his alcohol use. He will have a CBC drawn in the morning. (8) SHENA (obstructive sleep apnea) Is this a current diagnosis for this admission?: Yes Plan: We will have respiratory therapy set him up with CPAP at night. (9) Bipolar disorder Qualifiers: Active/Remission status: remission status unspecified Qualified Code(s): F31.9 - Bipolar disorder, unspecified Is this a current diagnosis for this admission?: Yes Plan: He will continue his home regimen. (10) Hypomagnesemia Is this a current diagnosis for this admission?: Yes Plan: He will receive 3 g of magnesium sulfate today. He will have a magnesium level checked in the morning. - Time Time Spent with patient: 25-34 minutes - Inpatient Certification Medical Necessity: Need For IV Fluids, Other - Inpatient hospitalization remains necessary. I am having difficulty advancing the patient's diet. He is continuing to have nausea. He also is requiring oxygen and he was not oxygen dependent prior to this hospitalization. He needs to be diuresed with IV Lasix. Timing of disposition will be determined by his clinical course.
[2017-07-23] MEDS: PROMETHAZINE HCL INJ 25 MG/1 ML VIAL IV PRN ×2 (09:30→16:19)
[2017-07-23] MEDS: MAGNESIUM SULFATE/D5W 1 GM/100 ML RTUPB IV SCH ×3 (09:32→12:07)
[2017-07-23] MEDS ORDERED: MAGNESIUM HYDROXIDE SUSP 30 ML UDCUP PO PRN (11:30)
--- NOTE | 2017-07-23 12:19 | XCELERA REPORT ---
[address] [address] Transthoracic Echocardiogram Report Name: JERI TAYLOR Age: 47 yrs Gender: Male : 1970 Patient Status: Inpatient Patient Location: [address] [place] [address] Study Date: 07/23/2017 08:11 AM Height: 70 in Weight: 257 lb BSA: 2.3 m2 Procedure: A complete two-dimensional transthoracic echocardiogram was performed (2D, M-mode, spectral and color flow Doppler). The study was technically difficult with many images being suboptimal in quality. Reason For Study: elevated BNP Ordering Physician: TORRI ZEPEDA Performed By: Veronica Keating Interpretation Summary The study was technically difficult with many images being suboptimal in quality. The left ventricular ejection fraction is normal. Doppler measurements suggest pseudonormalized left ventricular relaxation, which is associated with grade II/IV or mild to moderate diastolic dysfunction Wall motion cannot be accurately commented on, but no definite regional wall motion abnormalities noted. The left ventricle is grossly normal size. There is normal left ventricular wall thickness. The right ventricle is mildly dilated. The right ventricular systolic function is normal. The right ventricle appears to be hypertrophied Borderline left atrial enlargement. The right atrium is normal. There is a trace amount of mitral regurgitation There is no mitral valve stenosis. No aortic regurgitation is present. There is no aortic valve stenosis There is a trace or physiologic amount of tricuspid regurgitation Tricuspid regurgitation jet envelope not well defined to measure RV systolic pressure accurately. The aortic root is not well visualized but is probably normal size. The inferior vena cava was not well visualized There is no pericardial effusion. MMode/2D Measurements & Calculations RVDd: 3.2 cm LVIDd: 4.3 cm FS: 35.1 % Ao root diam: 3.0 cm IVSd: 0.80 cm LVIDs: 2.8 cm EDV(Teich): 81.5 ml LVPWd: 0.80 cm ESV(Teich): 28.7 ml Ao root area: 7.2 cm2 EF(Teich): 64.8 % Doppler Measurements & Calculations MV E max jordyn: MV dec slope: Ao V2 max: LV V1 max P.8 cm/sec 126.8 cm/sec 3.7 mmHg MV A max jordyn: 381.7 cm/sec2 Ao max PG: LV V1 max: 56.1 cm/sec MV dec time: 6.4 mmHg 95.9 cm/sec MV E/A: 1.5 0.22 sec PA V2 max: TR max jordyn: 111.7 cm/sec 216.4 cm/sec PA max P.0 mmHgTR max P.7 mmHg Left Ventricle The left ventricle is grossly normal size. There is normal left ventricular wall thickness. The left ventricular ejection fraction is normal. Doppler measurements suggest pseudonormalized left ventricular relaxation, which is associated with grade II/IV or mild to moderate diastolic dysfunction. Wall motion cannot be accurately commented on, but no definite regional wall motion abnormalities noted. Right Ventricle The right ventricle is mildly dilated. The right ventricle appears to be hypertrophied. The right ventricular systolic function is normal. Atria The right atrium is normal. Borderline left atrial enlargement. Interarterial septum not well visualized and not well dopplered. Cannot comment on ASD/PFO presence. Mitral Valve The mitral valve is grossly normal. There is no mitral valve stenosis. There is a trace amount of mitral regurgitation. Aortic Valve The aortic valve is grossly normal. There is no aortic valve stenosis. No aortic regurgitation is present. Tricuspid Valve The tricuspid valve is not well visualized, but is grossly normal. There is no tricuspid stenosis. There is a trace or physiologic amount of tricuspid regurgitation. Tricuspid regurgitation jet envelope not well defined to measure RV systolic pressure accurately. Pulmonic Valve The pulmonic valve is not well visualized. Great Vessels The aortic root is not well visualized but is probably normal size. The inferior vena cava was not well visualized. Effusions There is no pericardial effusion. : TORRI ZEPEDA > Main [facility]w
[2017-07-23] MEDS: OXYCODONE HCL IR 5 MG TABLET PO PRN (16:19)
[2017-07-23] MEDS: NORMAL SALINE 1000 ML 1,000 ML with THIAMINE HCL 100 MG, MVI, ADULT NO.1 WITH VIT K 10 ... IV SCH ×4 (17:44)
[2017-07-23] MEDS: INSULIN LISPRO 100 UNIT/ML 3 ML VIAL SUBCUT PRN ×2 (17:44→21:51)
[2017-07-23] MEDS: INSULIN GLARGINE,HUM.REC.ANLOG 300 UNIT/3 ML INSULN.PEN SUBCUT SCH (21:51)
[2017-07-24 06:58] LABS: ALANINE AMINOTRANSFERASE 74 U/L (21-72); ALBUMIN 3.7 g/dL (3.5-5.0); ALKALINE PHOSPHATASE 101 U/L (38-126); ANION GAP 10 (5-19); ASPARTATE AMINO TRANSFERASE 45 U/L (17-59); BILIRUBIN,DIRECT 0.4 mg/dL (0.0-0.4); BILIRUBIN,TOTAL 0.7 mg/dL (0.2-1.3); BLOOD UREA NITROGEN 9 mg/dL (7-20); CALCIUM 9.5 mg/dL (8.4-10.2); CARBON DIOXIDE 29 mmol/L (22-30); CHLORIDE 103 mmol/L (98-107); CREATININE RESULT 0.76 mg/dL (0.52-1.25); GLUCOSE 196 mg/dL (75-110); LIPASE 451.2 U/L (23-300); MAGNESIUM 1.5 mg/dL (1.6-2.3); SODIUM 141.5 mmol/L (137-145); TOTAL PROTEIN 6.4 g/dL (6.3-8.2)
[2017-07-24] MEDS ORDERED: FUROSEMIDE INJ/PF 20 MG/2 ML SDV IV ONE (07:28)
[2017-07-24 07:43] LABS: HEMATOCRIT 40.7 % (37.9-51.0); HEMOGLOBIN 14.2 g/dL (13.5-17.0); HGB HCT DIFFERENCE 1.9; MEAN CORPUSCULAR HEMOGLOBIN 32.8 pg (27.0-33.4); MEAN CORPUSCULAR VOLUME 94 fl (80-97); RED BLOOD COUNT 4.34 10^6/uL (4.35-5.55); RED CELL DISTRIBUTION WIDTH 13.6 % (11.5-14.0); WHITE BLOOD COUNT 6.6 10^3/uL (4.0-10.5)
[2017-07-24] MEDS: INSULIN LISPRO 100 UNIT/ML 3 ML VIAL SUBCUT PRN ×2 (09:17→12:55)
--- NOTE | 2017-07-24 12:07 | PDOC DISCHARGE SUMMARY ---
General - Admit/Disc Date/PCP Admission Date/Primary Care Provider: 07/21/17 01:50 Dr. Jan Turner Discharge Date: 07/24/17 - Discharge Diagnosis (1) Acute on chronic pancreatitis Is this a current diagnosis for this admission?: Yes Summary: Resolving. The patient's diet is pending has been successfully advanced and he is requiring no pain medication at discharge. (2) Acute respiratory failure with hypoxia Summary: Secondary to mild diastolic congestive heart failure exacerbation. He received quite a bit of IV fluids. He was successfully diuresed and weaned off of oxygen prior to discharge. (3) Acute diastolic (congestive) heart failure Summary: Echocardiogram revealed grade 2 diastolic dysfunction. He was successfully diuresed and currently is euvolemic on the day of discharge. (4) Uncontrolled diabetes mellitus Summary: He has been seen by the diabetes nurse educator as well as the clinical dietitian. He will need close outpatient follow-up. (5) Alcohol use disorder Summary: Absolute abstinence is recommended. This is been explained to the patient and he is voiced understanding. (6) Obesity (BMI 30-39.9) Summary: Certainly he would benefit from weight loss. He has been seen by the clinical dietitian. (7) Thrombocytopenia Is this a current diagnosis for this admission?: Yes Summary: Somewhat improved. Likely due to his underlying alcohol use. (8) SHENA (obstructive sleep apnea) Is this a current diagnosis for this admission?: Yes Summary: Stable (9) Bipolar disorder Is this a current diagnosis for this admission?: Yes Summary: He will resume his home regimen. (10) Hypomagnesemia Is this a current diagnosis for this admission?: Yes Summary: Repleted - Additional Information Resuscitation Status: Full Code Discharge Activity: Activity As Tolerated, Balance Activity w/Rest, Slowly Increase Activity, Walk Frequently Home Medications: Duloxetine HCl [Cymbalta] 90 mg PO DAILY 07/21/17 Esomeprazole Magnesium [Nexium] 40 mg PO QAM 07/21/17 Fenofibrate Nanocrystallized [Tricor 145 mg Tablet] 145 mg PO DAILY 07/21/17 Insulin Glargine,Hum.rec.anlog [Lantus Solostar] 40 unit SQ QHS 07/21/17 Lisinopril [Prinivil 2.5 mg Tablet] 2.5 mg PO DAILY 07/21/17 Prazosin HCl [Minipress] 3 mg PO QHS 07/21/17 Quetiapine Fumarate [Seroquel] 400 mg PO QHS 07/21/17 Simvastatin [Zocor 20 mg Tablet] 20 mg PO QHS 07/21/17 Sitagliptin Phos/Metformin HCl [Janumet Xr 100-1,000 mg Tablet] 1 each PO QAM Oxycodone HCl [Oxy-Ir 5 mg Tablet] 5 mg PO Q6HP PRN #12 tablet 07/24/17 History of Present Illness History of Present Illness: JERI TAYLOR is a 47 year old male who presented to the emergency room with abdominal pain. Hospital Course Hospital Course: The patient is a 47-year-old obese male with known chronic pancreatitis. He was admitted to the hospital with increasing abdominal pain and nausea. He was found to have an elevated lipase and it was felt that he was having another episode of acute pancreatitis. He was admitted to the hospital and started on aggressive IV fluids. Over the next several days his abdominal pain slowly resided in his diet was slowly advanced to a regular diabetic diet. His hospitalization was complicated by the development of acute respiratory failure requiring oxygen supplementation. The patient was found to have some mild volume overload and elevated BNP. Due to this the patient had an echocardiogram performed which but he was noted to have grade 2 diastolic dysfunction. revealed normal left ventricular function. The patient was diuresed with IV Lasix and over the next couple of days his acute respiratory failure resolved and he was weaned successfully off of oxygen. At this point it is felt that he can safely be discharged home with close outpatient follow- up. This patient certainly needs ongoing diabetic education and close follow- up by his primary care physician. An appointment has been made at the time of discharge. Physical Exam Vital Signs: Temp Pulse Resp BP Pulse Ox 97.8 F 79 16 141/87 H 98 07/24/17 07:29 07/24/17 07:29 07/24/17 07:29 07/24/17 07:29 07/24/17 07:29 Intake & Output 07/23/17 07/24/17 07/25/17 06:59 06:59 06:59 Intake Total 6418 4000 Output Total 3850 2150 Balance 2568 1850 Weight 116.9 kg 116.9 kg General appearance: PRESENT: no acute distress, obese, well-developed, well- nourished Head exam: PRESENT: atraumatic, normocephalic Eye exam: PRESENT: conjunctiva pink, EOMI, PERRLA. ABSENT: scleral icterus Mouth exam: PRESENT: moist, tongue midline Respiratory exam: PRESENT: clear to auscultation rosy. ABSENT: rales, rhonchi, wheezes Cardiovascular exam: PRESENT: RRR. ABSENT: diastolic murmur, rubs, systolic murmur GI/Abdominal exam: PRESENT: normal bowel sounds, soft. ABSENT: distended, guarding, mass, organolmegaly, rebound, tenderness Rectal exam: PRESENT: deferred Extremities exam: PRESENT: full ROM. ABSENT: calf tenderness, clubbing, pedal edema Neurological exam: PRESENT: alert, awake, oriented to person, oriented to place , oriented to time, oriented to situation, CN II-XII grossly intact. ABSENT: motor sensory deficit Psychiatric exam: PRESENT: appropriate affect, normal mood. ABSENT: homicidal ideation, suicidal ideation Skin exam: PRESENT: dry, intact, warm. ABSENT: cyanosis, rash Results Laboratory Results: 07/24/17 05:37 07/24/17 05:37 07/24/17 07/24/17 05:37 05:37 WBC 6.6 RBC 4.34 L Hgb 14.2 Hct 40.7 MCV 94 MCH 32.8 MCHC 35.0 RDW 13.6 Plt Count 118 L Sodium 141.5 Potassium 4.0 Chloride 103 Carbon Dioxide 29 Anion Gap 10 BUN 9 Creatinine 0.76 Est GFR ( Amer) > 60 Est GFR (Non-Af Amer) > 60 Glucose 196 H Calcium 9.5 Magnesium 1.5 L Total Bilirubin 0.7 AST 45 ALT 74 H Alkaline Phosphatase 101 Total Protein 6.4 Albumin 3.7 Lipase 451.2 H 07/22/17 09:39 NT-Pro-B Natriuret Pep 196 H Impressions: Chest X-Ray 07/22/17 00:00 IMPRESSION: NO SIGNIFICANT RADIOGRAPHIC FINDING IN THE CHEST. Qualifiers PATEINT BEING DISCHARGED WITH ANY OF THE FOLLOWING DIAGNOSIS?: No Plan Discharge Plan: The patient will be discharged home today in stable condition Time Spent: Greater than 30 Minutes
[2017-07-24 12:29] VITALS: BP 138/87
== END 2017-07-24 13:47 | disposition home or self-care (01) | DRG 438 ==
LOC: ER 20:02 → EH 07-21 00:40 → UNDOADMIN 07-21 00:40 → EH 07-21 01:50 → 3N 07-21 04:14
PROVIDERS: ADMIT Family Medicine; ATTEND Family Medicine
DX: K85.90 Acute pancreatitis without necrosis or infection, unspecified (principal); J96.01 Acute respiratory failure with hypoxia; I50.31 Acute diastolic (congestive) heart failure; K86.1 Other chronic pancreatitis; E66.9 Obesity, unspecified; E11.65 Type 2 diabetes mellitus with hyperglycemia; D69.6 Thrombocytopenia, unspecified; E83.42 Hypomagnesemia; E78.5 Hyperlipidemia, unspecified; I10 Essential (primary) hypertension; K21.9 Gastro-esophageal reflux disease without esophagitis; M19.90 Unspecified osteoarthritis, unspecified site; F31.9 Bipolar disorder, unspecified; G47.33 Obstructive sleep apnea (adult) (pediatric); Z79.899 Other long term (current) drug therapy; Z79.4 Long term (current) use of insulin; Z68.37 Body mass index [BMI] 37.0-37.9, adult; Z86.711 Personal history of pulmonary embolism; Z90.49 Acquired absence of other specified parts of digestive tract; F17.200 Nicotine dependence, unspecified, uncomplicated; Z72.89 Other problems related to lifestyle
CPT/HCPCS: 36415; 71020; 80048; 80053; 80307; 81001; 82550; 82553; 82962; 83036; 83690; 83735; 83880; 84484; 85025; 85027; 85610; 93005; 93010; 93306; 94799; 96374; 96375; 96376; 99284; 99285; J1815; J1940; J2270; J2405; J2550; J3411; J3475; J3490; J7030

== ENCOUNTER 2017-09-09 06:32 | Emergency (ER) | payer MEDICARE, MEDICAID ==
[2017-09-09] MEDS ORDERED: CYCLOBENZAPRINE HCL 10 MG TABLET PO ONE (06:55)
--- NOTE | 2017-09-09 06:55 | ER Document Report ---
ED Hip Pain/Injury - General Mode of Arrival: Medic Information source: Patient TRAVEL OUTSIDE OF THE [place] IN LAST 30 DAYS: No <TAYLOR CARDENAS - Last Filed: 09/09/17 12:54> <JUNIOR HILL - Last Filed: 09/09/17 13:53> - General Chief Complaint: Hip Pain Stated Complaint: HIP PAIN Time Seen by Provider: 09/09/17 06:40 Notes: Patient is a 47 year old male that presents to the emergency department today with complaints of bilateral hip pain. Patient states 2 nights ago he felt dizzy and lightheaded and had a fall. Patient states he "hit the hardwood floor hard". Patient complains of bilateral hip pain, stating he fractured his right hip as a child and has "no collagen in it". Patient is able to ambulate with pain. (TAYLOR CARDENAS) - Related Data Allergies/Adverse Reactions: Iodinated Contrast- Oral and IV Dye Allergy (Unknown, Verified 07/20/17 10:24) IV dye Allergy (Uncoded 07/20/17 10:24) Past Medical History - General Information source: Patient - Social History Smoking Status: Never Smoker Cigarette use (# per day): No Frequency of alcohol use: None Drug Abuse: None Lives with: Family Family History: Reviewed & Not Pertinent, COPD - Past Medical History Cardiac Medical History: Reports: Hx DVT, Hx Hypercholesterolemia, Hx Hypertension, Hx Pulmonary Embolism Pulmonary Medical History: Reports: Hx Bronchitis, Hx Sleep Apnea - Noncompliant with uncomfortable mask. Endocrine Medical History: Reports: Hx Diabetes Mellitus Type 1 - Now has a functioning glucometer, Hx Diabetes Mellitus Type 2 GI Medical History: Reports: Hx Gastroesophageal Reflux Disease Musculoskeltal Medical History: Reports Hx Arthritis Psychiatric Medical History: Reports: Hx Bipolar Disorder, Hx Depression - personality disorder, Hx Schizoaffective Disorder Past Surgical History: Reports: Hx Cholecystectomy, Hx Orthopedic Surgery - Immunizations Hx Diphtheria, Pertussis, Tetanus Vaccination: No <TAYLOR CARDENAS - Last Filed: 09/09/17 12:54> Review of Systems - Review of Systems Constitutional: No symptoms reported EENT: No symptoms reported Cardiovascular: No symptoms reported Respiratory: No symptoms reported Gastrointestinal: No symptoms reported Genitourinary: No symptoms reported Male Genitourinary: No symptoms reported Musculoskeletal: See HPI, Joint pain - hip bilaterally Skin: No symptoms reported Hematologic/Lymphatic: No symptoms reported Neurological/Psychological: No symptoms reported -: Yes All other systems reviewed and negative <TAYLOR CARDENAS - Last Filed: 09/09/17 12:54> Physical Exam <TAYLOR CARDENAS - Last Filed: 09/09/17 12:54> <JUNIOR HILL - Last Filed: 09/09/17 13:53> - Vital signs Vitals: Temp Pulse Resp BP Pulse Ox 97.9 F 104 H 18 150/93 H 98 09/09/17 07:04 09/09/17 07:04 09/09/17 07:04 09/09/17 07:04 09/09/17 07:04 - Notes Notes: Physical Exam: General: Alert, appears somewhat uncomfortable. HEENT: Normocephalic. Atraumatic. PERRL. Extraocular movements intact. Oropharynx clear. Neck: Supple. Non-tender. Respiratory: No respiratory distress. Clear and equal breath sounds bilaterally. Cardiovascular: Regular rate and rhythm. Abdominal: Normal Inspection. Non-tender. No distension. Normal Bowel Sounds. Back: Non-tender. No deformity or step off. Extremities: Moves all four extremities. Upper extremities: Normal inspection. Normal ROM. Lower extremities: Bilateral tenderness with palpation over greater trochanter. Neurological: Normal cognition. AAOx4. Normal speech. Psychological: Normal affect. Normal Mood. Skin: Warm. Dry. Normal color. (TAYLOR CARDENAS) Course <TAYLOR CARDENAS - Last Filed: 09/09/17 12:54> - Diagnostic Test Radiology reviewed: Reports reviewed <JUNIOR HILL - Last Filed: 09/09/17 13:53> - Re-evaluation Re-evalutation: 09/09/17 Patient is feeling better after Flexeril. Patient has full range of motion and strength. Initial blood sugar was in the 500s. It has come down on its own to the 300s. Patient states that he has been taking his insulin as he is supposed to. Would prefer not to do blood work as he feels well currently. Hips feel better at this time. He is taking p.o. and has no further complaints. Tachycardia has resolved. Patient ambulates without difficulty. Will be discharged home with Flexeril and is to follow-up with his PMD. Stable for discharge. (JUNIOR HILL) - Vital Signs Vital signs: Temp Pulse Resp BP Pulse Ox 97.6 F 106 H 18 123/69 95 09/09/17 09:34 09/09/17 09:34 09/09/17 09:34 09/09/17 09:34 09/09/17 09:34 - Laboratory Laboratory results interpreted by me: 09/09/17 07:56 POC Glucose 336 H Discharge <TAYLOR CARDENAS - Last Filed: 09/09/17 12:54> <JUNIOR HILL - Last Filed: 09/09/17 13:53> - Discharge Clinical Impression: Hip pain, bilateral, Hyperglycemia Fall Qualifiers: Encounter type: initial encounter Qualified Code(s): W19.XXXA - Unspecified fall, initial encounter Condition: Stable Disposition: HOME, SELF-CARE Instructions: Contusion ([facility]), Hyperglycemia ([facility]) Prescriptions: Cyclobenzaprine HCl [Flexeril 10 Mg Tablet] 5 - 10 mg PO BIDP PRN #20 tablet PRN Reason: Referrals: FAHEEM CHOI PA-C [Primary Care Provider] - Follow up in 3-5 days Scribe Attestation: 09/09/17 13:53 I personally performed the services described in the documentation, reviewed and edited the documentation which was dictated to the scribe in my presence, and it accurately records my words and actions. (JUNIOR HILL)
--- NOTE | 2017-09-09 07:25 | RADIOLOGY REPORT (SQ) ---
EXAM DESCRIPTION: L SPINE WHOLE CLINICAL HISTORY: fall, pain COMPARISON: None. FINDINGS: 4 views of the lumbar spine. 5 nonrib-bearing lumbar vertebrae. Vertebral body height preserved. Mild loss of disc height at L1/2, L2/3, and L5/S1. Mild endplate spondylosis at L1/2. No subluxation. Phleboliths in the pelvis. Pelvic soft tissues are otherwise unremarkable. No abnormalities of the visualized sacrum or pelvic bones. No fractures the visualized ribs. IMPRESSION: No acute abnormality of the lumbar spine by plain film criteria.
--- NOTE | 2017-09-09 07:26 | RADIOLOGY REPORT (SQ) ---
EXAM DESCRIPTION: PELVIS AP CLINICAL HISTORY: Fall, pain COMPARISON: None. FINDINGS: Single view of the pelvis. No acute fracture or dislocation identified. Normal osseous mineralization. Joint spaces preserved. Phleboliths in the pelvic soft tissues. IMPRESSION: No acute fracture or dislocation identified.
[2017-09-09 09:36] VITALS: BP 123/69
== END 2017-09-09 09:36 | disposition home or self-care (01) ==
LOC: ER 06:32
DX: M25.551 Pain in right hip (principal); M25.552 Pain in left hip; E11.65 Type 2 diabetes mellitus with hyperglycemia; R42 Dizziness and giddiness; W19.XXXA Unspecified fall, initial encounter
CPT/HCPCS: 99284; 82962; 72110; 72170; A9270

== ENCOUNTER → 2017-09-24 | Outpatient (CLI) | payer MEDICARE, MEDICAID ==
--- NOTE | 2017-09-24 14:13 | RADIOLOGY REPORT (SQ) ---
EXAM DESCRIPTION: CT CHEST WITHOUT COMPLETED DATE/TIME: 09/24/2017 12:50 pm REASON FOR STUDY: PULMONARY NODULE R91.1 SOLITARY PULMONARY NODULE COMPARISON: CTA chest 06/21/2017 TECHNIQUE: CT scan performed of the chest without intravenous contrast. Images reviewed with lung, soft tissue and bone windows. Reconstructed coronal and sagittal MPR images reviewed. All images st ored on PACS. All CT scanners at this facility use dose modulation, iterative reconstruction, and/or weight based d osing when appropriate to reduce radiation dose to as low as reasonably achievable (ALARA). [facility]: Dose Right [facility]: CareDose [facility]: Dose Right [facility]: Teradose 4D [facility]: [employer] RADIATION DOSE: mGy. LIMITATIONS: No technical limitations. FINDINGS: LUNGS AND PLEURA: Once again there is a small cluster of nodules in the inferior aspect of right upper lobe. The largest measures about 10 mm in size. There is no change. HILAR AND MEDIASTINAL STRUCTURES: No identified masses or abnormal nodes. No obvious aneurysm. HEART AND VASCULAR STRUCTURES: No aneurysm. No pericardial effusion. UPPER ABDOMEN: No significant findings. Limited exam. THYROID AND OTHER SOFT TISSUES: No masses. No adenopathy. BONES: No significant finding. HARDWARE: None in the chest. OTHER: No other significant findings. IMPRESSION: There is a cluster of small pulmonary nodules in the right upper lobe as described. 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 COMMENT: FLEISCHNER CRITERIA FOR FOLLOW-UP OF PULMONARY NODULES Incidentally detected new nodules in persons 35 or older. HIGH RISK: History of smoking or other known risk factors. >8mm single solid nodule: LOW and HIGH RISK: consider CT, PET/CT or biopsy at 3 mo. TECHNICAL DOCUMENTATION: JOB ID: [id number] Quality ID # [id number]: Final reports with documentation of one or more dose reduction techniques (e.g., Au tomated exposure control, adjustment of the mA and/or kV according to patient size, use of iterative reconstruction technique) 2010 [employer]- All Rights Reserved
== END ==
LOC: RAD 12:18
PROVIDERS: ATTEND Internal Medicine Critical Care Medicine
DX: R91.8 Other nonspecific abnormal finding of lung field (principal)
CPT/HCPCS: 71250

== ENCOUNTER → 2017-10-06 | Outpatient (CLI) | payer MEDICARE, MEDICAID ==
--- NOTE | 2017-10-06 12:47 | RADIOLOGY REPORT (SQ) ---
EXAM DESCRIPTION: MRI LUMBAR SPINE WITHOUT COMPLETED DATE/TIME: 10/06/2017 12:20 pm REASON FOR STUDY: ANNE MARIE LANDON RIGHT HIP (M25.551) M25.551 PAIN IN RIGHT HIP COMPARISON: Lumbar spine films 09/09/2017 CT abdomen and pelvis 06/27/2017 TECHNIQUE: Sagittal and Axial imaging includes T1, T2, STIR and gradient echo sequences. Coronal T2/ HASTE imaging. LIMITATIONS: None. FINDINGS: VISUALIZED UPPER ABDOMEN: Limited evaluation. No acute or suspicious findings suggested. SEGMENTATION: No transitional anatomy. The lowest well-developed disc space is labeled L5-S1. ALIGNMENT: Anatomic. VERTEBRAE: Intact. BONE MARROW: Normal. No marrow replacement or reactive changes. DISC SIGNAL: Decreased T2 weighted intervertebral disc signal at L1-2 and L5-S1 POSTERIOR ELEMENTS: Generally intact. No pars defect evident. HARDWARE: None in the spine. CORD AND CONUS: Normal in size and signal intensity. Conus at the T12-L1 level. SOFT TISSUES: No aortic aneurysm seen. No bulky retroperitoneal adenopathy or mass. No paraspinal mas s or fluid. T11-12: Moderate bilateral facet hypertrophy with mild bilateral foraminal narrowing. No central st enosis. T12-L1: Mild bilateral facet hypertrophy. No central or foraminal stenosis. L1-L2: Mild bilateral facet and ligament hypertrophy. No central or foraminal stenosis. L2-L3: Mild bilateral facet and ligament hypertrophy. No central or foraminal stenosis. L3-L4: Moderate bilateral facet and ligament hypertrophy, mild diffuse posterior disc bulging. No si gnificant central or foraminal stenosis. L4-L5: Mild diffuse posterior disc bulge with more focal left foraminal and lateral bulging. Moderat e bilateral facet and ligament hypertrophy. No central stenosis. No right foraminal narrowing. Abilio y mild inferior left foraminal narrowing without exiting L4 nerve root impingement L5-S1: Small central posterior disc bulge and bony spurring. This effaces the ventral epidural fat a nd abuts the thecal sac near the takeoff of the S1 nerve roots without nerve root impingement. This is best shown on axial T2 images 31-33. Elsewhere at L5-S1 there is mild bilateral foraminal narrowing from disc bulge and facet arthropathy without exiting L5 nerve root impingement. SACRUM: Visualized upper sacrum intact. OTHER: No other significant findings. IMPRESSION: Mild degenerative disc changes as above TECHNICAL DOCUMENTATION: JOB ID: [id number] [employer]- All Rights Reserved
== END ==
LOC: RAD 09:54
PROVIDERS: ATTEND Anesthesiology Pain Medicine
DX: M25.551 Pain in right hip (principal); M47.9 Spondylosis, unspecified
CPT/HCPCS: 72148

== ENCOUNTER 2017-11-05 18:32 | Emergency (ER) | payer MEDICARE, MEDICAID ==
[2017-11-05] MEDS ORDERED: ASPIRIN 81 MG TABLET, CHEWABLE PO ONE (21:12)
--- NOTE | 2017-11-05 21:15 | ER Document Report ---
ED Medical Screen (RME) - General Chief Complaint: Chest Wall Pain Stated Complaint: LUNG PAIN Time Seen by Provider: 11/05/17 21:12 Mode of Arrival: Ambulatory Information source: Patient Notes: Patient presents complaining of right sided lung tenderness that he attributes to a pulmonary tumor. 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 Patient complains of cough for the past few days with some dyspnea. Patient does report nausea and diarrhea today. Patient denies any fever. hx: Pulmonary tumor, hypertension, pancreatitis, diabetes, ulcer, cholecystectomy TRAVEL OUTSIDE OF THE [place] IN LAST 30 DAYS: No - Related Data Allergies/Adverse Reactions: Iodinated Contrast- Oral and IV Dye Allergy (Unknown, Verified 11/05/17 18:36) IV dye Allergy (Uncoded 11/05/17 18:36) Past Medical History - Social History Frequency of alcohol use: None Drug Abuse: None - Past Medical History Cardiac Medical History: Reports: Hx DVT, Hx Hypercholesterolemia, Hx Hypertension, Hx Pulmonary Embolism Denies: Hx Atrial Fibrillation, Hx Congestive Heart Failure, Hx Coronary Artery Disease, Hx Heart Attack Pulmonary Medical History: Reports: Hx Bronchitis, Hx Sleep Apnea - Noncompliant with uncomfortable mask. Denies: Hx Asthma, Hx COPD Neurological Medical History: Denies: Hx Seizures Endocrine Medical History: Reports: Hx Diabetes Mellitus Type 1 - Now has a functioning glucometer, Hx Diabetes Mellitus Type 2. Denies: Hx Hyperthyroidism , Hx Hypothyroidism Renal/ Medical History: Denies: Hx Peritoneal Dialysis GI Medical History: Reports: Hx Gastroesophageal Reflux Disease. Denies: Hx Cirrhosis, Hx Hepatitis Musculoskeltal Medical History: Reports Hx Arthritis Psychiatric Medical History: Reports: Hx Bipolar Disorder, Hx Depression - personality disorder, Hx Schizoaffective Disorder Infectious Medical History: Denies: Hx Hepatitis Past Surgical History: Reports: Hx Cholecystectomy, Hx Orthopedic Surgery - Immunizations Hx Diphtheria, Pertussis, Tetanus Vaccination: No Physical Exam - Vital signs Vitals: Temp Pulse Resp BP Pulse Ox 98.4 F 109 H 20 124/78 98 11/05/17 18:39 11/05/17 18:39 11/05/17 18:39 11/05/17 18:39 11/05/17 18:39 - Respiratory Respiratory status: No respiratory distress Breath sounds: Nonproductive cough - Abdominal Tenderness: Tender - Right upper quadrant. No: Guarding Course - Vital Signs Vital signs: Temp Pulse Resp BP Pulse Ox 98.4 F 109 H 20 124/78 98 11/05/17 18:39 11/05/17 18:39 11/05/17 18:39 11/05/17 18:39 11/05/17 18:39
[2017-11-05 22:28] LABS: ABSOLUTE EOSINOPHILS # (AUTO) 0.1 10^3/uL (0.0-0.6); ABSOLUTE LYMPHOCYTES (AUTO) 1.7 10^3/uL (0.5-4.7); ABSOLUTE MONOCYTES (AUTO) 0.5 10^3/uL (0.1-1.4); ABSOLUTE NEUT (AUTO) 3.8 10^3/uL (1.7-8.2); BASOPHILS % (AUTO) 0.5 % (0-2); EOSINOPHILS % (AUTO) 1.2 % (0-6); HEMATOCRIT 46.4 % (37.9-51.0); HEMOGLOBIN 15.7 g/dL (13.5-17.0); LYMPHOCYTES % (AUTO) 27.3 % (13-45); MEAN CORPUSCULAR HEMOGLOBIN 32.1 pg (27.0-33.4); MEAN CORPUSCULAR HGB CONC 33.7 g/dL (32.0-36.0); MEAN CORPUSCULAR VOLUME 95 fl (80-97); MONOCYTES % (AUTO) 8.7 % (3-13); PLATELET COUNT 112 10^3/uL (150-450); RED BLOOD COUNT 4.87 10^6/uL (4.35-5.55); SEGMENTED NEUTROPHILS % (AUTO) 62.3 % (42-78); TOTAL CELLS COUNTED % (AUTO) 100 %; WHITE BLOOD COUNT 6.1 10^3/uL (4.0-10.5)
[2017-11-05 22:44] LABS: ALANINE AMINOTRANSFERASE 62 U/L (21-72); ALBUMIN 4.7 g/dL (3.5-5.0); ALKALINE PHOSPHATASE 112 U/L (38-126); ANION GAP 15 (5-19); ASPARTATE AMINO TRANSFERASE 74 U/L (17-59); BILIRUBIN,DIRECT 0.3 mg/dL (0.0-0.4); BILIRUBIN,TOTAL 0.6 mg/dL (0.2-1.3); BLOOD UREA NITROGEN 17 mg/dL (7-20); CALCIUM 10.3 mg/dL (8.4-10.2); CARBON DIOXIDE 28 mmol/L (22-30); CHLORIDE 98 mmol/L (98-107); CREATINE KINASE 71 U/L (55-170); LIPASE 788.5 U/L (23-300); MAGNESIUM 1.7 mg/dL (1.6-2.3); POTASSIUM 4.4 mmol/L (3.6-5.0); SODIUM 140.5 mmol/L (137-145); TOTAL PROTEIN 8.2 g/dL (6.3-8.2)
[2017-11-05 22:55] LABS: GLUCOSE 441 mg/dL (75-110)
[2017-11-05 22:56] LABS: APPEARANCE,URINE CLEAR; BILIRUBIN,URINE NEGATIVE (NEGATIVE); COLOR,URINE YELLOW; GLUCOSE, URINE >=500 mg/dL (NEGATIVE); KETONES,URINE NEGATIVE (NEGATIVE); LEUKOCYTE ESTERASE,URINE NEGATIVE (NEGATIVE); NITRITE,URINE NEGATIVE (NEGATIVE); PROTEIN,URINE NEGATIVE (NEGATIVE); URINE SPECIFIC GRAVITY 1.033; UROBILINOGEN,URINE NEGATIVE mg/dL (<2.0)
[2017-11-05 22:58] LABS: TROPONIN I < 0.012 ng/mL
--- NOTE | 2017-11-05 22:59 | RADIOLOGY REPORT (SQ) ---
EXAM DESCRIPTION: CHEST PA/LAT COMPLETED DATE/TIME: 11/05/2017 10:06 pm REASON FOR STUDY: cough, hx lung tumor COMPARISON: Chest x-ray 07/22/2017. CT chest 09/24/2017. EXAM PARAMETERS: NUMBER OF VIEWS: two views TECHNIQUE: Digital Frontal and Lateral radiographic views of the chest acquired. RADIATION DOSE: NA LIMITATIONS: none FINDINGS: LUNGS AND PLEURA: Ground-glass opacity in the right upper lobe. No pleural effusion or pn eumothorax. MEDIASTINUM AND HILAR STRUCTURES: No masses or contour abnormalities. HEART AND VASCULAR STRUCTURES: Heart normal size. No evidence for failure. BONES: Degenerative changes in the spine. HARDWARE: None in the chest. IMPRESSION: Ground-glass opacity in the right upper lobe, may correspond to the previously described cluster of pulmonary nodules. TECHNICAL DOCUMENTATION: JOB ID: [id number] [place]-64 2010 [employer]- All Rights Reserved
[2017-11-05] MEDS ORDERED: INSULIN REG, HUMAN 100 UNIT/ML 3 ML VIAL (PYX) SUBCUT ONE (23:08)
[2017-11-05] MEDS ORDERED: NORMAL SALINE 1000 ML 1,000 ML IV ONE (23:08)
[2017-11-06] MEDS ORDERED: FAMOTIDINE INJ/PF 20 MG/2 ML SDV IV ONE (00:55)
[2017-11-06] MEDS ORDERED: DIPHENHYDRAMINE HCL 50 MG/ML VIAL IV ONE (00:55)
[2017-11-06] MEDS ORDERED: METHYLPREDNISOLONE INJ 125 MG/2 ML SDV IV ONE (00:55)
[2017-11-06] MEDS ORDERED: MORPHINE SULFATE 10 MG/ML INJ IV ONE ×2 (01:00→03:47)
[2017-11-06] MEDS ORDERED: METOCLOPRAMIDE HCL INJ/PF 10 MG/2 ML SDV IV ONE (01:00)
--- NOTE | 2017-11-06 01:03 | ER Document Report ---
ED General - General Chief Complaint: Chest Wall Pain Stated Complaint: LUNG PAIN Time Seen by Provider: 11/05/17 21:12 Mode of Arrival: Ambulatory Information source: Patient Notes: 47-year-old male who was diagnosed with a lung mass approximately one half months ago has not received any treatment yet presents with complaints of chest pain on the right side when he breathes as well as abdominal pain. Patient notes he has a history of pancreatitis believes it is pancreatitis again. He denies any fevers or chills denies any vomiting but admits to nausea patient notes it hurts when he takes a breath abdominal pain is looking the left upper quadrant TRAVEL OUTSIDE OF THE [place] IN LAST 30 DAYS: No - HPI Onset: Other Onset/Duration: Persistent Quality of pain: Sharp Severity: Mild Pain Level: 1 Associated symptoms: Chest pain, Nausea, Shortness of breath, Other Exacerbated by: Deep breathing Relieved by: Denies Similar symptoms previously: Yes Recently seen / treated by doctor: Yes - Related Data Allergies/Adverse Reactions: Iodinated Contrast- Oral and IV Dye Allergy (Unknown, Verified 11/05/17 18:36) IV dye Allergy (Uncoded 11/05/17 18:36) Past Medical History - General Information source: Patient - Social History Smoking Status: Never Smoker Cigarette use (# per day): No Chew tobacco use (# tins/day): No Smoking Education Provided: No Frequency of alcohol use: None Drug Abuse: None Family History: Reviewed & Not Pertinent, COPD Patient has suicidal ideation: No Patient has homicidal ideation: No - Past Medical History Cardiac Medical History: Reports: Hx DVT, Hx Hypercholesterolemia, Hx Hypertension, Hx Pulmonary Embolism Denies: Hx Atrial Fibrillation, Hx Congestive Heart Failure, Hx Coronary Artery Disease, Hx Heart Attack Pulmonary Medical History: Reports: Hx Bronchitis, Hx Sleep Apnea - Noncompliant with uncomfortable mask. Denies: Hx Asthma, Hx COPD Neurological Medical History: Denies: Hx Seizures Endocrine Medical History: Reports: Hx Diabetes Mellitus Type 1 - Now has a functioning glucometer, Hx Diabetes Mellitus Type 2. Denies: Hx Hyperthyroidism , Hx Hypothyroidism Renal/ Medical History: Denies: Hx Peritoneal Dialysis GI Medical History: Reports: Hx Gastroesophageal Reflux Disease. Denies: Hx Cirrhosis, Hx Hepatitis Musculoskeltal Medical History: Reports Hx Arthritis Psychiatric Medical History: Reports: Hx Bipolar Disorder, Hx Depression - personality disorder, Hx Schizoaffective Disorder Infectious Medical History: Denies: Hx Hepatitis Past Surgical History: Reports: Hx Cholecystectomy, Hx Orthopedic Surgery - Immunizations Hx Diphtheria, Pertussis, Tetanus Vaccination: No Review of Systems - Review of Systems Notes: REVIEW OF SYSTEMS: CONSTITUTIONAL : Denies fever, chills, or sweats. Denies recent illness. EENT: Denies eye, ear, throat, or mouth pain or symptoms. Denies nasal or sinus congestion or discharge. Denies throat, tongue, or mouth swelling or difficulty swallowing. CARDIOVASCULAR: Denies chest pain. Denies palpitations or racing or irregular heart beat. Denies ankle edema. RESPIRATORY: Admits to right-sided chest pain GASTROINTESTINAL: Admits to abdominal pain nausea GENITOURINARY: Denies difficulty urinating, painful urination, burning, frequency, blood in urine, or discharge. FEMALE GENITOURINARY: Denies vaginal bleeding, heavy or abnormal periods, irregular periods. Denies vaginal discharge or odor. MUSCULOSKELETAL: Denies back or neck pain or stiffness. Denies joint pain or swelling. SKIN: Denies rash, lesions or sores. HEMATOLOGIC : Denies easy bruising or bleeding. LYMPHATIC: Denies swollen, enlarged glands. NEUROLOGICAL: Denies confusion or altered mental status. Denies passing out or loss of consciousness. Denies dizziness or lightheadedness. Denies headache. Denies weakness or paralysis or loss of use of either side. Denies problems with gait or speech. Denies sensory loss, numbness, or tingling. Denies seizures. PSYCHIATRIC: Denies anxiety or stress. Denies depression, suicidal ideation, or homicidal ideation. ALL OTHER SYSTEMS REVIEWED AND NEGATIVE. PHYSICAL EXAMINATION: GENERAL: Well-appearing, well-nourished and in no acute distress. HEAD: Atraumatic, normocephalic. EYES: Pupils equal round and reactive to light, extraocular movements intact, conjunctiva are normal. ENT: Nares patent, oropharynx clear without exudates. Moist mucous membranes. NECK: Normal range of motion, supple without lymphadenopathy LUNGS: Breath sounds clear to auscultation bilaterally and equal. No wheezes rales or rhonchi. HEART: Regular rate and rhythm without murmurs ABDOMEN: Soft, minimally tender left upper quadrant no rebound or guarding Female : deferred Musculoskeletal: Normal range of motion, no pitting or edema. No cyanosis. NEUROLOGICAL: Cranial nerves grossly intact. Normal speech, normal gait. Normal sensory, motor exams PSYCH: Normal mood, normal affect. SKIN: Warm, Dry, normal turgor, no rashes or lesions noted. Dictation was performed using [employer] voice recognition software Physical Exam - Vital signs Vitals: Temp Pulse Resp BP Pulse Ox 98.4 F 109 H 20 124/78 98 11/05/17 18:39 11/05/17 18:39 11/05/17 18:39 11/05/17 18:39 11/05/17 18:39 Course - Re-evaluation Re-evalutation: 11/06/17 01:02 Patient notes that his blood sugar has been elevated ever since the mass was found, his insulin has been increased to 60 units but continues to be hyperglycemic, he is noted to have a blood sugar 441 here, insulin fluids have been ordered. Patient will go for CT of his chest, he notes only a rash which resolved with Benadryl with IV contrast. Patient does have pancreatitis but appears well 11/06/17 03:28 CTA was negative blood sugar has improved significantly, patient wishes to be discharged home I agree with discharge Patient otherwise looks well is in no distress After performing a Medical Screening Examination, I estimate there is LOW risk for ACUTE CORONARY SYNDROME, PULMONARY EMBOLI, RESPIRATORY FAILURE, SEPSIS OR MENINGITIS, thus I consider the discharge disposition reasonable. I have reevaluated this patient multiple times and no significant life threatening changes are noted. The patient and I have discussed the diagnosis and risks, and we agree with discharging home with close follow-up. We also discussed returning to the Emergency Department immediately if new or worsening symptoms occur. We have discussed the symptoms which are most concerning (e.g., changing or worsening pain, trouble swallowing or breathing, neck stiffness, fever) that necessitate immediate return. - Vital Signs Vital signs: Temp Pulse Resp BP Pulse Ox 98.1 F 99 20 127/88 H 96 11/05/17 21:14 11/05/17 21:14 11/05/17 21:14 11/05/17 21:14 11/05/17 21:14 - Laboratory Result Diagrams: 11/05/17 22:10 11/05/17 21:48 Laboratory results interpreted by me: 11/05/17 11/05/17 11/05/17 21:48 21:48 22:10 Plt Count 112 L Glucose 441 H* POC Glucose Calcium 10.3 H AST 74 H Lipase 788.5 H Urine Glucose (UA) >=500 H 11/06/17 02:58 Plt Count Glucose POC Glucose 244 H Calcium AST Lipase Urine Glucose (UA) - Diagnostic Test Radiology reviewed: Image reviewed, Reports reviewed Discharge - Discharge Clinical Impression: History of pulmonary embolism, Nodule of right lung Uncontrolled diabetes mellitus Qualifiers: Diabetes mellitus type: type 1 Diabetes mellitus complication status: with unspecified complications Qualified Code(s): E10.8 - Type 1 diabetes mellitus with unspecified complications; E10.65 - Type 1 diabetes mellitus with hyperglycemia; E10.65 - Type 1 diabetes mellitus with hyperglycemia; E10.65 - Type 1 diabetes mellitus with hyperglycemia; E10.65 - Type 1 diabetes mellitus with hyperglycemia Acute pancreatitis Qualifiers: Pancreatitis type: unspecified pancreatitis type Acute pancreatitis complication: unspecified Qualified Code(s): K85.90 - Acute pancreatitis without necrosis or infection, unspecified Condition: Stable Disposition: HOME, SELF-CARE Instructions: Pancreatitis ([facility]) Prescriptions: Hydrocodone/Acetaminophen [[place] 5-325 mg Tablet] 1 tab PO Q6 #10 tablet Metoclopramide HCl [Reglan 10 mg Tablet] 1 - 2 tab PO Q6 #25 tablet Referrals: FAHEEM CHOI PA-C [Primary Care Provider] - Follow up tomorrow
--- NOTE | 2017-11-06 03:11 | RADIOLOGY REPORT (SQ) ---
EXAM DESCRIPTION: CTA of the chest per PE protocol with contrast. CLINICAL HISTORY: sob COMPARISON: 06/21/2017 TECHNIQUE: CTA of the chest obtained following the uncomplicated intravenous administration of 100 mL Isovue-300. 3-D/MIP reformatted images of the chest available for evaluation. FINDINGS: Chest: Mediastinal windows demonstrate an excellent contrast bolus. No pulmonary embolus identified. Visualized thyroid gland is unremarkable. 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 No cardiomegaly, coronary artery atherosclerosis, or pericardial effusion. No abnormalities of the esophagus. Scattered mediastinal lymph nodes are not enlarged by CT criteria. Lung windows demonstrate no consolidation, pneumothorax, or pleural effusion. No abnormalities of the visualized trachea or airways. 1.6 cm solid right upper lobe nodule is unchanged Limited images of the upper abdomen demonstrate no abnormalities of the visualized liver, spleen, pancreas, adrenal glands, or kidneys. Prior cholecystectomy. No destructive osseous lesions. DLP: 1142 mGycm IMPRESSION: 1. No pulmonary embolus identified. 2. Right upper lobe pulmonary nodule measuring 1.6 cm is unchanged. PET/CT could provide additional characterization. Continued follow-up in 6 months recommended if PET CT or biopsy not performed. This exam was performed according to our departmental dose-optimization program, which includes automated exposure control, adjustment of the mA and/or kV according to patient size and/or use of iterative reconstruction technique.
[2017-11-06 04:08] VITALS: BP 139/86
--- NOTE | 2017-11-06 08:00 | EKG REPORT ---
SEVERITY:- BORDERLINE ECG - SINUS RHYTHM BORDERLINE T ABNORMALITIES, INFERIOR LEADS : Confirmed by: Giovanni Slater MD 06-Nov-2017 08:00:01
--- NOTE | 2017-11-06 09:56 | ER Document Report ---
Doctor's Note Notes: 11/06/17 09:55 Emilia Riggins pharmacist with [facility] [address] calling to report [place] script since patient received #[address] Hoffman on 11/04. Told her to call their office and if they okay it, it can be filled
== END 2017-11-06 04:07 | disposition home or self-care (01) ==
LOC: ER 18:32
DX: R91.1 Solitary pulmonary nodule (principal); E10.8 Type 1 diabetes mellitus with unspecified complications; E10.65 Type 1 diabetes mellitus with hyperglycemia; K85.90 Acute pancreatitis without necrosis or infection, unspecified; E78.00 Pure hypercholesterolemia, unspecified; I10 Essential (primary) hypertension; Z86.711 Personal history of pulmonary embolism; Z91.041 Radiographic dye allergy status; Z86.718 Personal history of other venous thrombosis and embolism; Z79.4 Long term (current) use of insulin
CPT/HCPCS: 93005; 96376; 99285; 96361; 96374; 96375; 36415; 82553; 82962; 82550; 83690; 83735; 85025; 80053; 81001; 84484; 71046; 71275; 93010; A9270 ×2; J1200; J2930; J2765; J2270; J7030; S0028; J1815

== ENCOUNTER 2017-11-07 18:27 | Emergency (ER) | payer MEDICARE, MEDICAID ==
[2017-11-07] MEDS ORDERED: NORMAL SALINE 1000 ML 1,000 ML IV ONE ×2 (18:46→21:33)
[2017-11-07] MEDS ORDERED: MORPHINE SULFATE 10 MG/ML INJ IV ONE ×2 (18:46→21:33)
--- NOTE | 2017-11-07 18:49 | ER Document Report ---
ED General - General Chief Complaint: Abdominal Pain Stated Complaint: ABDOMINAL PAIN Time Seen by Provider: 11/07/17 18:44 Notes: 39-year-old male with CHF and pancreatitis presents with ongoing abdominal pain and nausea. He says he was admitted and discharged for pancreatitis but I see he was seen in the ED a couple of days ago and discharged. He has been admitted before for acute exacerbation of chronic pancreatitis as well as respiratory failure. He complains of upper abdominal pain constant worse with palpation and eating associated with nausea and anorexia. No vomiting no blood per rectum but positive diarrhea. He has been taking pain and nausea medicine at home to no avail. TRAVEL OUTSIDE OF THE [place] IN LAST 30 DAYS: No - Related Data Allergies/Adverse Reactions: Iodinated Contrast- Oral and IV Dye Allergy (Unknown, Verified 11/05/17 18:36) IV dye Allergy (Uncoded 11/05/17 18:36) Past Medical History - Social History Smoking Status: Former Smoker Family History: Reviewed & Not Pertinent, COPD - Past Medical History Cardiac Medical History: Reports: Hx DVT, Hx Hypercholesterolemia, Hx Hypertension, Hx Pulmonary Embolism Denies: Hx Atrial Fibrillation, Hx Congestive Heart Failure, Hx Coronary Artery Disease, Hx Heart Attack Pulmonary Medical History: Reports: Hx Bronchitis, Hx Sleep Apnea - Noncompliant with uncomfortable mask. Denies: Hx Asthma, Hx COPD Neurological Medical History: Denies: Hx Seizures Endocrine Medical History: Reports: Hx Diabetes Mellitus Type 1 - Now has a functioning glucometer, Hx Diabetes Mellitus Type 2. Denies: Hx Hyperthyroidism , Hx Hypothyroidism Renal/ Medical History: Denies: Hx Peritoneal Dialysis GI Medical History: Reports: Hx Gastroesophageal Reflux Disease. Denies: Hx Cirrhosis, Hx Hepatitis Musculoskeltal Medical History: Reports Hx Arthritis Psychiatric Medical History: Reports: Hx Bipolar Disorder, Hx Depression - personality disorder, Hx Schizoaffective Disorder Infectious Medical History: Denies: Hx Hepatitis Past Surgical History: Reports: Hx Cholecystectomy, Hx Orthopedic Surgery - Immunizations Hx Diphtheria, Pertussis, Tetanus Vaccination: No Review of Systems - Review of Systems Notes: REVIEW OF SYSTEMS GEN: Denies fever, chills, weight loss ENT: Denies sore throat, nasal discharge, ear pain EYES: Denies blurry vision, eye pain, discharge CV: Denies chest pain, palpitations, edema RESP: Denies cough, shortness of breath, wheezing GI: Nausea diarrhea abdominal pain MSK: Denies joint pain/swelling, edema, SKIN: Denies rash, skin lesions LYMPH: Denies swollen glands/lymph nodes NEURO: Denies headache, focal weakness or numbness, dizziness PSYCH: Denies depression, suicidal or homicidal ideation PHYSICAL EXAMINATION General: No acute distress, well-nourished Head: Atraumatic, normocephalic ENT: Mouth normal, oropharynx moist, no exudates or tonsillar enlargement Eyes: Conjunctiva normal, pupils equal, lids normal Neck: No JVD, supple, no guarding CVS: Normal rate, regular rhythm, no murmurs Resp: No resp distress, equal and normal breath sounds bilaterally GI: To rent from upper abdomen with tenderness throughout, no tenderness in lower abdomen, no guarding Ext: No deformities, no edema, normal range of motion in upper and lower ext Back: No CVA or midline TTP Skin: No rash, warm Lymphatic: No lymphadeopathy noted Neuro: Awake, alert. Face symmetric. GCS 15. Physical Exam - Vital signs Vitals: Temp Pulse Resp BP Pulse Ox 98.0 F 92 18 122/76 97 11/07/17 18:46 11/07/17 18:46 11/07/17 18:46 11/07/17 18:46 11/07/17 18:46 Course - Re-evaluation Re-evalutation: 11/07/17 18:49 47-year-old male with a history of alcoholism now sober for 2 weeks according to him presenting with signs and symptoms of pancreatitis. Differential includes upper GI bleed hepatitis cholelithiasis. He had a recently negative CTA of his abdomen to a vascular etiology is less likely. I will obtain lab studies including lipase. I will hydrate him with 1 L because he looks dry and I will stop there given that he has a history of pancreatitis. 11/07/17 22:11 Patient's lipase is elevated 800. This does not quite meet criteria for pancreatitis. Given that he is so tender, I ordered a CT scan. I discussed the case with Dr. Guaman who agrees with this workup and we will wait to admit until we have a diagnosis. He has been here a couple of times for abdominal pain and there is some suspicion of drug-seeking behavior on the part of the hospitalist service. - Vital Signs Vital signs: Temp Pulse Resp BP Pulse Ox 98.1 F 91 18 128/78 H 98 11/07/17 21:31 11/07/17 21:31 11/07/17 21:31 11/07/17 21:31 11/07/17 21:31 - Laboratory Result Diagrams: 11/07/17 20:02 11/07/17 19:14 Laboratory results interpreted by me: 11/07/17 11/07/17 11/07/17 19:14 20:02 21:00 RBC 4.09 L Hgb 13.2 L D Plt Count 70 L BUN 23 H Glucose 547 H* Lipase 853.2 H Urine Glucose (UA) >=500 H Discharge - Discharge Clinical Impression: Acute pancreatitis Qualifiers: Pancreatitis type: other Acute pancreatitis complication: no infection or necrosis Qualified Code(s): K85.80 - Other acute pancreatitis without necrosis or infection Condition: Good Disposition: HOME, SELF-CARE Additional Instructions: You have been diagnosed with a mild case of pancreatitis. You have been through this before, and we are going to discharge you this time with nausea and pain medicine. I would like you to not eat anything tonight, and begin eating a liquid diet tomorrow. As long as she does not feel nauseous she may advance her diet from liquid to broth then to solids but avoid spicy fatty foods and alcohol. Take pain and nausea medicine as prescribed. Please check your blood sugar because it was high today in the emergency room, this is likely from the steroid medicine you have been taking. I would like you to see your regular doctor first thing on Thursday. Please return to the emergency room if the pain becomes unbearable you vomit or you cannot hold any food down. Prescriptions: Ondansetron [Zofran Odt 4 mg Tablet] 1 - 2 tab PO Q4H PRN #15 tab.rapdis PRN Reason: For Nausea/Vomiting Oxycodone HCl/Acetaminophen [Percocet 5-325 mg Tablet] 1 - 2 tab PO Q4H PRN #25 tablet PRN Reason: Referrals: FAHEEM CHOI PA-C [Primary Care Provider] - Follow up as needed
[2017-11-07 19:48] LABS: ALANINE AMINOTRANSFERASE 53 U/L (21-72); ALBUMIN 3.8 g/dL (3.5-5.0); ALKALINE PHOSPHATASE 102 U/L (38-126); ANION GAP 13 (5-19); ASPARTATE AMINO TRANSFERASE 51 U/L (17-59); BILIRUBIN,DIRECT 0.4 mg/dL (0.0-0.4); BILIRUBIN,TOTAL 0.5 mg/dL (0.2-1.3); BLOOD UREA NITROGEN 23 mg/dL (7-20); CALCIUM 9.8 mg/dL (8.4-10.2); CARBON DIOXIDE 26 mmol/L (22-30); CHLORIDE 100 mmol/L (98-107); LIPASE 853.2 U/L (23-300); SODIUM 138.6 mmol/L (137-145); TOTAL PROTEIN 6.5 g/dL (6.3-8.2)
[2017-11-07 20:20] LABS: ABSOLUTE LYMPHOCYTES (AUTO) 1.4 10^3/uL (0.5-4.7); ABSOLUTE MONOCYTES (AUTO) 0.4 10^3/uL (0.1-1.4); ABSOLUTE NEUT (AUTO) 3.1 10^3/uL (1.7-8.2); BASOPHILS % (AUTO) 0.9 % (0-2); EOSINOPHILS % (AUTO) 0.8 % (0-6); LYMPHOCYTES % (AUTO) 28.2 % (13-45); MEAN CORPUSCULAR HEMOGLOBIN 32.2 pg (27.0-33.4); MEAN CORPUSCULAR HGB CONC 33.8 g/dL (32.0-36.0); MEAN CORPUSCULAR VOLUME 95 fl (80-97); MONOCYTES % (AUTO) 8.3 % (3-13); RED BLOOD COUNT 4.09 10^6/uL (4.35-5.55); RED CELL DISTRIBUTION WIDTH 13.9 % (11.5-14.0); SEGMENTED NEUTROPHILS % (AUTO) 61.8 % (42-78); TOTAL CELLS COUNTED % (AUTO) 100 %; WHITE BLOOD COUNT 4.9 10^3/uL (4.0-10.5)
[2017-11-07 20:21] LABS: GLUCOSE 547 mg/dL (75-110)
[2017-11-07 20:26] LABS: HEMOGLOBIN 13.2 g/dL (13.5-17.0)
[2017-11-07 20:27] LABS: PLATELET COUNT 70 10^3/uL (150-450)
[2017-11-07 21:13] LABS: APPEARANCE,URINE CLEAR; BILIRUBIN,URINE NEGATIVE (NEGATIVE); COLOR,URINE STRAW; GLUCOSE, URINE >=500 mg/dL (NEGATIVE); KETONES,URINE NEGATIVE (NEGATIVE); LEUKOCYTE ESTERASE,URINE NEGATIVE (NEGATIVE); NITRITE,URINE NEGATIVE (NEGATIVE); PROTEIN,URINE NEGATIVE (NEGATIVE); UROBILINOGEN,URINE NEGATIVE mg/dL (<2.0)
[2017-11-07] MEDS ORDERED: INSULIN REG, HUMAN 100 UNIT/ML 3 ML VIAL (PYX) IV ONE (21:34)
--- NOTE | 2017-11-07 22:15 | RADIOLOGY REPORT (SQ) ---
EXAM DESCRIPTION: CT ABD/PELVIS NO ORAL OR IV COMPLETED DATE/TIME: 11/07/2017 10:06 pm REASON FOR STUDY: pancreatitis? COMPARISON: None. TECHNIQUE: CT scan of the abdomen and pelvis performed without intravenous or oral contrast. Images reviewed with lung, soft tissue, and bone windows. Reconstructed coronal and sagittal MPR images revi ewed. All images stored on PACS. All CT scanners at this facility use dose modulation, iterative reconstruction, and/or weight based d osing when appropriate to reduce radiation dose to as low as reasonably achievable (ALARA). [facility]: Dose Right [facility]: CareDose [facility]: Dose Right [facility]: Teradose 4D [facility]: Jugo RADIATION DOSE: CT Rad equipment meets quality standard of care and radiation dose reduction techniq ues were employed. CTDIvol: 20.7 mGy. DLP: 1214 mGy-cm.mGy. LIMITATIONS: None. FINDINGS: LOWER CHEST: No significant findings. No nodules or infiltrates. NON-CONTRASTED LIVER, SPLEEN, ADRENALS: Evaluation limited by lack of IV contrast. No identified sign ificant masses. PANCREAS: Very minimal peripancreatic fat stranding could indicate minimal pancreatitis. No masses. GALLBLADDER: Surgically absent. RIGHT KIDNEY AND URETER: No suspicious masses. Assessment limited by lack of IV contrast. No signif icant calcifications. No hydronephrosis or hydroureter. LEFT KIDNEY AND URETER: No suspicious masses. Assessment limited by lack of IV contrast. No signifi cant calcifications. No hydronephrosis or hydroureter. AORTA AND RETROPERITONEUM: No aneurysm. No retroperitoneal masses or adenopathy. BOWEL AND PERITONEAL CAVITY: No obvious masses or inflammatory changes. No free fluid. APPENDIX: Not visualized. PELVIS, BLADDER, AND ABDOMINAL WALL:No abnormal masses. No free fluid. Bladder normal. BONES: No significant findings. OTHER: No other significant finding. IMPRESSION: Minimal peripancreatic fat stranding compatible with clinical diagnosis of pancreatitis. COMMENT: Quality ID # [id number]: Final reports with documentation of one or more dose reduction techniques (e.g., Automated exposure control, adjustment of the mA and/or kV according to patient size, use of iterative reconstruction technique) TECHNICAL DOCUMENTATION: JOB ID: [id number] [employer]- All Rights Reserved
[2017-11-07] MEDS ORDERED: OXYCODONE HCL SR 10 MG TABLET PO ONE (22:34)
[2017-11-07] MEDS ORDERED: ONDANSETRON 4 MG TAB.RAPDIS PO ONE (22:34)
[2017-11-07 23:20] VITALS: BP 127/73
== END 2017-11-07 23:46 | disposition home or self-care (01) ==
LOC: ER 18:27
DX: K85.80 Other acute pancreatitis without necrosis or infection (principal); R10.9 Unspecified abdominal pain; R11.0 Nausea; E11.9 Type 2 diabetes mellitus without complications; Z87.891 Personal history of nicotine dependence; Z86.718 Personal history of other venous thrombosis and embolism; Z86.711 Personal history of pulmonary embolism; Z90.49 Acquired absence of other specified parts of digestive tract
CPT/HCPCS: 96376; 99284; 96361; 96374; 36415; 82962; 83690; 85025; 80053; 81001; 74176; A9270 ×2; J2270; J7030; J1815; S0119

== ENCOUNTER 2017-11-11 16:48 | Emergency (ER) | payer MEDICARE, MEDICAID ==
[2017-11-11] MEDS ORDERED: OXYCODONE-ACETAMINOPHEN 5-325 MG TABLET PO ONE (18:02)
[2017-11-11] MEDS ORDERED: ONDANSETRON 4 MG TAB.RAPDIS PO ONE (18:02)
--- NOTE | 2017-11-11 18:04 | ER Document Report ---
ED Medical Screen (RME) - General Chief Complaint: Abdominal Pain Stated Complaint: ABDOMINAL PAIN Time Seen by Provider: 11/11/17 17:50 Notes: This 47-year-old male patient with history of pancreatitis. Complains of abdominal pain for 2 days. He saw his primary care this morning and was told to come the emergency room he got worse. He was seen here on 11/05/2017 and again on 11/07/2017 with pancreatitis and a lipase in the 7 800 range. He was admitted last year for pancreatitis. He reports he used to be a heavy drinker. He states he quit drinking 2 weeks ago. He indicates most of his pain is across his mid lower abdomen and not epigastric region. Exam shows tenderness in the left lower abdomen and the epigastric region. I have greeted and performed a rapid initial assessment of this patient. A comprehensive ED assessment and evaluation of the patient, analysis of test results and completion of the medical decision making process will be conducted by additional ED providers. TRAVEL OUTSIDE OF THE [place] IN LAST 30 DAYS: No - Related Data Allergies/Adverse Reactions: Iodinated Contrast- Oral and IV Dye Allergy (Unknown, Verified 11/11/17 16:51) IV dye Allergy (Uncoded 11/11/17 16:51) Past Medical History - Social History Chew tobacco use (# tins/day): No Frequency of alcohol use: stopped oct 19 2017 Drug Abuse: None - Past Medical History Cardiac Medical History: Reports: Hx DVT, Hx Hypercholesterolemia, Hx Hypertension, Hx Pulmonary Embolism Denies: Hx Atrial Fibrillation, Hx Congestive Heart Failure, Hx Coronary Artery Disease, Hx Heart Attack Pulmonary Medical History: Reports: Hx Bronchitis, Hx Sleep Apnea - Noncompliant with uncomfortable mask. Denies: Hx Asthma, Hx COPD Neurological Medical History: Denies: Hx Seizures Endocrine Medical History: Reports: Hx Diabetes Mellitus Type 1 - Now has a functioning glucometer, Hx Diabetes Mellitus Type 2. Denies: Hx Hyperthyroidism , Hx Hypothyroidism Renal/ Medical History: Denies: Hx Peritoneal Dialysis GI Medical History: Reports: Hx Gastroesophageal Reflux Disease. Denies: Hx Cirrhosis, Hx Hepatitis Musculoskeltal Medical History: Reports Hx Arthritis Psychiatric Medical History: Reports: Hx Bipolar Disorder, Hx Depression - personality disorder, Hx Schizoaffective Disorder Infectious Medical History: Denies: Hx Hepatitis Past Surgical History: Reports: Hx Cholecystectomy, Hx Orthopedic Surgery - Immunizations Hx Diphtheria, Pertussis, Tetanus Vaccination: No Physical Exam - Vital signs Vitals: Temp Pulse Resp BP Pulse Ox 98.2 F 95 20 141/69 H 93 11/11/17 16:57 11/11/17 16:57 11/11/17 16:57 11/11/17 16:57 11/11/17 16:57 Course - Vital Signs Vital signs: Temp Pulse Resp BP Pulse Ox 98.2 F 95 20 141/69 H 93 11/11/17 16:57 11/11/17 16:57 11/11/17 16:57 11/11/17 16:57 11/11/17 16:57
[2017-11-11 18:58] LABS: ABSOLUTE EOSINOPHILS # (AUTO) 0.1 10^3/uL (0.0-0.6); ABSOLUTE LYMPHOCYTES (AUTO) 1.8 10^3/uL (0.5-4.7); ABSOLUTE MONOCYTES (AUTO) 0.7 10^3/uL (0.1-1.4); ABSOLUTE NEUT (AUTO) 5.4 10^3/uL (1.7-8.2); BASOPHILS % (AUTO) 0.4 % (0-2); EOSINOPHILS % (AUTO) 1.7 % (0-6); HEMATOCRIT 44.9 % (37.9-51.0); HEMOGLOBIN 15.6 g/dL (13.5-17.0); LYMPHOCYTES % (AUTO) 22.7 % (13-45); MEAN CORPUSCULAR HEMOGLOBIN 33.1 pg (27.0-33.4); MEAN CORPUSCULAR HGB CONC 34.8 g/dL (32.0-36.0); MEAN CORPUSCULAR VOLUME 95 fl (80-97); MONOCYTES % (AUTO) 8.6 % (3-13); PLATELET COUNT 128 10^3/uL (150-450); RED BLOOD COUNT 4.71 10^6/uL (4.35-5.55); RED CELL DISTRIBUTION WIDTH 14.2 % (11.5-14.0); SEGMENTED NEUTROPHILS % (AUTO) 66.6 % (42-78); TOTAL CELLS COUNTED % (AUTO) 100 %; WHITE BLOOD COUNT 8.1 10^3/uL (4.0-10.5)
[2017-11-11 19:02] LABS: APPEARANCE,URINE SLIGHTLY-CLOUDY; BILIRUBIN,URINE NEGATIVE (NEGATIVE); COLOR,URINE YELLOW; GLUCOSE, URINE >=500 mg/dL (NEGATIVE); KETONES,URINE NEGATIVE (NEGATIVE); LEUKOCYTE ESTERASE,URINE NEGATIVE (NEGATIVE); NITRITE,URINE NEGATIVE (NEGATIVE); PROTEIN,URINE NEGATIVE (NEGATIVE); URINE SPECIFIC GRAVITY 1.022
[2017-11-11 19:18] LABS: ALANINE AMINOTRANSFERASE 63 U/L (21-72); ALBUMIN 4.5 g/dL (3.5-5.0); ALKALINE PHOSPHATASE 97 U/L (38-126); ANION GAP 11 (5-19); ASPARTATE AMINO TRANSFERASE 62 U/L (17-59); BILIRUBIN,DIRECT 0.2 mg/dL (0.0-0.4); BILIRUBIN,TOTAL 0.5 mg/dL (0.2-1.3); BLOOD UREA NITROGEN 13 mg/dL (7-20); CARBON DIOXIDE 28 mmol/L (22-30); CHLORIDE 102 mmol/L (98-107); GLUCOSE 230 mg/dL (75-110); LIPASE 455.6 U/L (23-300); POTASSIUM 4.1 mmol/L (3.6-5.0); SODIUM 141.1 mmol/L (137-145); TOTAL PROTEIN 7.4 g/dL (6.3-8.2)
--- NOTE | 2017-11-11 20:48 | ER Document Report ---
ED GI/ - General Chief Complaint: Abdominal Pain Stated Complaint: ABDOMINAL PAIN Time Seen by Provider: 11/11/17 17:50 Notes: 37-year-old male to emergency department complaining abdominal pain. Patient has a long-standing history of pancreatitis. Has been seen multiple occasions. States that he is having nausea and vomiting with abdominal pain. Has been taking Percocet but not helping. States that he went to see his primary care doctor who sent him back to the ER to be reevaluated. Pain is in the epigastric region. Some reflux. Has any pain radiating to the back. Pain is rated as 4 out of 5 on a numeric pain scale. TRAVEL OUTSIDE OF THE [place] IN LAST 30 DAYS: No - HPI Patient complains to provider of: Abdominal pain, Diarrhea, Vomiting Onset: Other - Chronic Timing/Duration: Gradual Quality of pain: Achy - Related Data Allergies/Adverse Reactions: Iodinated Contrast- Oral and IV Dye Allergy (Unknown, Verified 11/11/17 16:51) IV dye Allergy (Uncoded 11/11/17 16:51) Past Medical History - Social History Smoking Status: Never Smoker Chew tobacco use (# tins/day): No Frequency of alcohol use: stopped oct 19 2017 Drug Abuse: None Family History: Reviewed & Not Pertinent, COPD Patient has suicidal ideation: No Patient has homicidal ideation: No - Past Medical History Cardiac Medical History: Reports: Hx DVT, Hx Hypercholesterolemia, Hx Hypertension, Hx Pulmonary Embolism Denies: Hx Atrial Fibrillation, Hx Congestive Heart Failure, Hx Coronary Artery Disease, Hx Heart Attack Pulmonary Medical History: Reports: Hx Bronchitis, Hx Sleep Apnea - Noncompliant with uncomfortable mask. Denies: Hx Asthma, Hx COPD Neurological Medical History: Denies: Hx Seizures Endocrine Medical History: Reports: Hx Diabetes Mellitus Type 1 - Now has a functioning glucometer, Hx Diabetes Mellitus Type 2. Denies: Hx Hyperthyroidism , Hx Hypothyroidism Renal/ Medical History: Denies: Hx Peritoneal Dialysis GI Medical History: Reports: Hx Gastroesophageal Reflux Disease. Denies: Hx Cirrhosis, Hx Hepatitis Musculoskeltal Medical History: Reports Hx Arthritis Psychiatric Medical History: Reports: Hx Bipolar Disorder, Hx Depression - personality disorder, Hx Schizoaffective Disorder Infectious Medical History: Denies: Hx Hepatitis Past Surgical History: Reports: Hx Cholecystectomy, Hx Orthopedic Surgery - Immunizations Hx Diphtheria, Pertussis, Tetanus Vaccination: No Review of Systems - Review of Systems Constitutional: No symptoms reported EENT: No symptoms reported Cardiovascular: No symptoms reported Respiratory: No symptoms reported Gastrointestinal: Abdominal pain, Diarrhea, Nausea, Vomiting Genitourinary: No symptoms reported Male Genitourinary: No symptoms reported Musculoskeletal: No symptoms reported Skin: No symptoms reported Hematologic/Lymphatic: No symptoms reported Neurological/Psychological: No symptoms reported Physical Exam - Vital signs Vitals: Temp Pulse Resp BP Pulse Ox 98.2 F 95 20 141/69 H 93 11/11/17 16:57 11/11/17 16:57 11/11/17 16:57 11/11/17 16:57 11/11/17 16:57 Interpretation: Normal - General General appearance: Appears well, Alert - HEENT Head: Normocephalic, Atraumatic Eyes: Normal Pupils: PERRL - Respiratory Respiratory status: No respiratory distress Chest status: Nontender Breath sounds: Normal Chest palpation: Normal - Cardiovascular Rhythm: Regular Heart sounds: Normal auscultation Murmur: No - Abdominal Inspection: Normal Distension: No distension Bowel sounds: Normal Tenderness: Tender - Mild epigastric tenderness. No guarding. No rebound. Organomegaly: No organomegaly - Back Back: Normal, Nontender - Extremities General upper extremity: Normal inspection, Nontender, Normal color, Normal ROM , Normal temperature General lower extremity: Normal inspection, Nontender, Normal color, Normal ROM , Normal temperature, Normal weight bearing. No: Estevan's sign - Neurological Neuro grossly intact: Yes Cognition: Normal Orientation: AAOx4 [place] Coma Scale Eye Opening: Spontaneous [place] Coma Scale Verbal: Oriented [place] Coma Scale Motor: Obeys Commands Jose A Coma Scale Total: 15 Speech: Normal Motor strength normal: LUE, RUE, LLE, RLE Sensory: Normal - Psychological Associated symptoms: Normal affect, Normal mood - Skin Skin Temperature: Warm Skin Moisture: Dry Skin Color: Normal Course - Re-evaluation Re-evalutation: 11/11/17 21:54 At length the patient regarding chronic pancreatitis. Spoke as well with the hospitalist, Dr. Finley. Dr. Finley does not feel patient warrants admission at this time based on his labs. Will hydrate up here while in the ER. Will get some pain medication, nausea meds, antacid. Will given follow-up with the GI doctor. Patient verbalized understanding these instructions. Will DC after fluids are complete. 11/11/17 21:55 Laboratory 11/11/17 11/11/17 11/11/17 18:40 18:40 18:40 WBC 8.1 RBC 4.71 Hgb 15.6 Hct 44.9 MCV 95 MCH 33.1 MCHC 34.8 RDW 14.2 H Plt Count 128 L Seg Neutrophils % 66.6 Lymphocytes % 22.7 Monocytes % 8.6 Eosinophils % 1.7 Basophils % 0.4 Absolute Neutrophils 5.4 Absolute Lymphocytes 1.8 Absolute Monocytes 0.7 Absolute Eosinophils 0.1 Absolute Basophils 0.0 Sodium 141.1 Potassium 4.1 Chloride 102 Carbon Dioxide 28 Anion Gap 11 BUN 13 Creatinine 0.93 Est GFR ( Amer) > 60 Est GFR (Non-Af Amer) > 60 Glucose 230 H Calcium 10.0 Total Bilirubin 0.5 Direct Bilirubin 0.2 Neonat Total Bilirubin Not Reportable Neonat Direct Bilirubin Not Reportable Neonat Indirect Bili Not Reportable AST 62 H ALT 63 Alkaline Phosphatase 97 Total Protein 7.4 Albumin 4.5 Lipase 455.6 H Urine Color YELLOW Urine Appearance SLIGHTLY-CLOUDY Urine pH 9.0 Ur Specific Rickman 1.022 Urine Protein NEGATIVE Urine Glucose (UA) >=500 H Urine Ketones NEGATIVE Urine Blood NEGATIVE Urine Nitrite NEGATIVE Urine Bilirubin NEGATIVE Urine Urobilinogen 2.0 H Ur Leukocyte Esterase NEGATIVE Urine WBC (Auto) 1 Urine RBC (Auto) 0 Urine Mucus (Auto) RARE Urine Ascorbic Acid NEGATIVE Serum Alcohol 11/11/17 18:40 WBC RBC Hgb Hct MCV MCH MCHC RDW Plt Count Seg Neutrophils % Lymphocytes % Monocytes % Eosinophils % Basophils % Absolute Neutrophils Absolute Lymphocytes Absolute Monocytes Absolute Eosinophils Absolute Basophils Sodium Potassium Chloride Carbon Dioxide Anion Gap BUN Creatinine Est GFR ( Amer) Est GFR (Non-Af Amer) Glucose Calcium Total Bilirubin Direct Bilirubin Neonat Total Bilirubin Neonat Direct Bilirubin Neonat Indirect Bili AST ALT Alkaline Phosphatase Total Protein Albumin Lipase Urine Color Urine Appearance Urine pH Ur Specific Rickman Urine Protein Urine Glucose (UA) Urine Ketones Urine Blood Urine Nitrite Urine Bilirubin Urine Urobilinogen Ur Leukocyte Esterase Urine WBC (Auto) Urine RBC (Auto) Urine Mucus (Auto) Urine Ascorbic Acid Serum Alcohol < 10 - Vital Signs Vital signs: Temp Pulse Resp BP Pulse Ox 98.2 F 95 20 141/69 H 93 11/11/17 16:57 11/11/17 16:57 11/11/17 16:57 11/11/17 16:57 11/11/17 16:57 - Laboratory Result Diagrams: 11/11/17 18:40 11/11/17 18:40 Laboratory results interpreted by me: 11/11/17 11/11/17 11/11/17 18:40 18:40 18:40 RDW 14.2 H Plt Count 128 L Glucose 230 H AST 62 H Lipase 455.6 H Urine Glucose (UA) >=500 H Urine Urobilinogen 2.0 H Discharge - Discharge Clinical Impression: Chronic pancreatitis Qualifiers: Pancreatitis type: unspecified pancreatitis type Qualified Code(s): K86.1 - Other chronic pancreatitis Condition: Good Disposition: HOME, SELF-CARE Additional Instructions: Pancreatitis Pancreatitis is an inflammation of the pancreas, an organ at the back of your abdomen. The pancreas produces insulin and enzymes that digest your food. Pancreatitis can be caused by gallstones in the bile duct, by alcohol or viruses, or by excess fat or calcium in the blood stream. Occasionally, pancreatitis occurs when a stomach ulcer moy through into the pancreas. We try to find the cause of pancreatitis, but some tests can't be done until the pancreas heals. The usual symptoms of pancreatitis are pain in the pit of the stomach that goes straight through to the back, vomiting, and low-grade fever. Severe cases require hospital admission, but many patients with mild pancreatitis do well at home. You will probably need medicine for pain and for vomiting. Sometimes we prescribe medicine to decrease stomach acid secretion and to decrease flow of pancreatic juices. Start with a diet of clear liquids (soda pop, juices). When the pain is decreasing, you can add some simple starches (potato, toast, applesauce). Avoid proteins and fats until you are completely painfree. When you're better, your doctor may suggest treatment to prevent future pancreatitis (such as gallbladder removal). Avoid alcohol forever. Get immediate treatment for any future episodes. Contact your doctor at once or return here if you have increasing pain, shortness of breath, general swelling, increasing size of the abdomen, continued vomiting, muscle spasms, or other new symptoms. Prescriptions: Esomeprazole Mag Trihydrate [Nexium] 40 mg PO DAILY 30 Days #30 capsule.dr Hydrocodone/Acetaminophen [[place] 5-325 mg Tabs (6 Tab/ER Disp)] 1 tab PO TID 1 Days #3 dspk Ondansetron [Zofran Odt 4 mg Tablet] 1 - 2 tab PO Q4H PRN #15 tab.rapdis PRN Reason: For Nausea/Vomiting Oxycodone HCl [Oxycodone HCl 10 MG Tablet] 1 tab PO Q6H PRN 4 Days #15 tablet PRN Reason: PAIN Referrals: POWER ZHAO MD [ACTIVE STAFF] - Follow up in 1 week
[2017-11-11] MEDS ORDERED: ONDANSETRON HCL INJ/PF 4 MG/2 ML SDV IV ONE (21:11)
[2017-11-11] MEDS ORDERED: FENTANYL CITRATE INJ/PF 100 MCG/2 ML AMPUL IV ONE (21:11)
[2017-11-11] MEDS ORDERED: FAMOTIDINE 20 MG TABLET PO ONE (21:44)
[2017-11-11] MEDS: NORMAL SALINE 1000 ML 1,000 ML IV PRN ×2 (22:11→22:16)
[2017-11-12 00:16] VITALS: BP 136/79
== END 2017-11-12 00:16 | disposition home or self-care (01) ==
LOC: ER 16:48
DX: K86.1 Other chronic pancreatitis (principal); R10.9 Unspecified abdominal pain; R11.2 Nausea with vomiting, unspecified; K21.9 Gastro-esophageal reflux disease without esophagitis; M54.9 Dorsalgia, unspecified; R10.13 Epigastric pain; Z79.899 Other long term (current) drug therapy
CPT/HCPCS: 99284; 96361; 96374; 96375; 36415; 80307; 83690; 85025; 80053; 81001; A9270 ×3; J3010; J2405; J7030; S0119

== ENCOUNTER → 2017-11-15 | Outpatient (CLI) | payer MEDICARE, MEDICAID ==
--- NOTE | 2017-11-17 11:12 | RADIOLOGY REPORT (SQ) ---
EXAM DESCRIPTION: PET CT LIMITED COMPLETED DATE/TIME: 11/15/2017 10:59 pm REASON FOR STUDY: SOLITARY PULMONARY NODULE COMPARISON: CT chest 05/28/2017, 06/21/2017, 09/24/2017, 11/06/2017 CT abdomen pelvis 11/07/2017, 07/07/2017 RADIONUCLIDE AND DOSE: 12.8 mCi F18 FDG The route of agent administration: Intravenous FASTING BLOOD SUGAR: 110 mg/dl CONTRAST TYPE AND DOSE: No CT contrast given. TECHNIQUE: Blood glucose level was verified. Above dose of FDG was injected intravenously. 2-D seg mented attenuation correction images were obtained from the base of the skull to the midthighs. Nonc ontrast CT images were obtained for attenuation correction and fusion with emission images. CT image s were performed without oral or intravenous contrast and are not sensitive for parenchymal lesions. A series of overlapping emission PET images were obtained. Images reviewed and manipulated at [facility] work station by the radiologist. Images stored on PACS. LIMITATIONS: None. FINDINGS: HEAD AND NECK: No areas of abnormal metabolic activity in the soft tissues of the head and neck. CHEST: On axial image 100, an irregularly-shaped nodule is present in the right upper lobe adjacent t o the intersection of the major and minor fissures. This measures near water density, and is similar in size compared to 05/28/2017, 1.5 x 1 cm in size. Since the prior CT, a central air bubble connecti ng to the segmental upper lobe airway has resolved. This area does exhibit minimal metabolic activit y, with SUV of 1.4. No other pulmonary findings. No mediastinal or hilar metabolically active adenopathy. There is a 1. 7 by 0.9 cm right paratracheal non metabolically active lymph node on axial image 83. ABDOMEN AND PELVIS: There is increased activity in the ascending colon and cecum, SUV of 12.4 in the cecum. This is worrisome for primary colon neoplasm. PROXIMAL LOWER EXTREMITIES: No areas of abnormal metabolic activity in the soft tissues of the lower extremities. BONES: No abnormal metabolic activity in the visualized skeleton. ADDITIONAL CT FINDINGS: Liver has a nodular contour, question cirrhosis. Borderline splenomegaly. P ost cholecystectomy. OTHER: Liver background activity 2.2 SUV. Blood pool background activity 1.8 SUV IMPRESSION: Hypermetabolic lesion in the cecum is worrisome for primary colon cancer. Right upper lobe nodule with mild metabolic activity, could be a mucinous tumor from metastatic colon . Postinflammatory changes in the lung adjacent to the major and minor fissure intersection is possi ble. Primary lung tumor could not entirely be excluded. TECHNICAL DOCUMENTATION: JOB ID: [id number] [employer]- All Rights Reserved
== END ==
LOC: RAD 10-13 16:11
PROVIDERS: ATTEND Internal Medicine Critical Care Medicine
DX: R91.1 Solitary pulmonary nodule (principal); K63.9 Disease of intestine, unspecified; R16.0 Hepatomegaly, not elsewhere classified
CPT/HCPCS: 78814; A9552